=== PATIENT | female | born 1955 | race Caucasian/White ===

== ENCOUNTER 2023-01-30 14:01 | Inpatient (IN) | payer MEDICARE, OTHER ==
[2023-01-30] MEDS ORDERED: SODIUM CHLORIDE 0.9% 1,000 ML IV STA (14:30)
[2023-01-30 15:10] LABS: Anisocytosis Slight; Basophils % (A) 0 %; Eosinophils # (A) 0.1 k/uL (0-0.7); Eosinophils % (A) 2 %; HCT 38.2 % (34.0-46.0); HGB 13.7 gm/dL (11.4-16.0); Lymphocytes % (A) 31 %; MCH 33.8 pg (25.0-35.0); MCHC 35.9 g/dL (31.0-37.0); MCV 94.3 fL (80.0-100.0); Mean Platelet Volume 9.8; Monocytes # (A) 0.3 k/uL (0-1.0); Monocytes % (A) 10 %; Neutrophils # (A) 1.7 k/uL (1.3-7.7); Neutrophils % (A) 55 %; RBC 4.05 m/uL (3.80-5.40); RDW 16.9 % (11.5-15.5); WBC 3.1 k/uL (3.8-10.6)
[2023-01-30 15:24] LABS: INR 1.1 (<1.2); Prothrombin Time 11.4 sec (9.0-12.0)
--- NOTE | 2023-01-30 15:28 | ED ---
Dizziness HPI - General Chief Complaint: Dizziness Stated Complaint: Weakness Time Seen by Provider: 01/30/23 14:21 Source: patient, EMS, RN notes reviewed Mode of arrival: EMS Limitations: no limitations - History of Present Illness Initial Comments: This is a 67-year-old female who presents to the emergency department for dizziness. Patient states that when she went to walk to her mailbox today, she suddenly felt very weak and unsteady. Also felt somewhat disoriented. When she came back inside, she felt like she was stumbling and had to grab onto her boateng and furniture to get around. She denies any chest pain or shortness of breath. She was also worried that her legs might give out on her. Denies any history of similar symptoms in the past. Denies any room spinning sensations. She does report a fall 4 months ago resulting in back pain. States that this has still been bothersome. She did not hit her head or sustain any loss of consciousness. When this occurred, she did feel like she had swelling and numbness in both of her legs. That sensation has since resolved. Additionally, she notes problems with visual changes in the right eye that have been occurring intermittently. With regards to her elevated blood pressure, she used to take metoprolol, however she is not currently taking any medication. Denies any fevers, chills, sore throat, cough, dyspnea, chest pain, palpitations, abdominal pain, nausea, vomiting, diarrhea, or headaches. MD Complaint: dizziness, lightheadedness - Related Data Home Medications Medication Instructions Recorded Confirmed Acetaminophen Tab [Tylenol] 1,000 mg PO Q6H PRN 01/30/23 01/30/23 Omeprazole 20 mg PO DAILY PRN 01/30/23 01/30/23 Previous Rx's Medication Instructions Recorded Aspirin 81 mg PO DAILY #30 tab 02/02/23 Metoprolol Tartrate [Lopressor] 25 mg PO BID #60 tab 02/02/23 Sertraline [Zoloft] 25 mg PO DAILY #30 tab 02/02/23 Thiamine [Vitamin B-1] 100 mg PO DAILY #30 tablet 02/02/23 diazePAM [Valium] 5 mg PO BID PRN #4 tab 02/02/23 hydrALAZINE HCL [Apresoline] 50 mg PO BID #60 tab 02/02/23 Allergies Allergy/AdvReac Type Severity Reaction Status Date / Time fentanyl Allergy Nausea & Verified 01/30/23 15:23 Vomiting hydrocodone [From [place]] Allergy Nausea & Verified 01/30/23 15:23 Vomiting hydromorphone [From Dilaudid] Allergy Nausea & Verified 01/30/23 15:23 Vomiting morphine Allergy Nausea & Verified 01/30/23 15:23 Vomiting oxycodone [From Percocet] Allergy Nausea & Verified 01/30/23 15:23 Vomiting clonazepam [From Klonopin] AdvReac Severe extreme Verified 01/30/23 15:23 drop in Blood pressure prochlorperazine AdvReac Severe Suicidal Verified 01/30/23 15:23 [From Compazine] ideations diphenhydramine AdvReac aggresive Verified 01/30/23 15:23 [From Benadryl] behavior, aggitation Review of Systems ROS Statement: Those systems with pertinent positive or pertinent negative responses have been documented in the HPI. ROS Other: All systems not noted in ROS Statement are negative. Past Medical History Past Medical History: Hypertension, Pneumonia History of Any Multi-Drug Resistant Organisms: None Reported Past Surgical History: Cholecystectomy, Hysterectomy, Tonsillectomy Past Psychological History: Unable to Obtain Smoking Status: Never smoker Past Alcohol Use History: Heavy Past Drug Use History: None Reported - Past Family History Mother Family Medical History: Dementia Sister(s) Family Medical History: Cancer Brother(s) Family Medical History: Cancer General Exam Limitations: no limitations General appearance: alert, in no apparent distress Head exam: Present: atraumatic, normocephalic, normal inspection Eye exam: Present: normal appearance, PERRL, EOMI. Absent: scleral icterus, conjunctival injection, periorbital swelling Respiratory exam: Present: normal lung sounds bilaterally. Absent: respiratory distress, wheezes, rales, rhonchi, stridor Cardiovascular Exam: Present: regular rate, normal rhythm, normal heart sounds. Absent: systolic murmur, diastolic murmur, rubs, gallop, clicks Extremities exam: Present: normal inspection, full ROM, normal capillary refill. Absent: tenderness, pedal edema, joint swelling, calf tenderness Neurological exam: Present: alert, oriented X3, CN II-XII intact Psychiatric exam: Present: normal affect, normal mood Skin exam: Present: warm, dry, intact, normal color. Absent: rash Course Vital Signs 01/30/23 01/30/23 01/30/23 14:08 15:16 17:16 Temperature 98.5 F Pulse Rate 80 80 86 Pulse Rate [ Pulse Oximetery ] Respiratory 18 18 18 Rate Blood Pressure 186/95 194/110 210/111 Blood Pressure [Right Arm] O2 Sat by Pulse 94 L 97 98 Oximetry 01/30/23 01/30/23 01/30/23 19:01 19:44 20:00 Temperature 98.5 F Pulse Rate 89 73 Pulse Rate [ 80 Pulse Oximetery ] Respiratory 18 18 18 Rate Blood Pressure 188/100 167/100 Blood Pressure 168/83 [Right Arm] O2 Sat by Pulse 97 94 L Oximetry 01/30/23 20:27 Temperature Pulse Rate 89 Pulse Rate [ Pulse Oximetery ] Respiratory 18 Rate Blood Pressure 150/100 Blood Pressure [Right Arm] O2 Sat by Pulse 98 Oximetry Medical Decision Making - Medical Decision Making This is a 67-year-old female who presents to the emergency department for dizziness. Was pt. sent in by a medical professional or institution? @ -No Did you speak to anyone other than the patient for history? @ -No Did you review nursing and triage notes? @ -Yes, and I agree, it is accurate with regards to the patient's symptoms. Were old charts reviewed? @ -No Differential Diagnosis? @ -Differential Dizziness: Benign paroxysmal positional Vertigo, Menieres disease, otitis media, acoustic neuroma, vertebrobasilar insufficiency, cerebellar stroke, encephalitis, hypov olemic, arrhythmia, coronary artery syndrome, anemia, this is not meant to be an all-inclusive list EKG interpreted by me (3pts min.)? @ -Sinus rhythm. Ventricular rate 82 bpm, AR interval 147 ms, QRS duration 79 ms, QTC 440 ms. X-rays interpreted by me (1pt min.)? @ -Chest x-ray obtained, my interpretation identifies no localized consolidations or infiltrates. CT interpreted by me (1pt min.)? @ -Computed tomography scan of the brain and c-spine obtained. My interpretation identifies no evidence of an acute intracranial hemorrhage, skull fracture, or cervical spine fracture. CT angiogram of the head and neck obtained as well. My interpretation identifies no evidence of an aneurysm or significant stenosis. What testing was considered but not performed? (CT, X-rays, U/S, labs)? Why? @ -None What meds were considered but not given? Why? @ -None Did you discuss the management of the patient with other professionals? @ -Yes, Dr. Delcid, who accepts the patient for admission. Did you reconcile home meds? @ -No Was smoking cessation discussed for >3mins.? @ -No Was critical care preformed (if so, how long)? @ -No Were there social determinants of health that impacted care today? How? (Homelessness, low income, unemployed, alcoholism, drug addiction, transportation, low edu. Level, literacy, decrease access to med. care, intermediate, rehab)? @ -No Was there de-escalation of care discussed even if they declined? (Discuss DNR or withdrawal of care, Hospice)? @ -No What co-morbidities impacted this encounter? (DM, HTN, Smoking, COPD, CAD, Cancer, CVA, Hep., AIDS, mental health diagnosis, sleep apnea, morbid obesity)? @ -HTN Was patient admitted / discharged? @ -Admitted. Lab work obtained revealing thrombocytopenia and an elevated troponin. Patient has no active chest pain or shortness of breath. However, she does continue to feel somewhat dizzy. Liver enzymes are also elevated and there is mild hypokalemia. Patient does have a history of heavy alcohol abuse. Chest x-ray, CT angiogram of the head and neck, and CT scan of the brain without contrast were obtained. Computed tomography scan of the brain and C-spine and CT angiogram of the head and neck reveal no acute findings. Chest x-ray also had no acute irregularities. Her blood pressure did continue to increase and was notably elevated at 210/111. Patient has a history of hypertension is not currently being treated for it. IV labetalol was administered. She was admitted to medicine for further management of dizziness, elevated troponin, and hypertension. Consults for neurology and cardiology placed per the admitting team's request. She was started on thiamine and a vitamin B1 level was ordered a s well as Q4 neuro checks. Undiagnosed new problem with uncertain prognosis? @ -None Drug Therapy requiring intensive monitoring for toxicity (Heparin, Nitro, Insulin, Cardizem)? @ -None Were any procedures done? @ -None Diagnosis/symptom? @ -Dizziness, elevated troponin, hypertensive emergency Acute, or Chronic, or Acute on Chronic? @ -Acute Uncomplicated (without systemic symptoms) or Complicated (systemic symptoms)? @ -Complicated Side effects of treatment? @ -None Exacerbation, Progression, or Severe Exacerbation] @ -Not applicable Poses a threat to life or bodily function? @ -Yes This case was discussed in detail with the attending ED physician, Dr. Terrell. Presentation, findings, and treatment plan discussed in detail as well. - Lab Data Result diagrams: 02/01/23 09:38 02/01/23 09:38 Lab Results 01/30/23 01/30/23 01/30/23 Range/Units 14:42 14:42 14:42 WBC 3.1 L (3.8-10.6) k/uL RBC 4.05 (3.80-5.40) m/uL Hgb 13.7 (11.4-16.0) gm/dL Hct 38.2 (34.0-46.0) % MCV 94.3 (80.0-100.0) fL MCH 33.8 (25.0-35.0) pg MCHC 35.9 (31.0-37.0) g/dL RDW 16.9 H (11.5-15.5) % Plt Count 71 L (150-450) k/uL MPV 9.8 Neutrophils % 55 % Lymphocytes % 31 % Monocytes % 10 % Eosinophils % 2 % Basophils % 0 % Neutrophils # 1.7 (1.3-7.7) k/uL Lymphocytes # 1.0 (1.0-4.8) k/uL Monocytes # 0.3 (0-1.0) k/uL Eosinophils # 0.1 (0-0.7) k/uL Basophils # 0.0 (0-0.2) k/uL Manual Slide Review Performed Anisocytosis Slight Macrocytosis PT 11.4 (9.0-12.0) sec INR 1.1 (<1.2) Sodium 134 L (137-145) mmol/L Potassium 3.2 L (3.5-5.1) mmol/L Chloride 94 L (98-107) mmol/L Carbon Dioxide 29 (22-30) mmol/L Anion Gap 11 mmol/L BUN 17 (7-17) mg/dL Creatinine 0.76 (0.52-1.04) mg/dL Est GFR (CKD-EPI)AfAm >90 (>60 ml/min/1.73 sqM) Est GFR (CKD-EPI)NonAf 83 (>60 ml/min/1.73 sqM) Glucose 151 H (74-99) mg/dL Estimated Ave Glu mg/dL Hemoglobin A1c (0.0-6.0) % Plasma Lactic Acid Mark (0.7-2.0) mmol/L Calcium 8.8 (8.4-10.2) mg/dL Magnesium (1.6-2.3) mg/dL Total Bilirubin 1.7 H (0.2-1.3) mg/dL Conjugated Bilirubin (0.0-0.3) mg/dL Unconjugated Bilirubin (0.0-1.1) mg/dL Delta Bilirubin (0.0-0.2) mg/dL AST 130 H (14-36) U/L ALT 98 H (4-34) U/L Alkaline Phosphatase 48 (38-126) U/L Troponin I (0.000-0.034) ng/mL Total Protein 7.5 (6.3-8.2) g/dL Albumin 4.6 (3.5-5.0) g/dL Triglycerides (0.00-149.00) mg/dL Cholesterol (0.00-200.00) mg/dL LDL Cholesterol, Calc (0.0-131.0) mg/dL VLDL Cholesterol, Calc (5.00-40.00) mg/dL HDL Cholesterol (40.00-60.00) mg/dL Cholesterol/HDL Ratio Ratio Vitamin B12 (200.0-944.0) pg/mL Folate (4.40-31.00) ng/mL TSH 1.680 (0.465-4.680) mIU/L Urine Color Urine Appearance (Clear) Urine pH (5.0-8.0) Ur Specific [place] (1.001-1.035) Urine Protein (Negative) Urine Glucose (UA) (Negative) Urine Ketones (Negative) Urine Blood (Negative) Urine Nitrite (Negative) Urine Bilirubin (Negative) Urine Urobilinogen (<2.0) mg/dL Ur Leukocyte Esterase (Negative) Urine RBC (0-5) /hpf Urine WBC (0-5) /hpf Ur Squamous Epith Cells (0-4) /hpf Amorphous Sediment (None) /hpf Urine Bacteria (None) /hpf Hyaline Casts (0-2) /lpf Urine Mucus (None) /hpf Urine Opiates Screen (NotDetected) Ur Oxycodone Screen (NotDetected) Urine Methadone Screen (NotDetected) Ur Propoxyphene Screen (NotDetected) Ur Barbiturates Screen (NotDetected) U Tricyclic Antidepress (NotDetected) Ur Phencyclidine Scrn (NotDetected) Ur Amphetamines Screen (NotDetected) U Methamphetamines Scrn (NotDetected) U Benzodiazepines Scrn (NotDetected) Urine Cocaine Screen (NotDetected) U Marijuana (THC) Screen (NotDetected) 01/30/23 01/30/23 01/30/23 Range/Units 14:42 14:42 20:58 WBC (3.8-10.6) k/uL RBC (3.80-5.40) m/uL Hgb (11.4-16.0) gm/dL Hct (34.0-46.0) % MCV (80.0-100.0) fL MCH (25.0-35.0) pg MCHC (31.0-37.0) g/dL RDW (11.5-15.5) % Plt Count (150-450) k/uL MPV Neutrophils % % Lymphocytes % % Monocytes % % Eosinophils % % Basophils % % Neutrophils # (1.3-7.7) k/uL Lymphocytes # (1.0-4.8) k/uL Monocytes # (0-1.0) k/uL Eosinophils # (0-0.7) k/uL Basophils # (0-0.2) k/uL Manual Slide Review Anisocytosis Macrocytosis PT (9.0-12.0) sec INR (<1.2) Sodium (137-145) mmol/L Potassium (3.5-5.1) mmol/L Chloride (98-107) mmol/L Carbon Dioxide (22-30) mmol/L Anion Gap mmol/L BUN (7-17) mg/dL Creatinine (0.52-1.04) mg/dL Est GFR (CKD-EPI)AfAm (>60 ml/min/1.73 sqM) Est GFR (CKD-EPI)NonAf (>60 ml/min/1.73 sqM) Glucose (74-99) mg/dL Estimated Ave Glu mg/dL Hemoglobin A1c (0.0-6.0) % Plasma Lactic Acid Mark 1.7 (0.7-2.0) mmol/L Calcium (8.4-10.2) mg/dL Magnesium (1.6-2.3) mg/dL Total Bilirubin (0.2-1.3) mg/dL Conjugated Bilirubin (0.0-0.3) mg/dL Unconjugated Bilirubin (0.0-1.1) mg/dL Delta Bilirubin (0.0-0.2) mg/dL AST (14-36) U/L ALT (4-34) U/L Alkaline Phosphatase (38-126) U/L Troponin I 0.039 H* 0.046 H* (0.000-0.034) ng/mL Total Protein (6.3-8.2) g/dL Albumin (3.5-5.0) g/dL Triglycerides (0.00-149.00) mg/dL Cholesterol (0.00-200.00) mg/dL LDL Cholesterol, Calc (0.0-131.0) mg/dL VLDL Cholesterol, Calc (5.00-40.00) mg/dL HDL Cholesterol (40.00-60.00) mg/dL Cholesterol/HDL Ratio Ratio Vitamin B12 (200.0-944.0) pg/mL Folate (4.40-31.00) ng/mL TSH (0.465-4.680) mIU/L Urine Color Urine Appearance (Clear) Urine pH (5.0-8.0) Ur Specific [place] (1.001-1.035) Urine Protein (Negative) Urine Glucose (UA) (Negative) Urine Ketones (Negative) Urine Blood (Negative) Urine Nitrite (Negative) Urine Bilirubin (Negative) Urine Urobilinogen (<2.0) mg/dL Ur Leukocyte Esterase (Negative) Urine RBC (0-5) /hpf Urine WBC (0-5) /hpf Ur Squamous Epith Cells (0-4) /hpf Amorphous Sediment (None) /hpf Urine Bacteria (None) /hpf Hyaline Casts (0-2) /lpf Urine Mucus (None) /hpf Urine Opiates Screen (NotDetected) Ur Oxycodone Screen (NotDetected) Urine Methadone Screen (NotDetected) Ur Propoxyphene Screen (NotDetected) Ur Barbiturates Screen (NotDetected) U Tricyclic Antidepress (NotDetected) Ur Phencyclidine Scrn (NotDetected) Ur Amphetamines Screen (NotDetected) U Methamphetamines Scrn (NotDetected) U Benzodiazepines Scrn (NotDetected) Urine Cocaine Screen (NotDetected) U Marijuana (THC) Screen (NotDetected) 01/31/23 01/31/23 01/31/23 Range/Units 01:17 09:31 09:31 WBC 2.5 L (3.8-10.6) k/uL RBC 4.06 (3.80-5.40) m/uL Hgb 14.1 (11.4-16.0) gm/dL Hct 39.3 (34.0-46.0) % MCV 96.9 (80.0-100.0) fL MCH 34.7 (25.0-35.0) pg MCHC 35.8 (31.0-37.0) g/dL RDW 17.1 H (11.5-15.5) % Plt Count 64 L (150-450) k/uL MPV 11.8 Neutrophils % 44 % Lymphocytes % 39 % Monocytes % 10 % Eosinophils % 3 % Basophils % 1 % Neutrophils # 1.1 L (1.3-7.7) k/uL Lymphocytes # 1.0 (1.0-4.8) k/uL Monocytes # 0.2 (0-1.0) k/uL Eosinophils # 0.1 (0-0.7) k/uL Basophils # 0.0 (0-0.2) k/uL Manual Slide Review Anisocytosis Slight Macrocytosis Slight PT (9.0-12.0) sec INR (<1.2) Sodium (137-145) mmol/L Potassium (3.5-5.1) mmol/L Chloride (98-107) mmol/L Carbon Dioxide (22-30) mmol/L Anion Gap mmol/L BUN (7-17) mg/dL Creatinine (0.52-1.04) mg/dL Est GFR (CKD-EPI)AfAm (>60 ml/min/1.73 sqM) Est GFR (CKD-EPI)NonAf (>60 ml/min/1.73 sqM) Glucose (74-99) mg/dL Estimated Ave Glu mg/dL Hemoglobin A1c (0.0-6.0) % Plasma Lactic Acid Mark (0.7-2.0) mmol/L Calcium (8.4-10.2) mg/dL Magnesium (1.6-2.3) mg/dL Total Bilirubin (0.2-1.3) mg/dL Conjugated Bilirubin (0.0-0.3) mg/dL Unconjugated Bilirubin (0.0-1.1) mg/dL Delta Bilirubin (0.0-0.2) mg/dL AST (14-36) U/L ALT (4-34) U/L Alkaline Phosphatase (38-126) U/L Troponin I 0.036 H* (0.000-0.034) ng/mL Total Protein (6.3-8.2) g/dL Albumin (3.5-5.0) g/dL Triglycerides (0.00-149.00) mg/dL Cholesterol (0.00-200.00) mg/dL LDL Cholesterol, Calc (0.0-131.0) mg/dL VLDL Cholesterol, Calc (5.00-40.00) mg/dL HDL Cholesterol (40.00-60.00) mg/dL Cholesterol/HDL Ratio Ratio Vitamin B12 (200.0-944.0) pg/mL Folate 11.60 (4.40-31.00) ng/mL TSH (0.465-4.680) mIU/L Urine Color Urine Appearance (Clear) Urine pH (5.0-8.0) Ur Specific [place] (1.001-1.035) Urine Protein (Negative) Urine Glucose (UA) (Negative) Urine Ketones (Negative) Urine Blood (Negative) Urine Nitrite (Negative) Urine Bilirubin (Negative) Urine Urobilinogen (<2.0) mg/dL Ur Leukocyte Esterase (Negative) Urine RBC (0-5) /hpf Urine WBC (0-5) /hpf Ur Squamous Epith Cells (0-4) /hpf Amorphous Sediment (None) /hpf Urine Bacteria (None) /hpf Hyaline Casts (0-2) /lpf Urine Mucus (None) /hpf Urine Opiates Screen (NotDetected) Ur Oxycodone Screen (NotDetected) Urine Methadone Screen (NotDetected) Ur Propoxyphene Screen (NotDetected) Ur Barbiturates Screen (NotDetected) U Tricyclic Antidepress (NotDetected) Ur Phencyclidine Scrn (NotDetected) Ur Amphetamines Screen (NotDetected) U Methamphetamines Scrn (NotDetected) U Benzodiazepines Scrn (NotDetected) Urine Cocaine Screen (NotDetected) U Marijuana (THC) Screen (NotDetected) 01/31/23 01/31/23 01/31/23 Range/Units 09:31 12:08 17:31 WBC (3.8-10.6) k/uL RBC (3.80-5.40) m/uL Hgb (11.4-16.0) gm/dL Hct (34.0-46.0) % MCV (80.0-100.0) fL MCH (25.0-35.0) pg MCHC (31.0-37.0) g/dL RDW (11.5-15.5) % Plt Count (150-450) k/uL MPV Neutrophils % % Lymphocytes % % Monocytes % % Eosinophils % % Basophils % % Neutrophils # (1.3-7.7) k/uL Lymphocytes # (1.0-4.8) k/uL Monocytes # (0-1.0) k/uL Eosinophils # (0-0.7) k/uL Basophils # (0-0.2) k/uL Manual Slide Review Anisocytosis Macrocytosis PT (9.0-12.0) sec INR (<1.2) Sodium 140 (137-145) mmol/L Potassium 3.0 L (3.5-5.1) mmol/L Chloride 99 (98-107) mmol/L Carbon Dioxide 32 H (22-30) mmol/L Anion Gap 9 mmol/L BUN 12 (7-17) mg/dL Creatinine 0.69 (0.52-1.04) mg/dL Est GFR (CKD-EPI)AfAm >90 (>60 ml/min/1.73 sqM) Est GFR (CKD-EPI)NonAf >90 (>60 ml/min/1.73 sqM) Glucose 99 (74-99) mg/dL Estimated Ave Glu mg/dL 115 Hemoglobin A1c 5.6 (0.0-6.0) % Plasma Lactic Acid Mark (0.7-2.0) mmol/L Calcium 8.2 L (8.4-10.2) mg/dL Magnesium (1.6-2.3) mg/dL Total Bilirubin 1.5 H (0.2-1.3) mg/dL Conjugated Bilirubin 0.0 (0.0-0.3) mg/dL Unconjugated Bilirubin 1.0 (0.0-1.1) mg/dL Delta Bilirubin 0.5 H (0.0-0.2) mg/dL AST 143 H (14-36) U/L ALT 117 H (4-34) U/L Alkaline Phosphatase 49 (38-126) U/L Troponin I (0.000-0.034) ng/mL Total Protein 6.9 (6.3-8.2) g/dL Albumin 4.0 (3.5-5.0) g/dL Triglycerides 86.80 (0.00-149.00) mg/dL Cholesterol 204.00 H (0.00-200.00) mg/dL LDL Cholesterol, Calc 112.4 (0.0-131.0) mg/dL VLDL Cholesterol, Calc 17.36 (5.00-40.00) mg/dL HDL Cholesterol 74.20 H (40.00-60.00) mg/dL Cholesterol/HDL Ratio 2.75 Ratio Vitamin B12 651.0 (200.0-944.0) pg/mL Folate (4.40-31.00) ng/mL TSH (0.465-4.680) mIU/L Urine Color Yellow Urine Appearance Cloudy H (Clear) Urine pH 6.5 (5.0-8.0) Ur Specific [place] 1.034 (1.001-1.035) Urine Protein 1+ H (Negative) Urine Glucose (UA) Negative (Negative) Urine Ketones Trace H (Negative) Urine Blood Negative (Negative) Urine Nitrite Negative (Negative) Urine Bilirubin 1+ H (Negative) Urine Urobilinogen 12.0 (<2.0) mg/dL Ur Leukocyte Esterase Trace H (Negative) Urine RBC 2 (0-5) /hpf Urine WBC 11 H (0-5) /hpf Ur Squamous Epith Cells 16 H (0-4) /hpf Amorphous Sediment Occasional H (None) /hpf Urine Bacteria Rare H (None) /hpf Hyaline Casts 1 (0-2) /lpf Urine Mucus Few H (None) /hpf Urine Opiates Screen Not Detected (NotDetected) Ur Oxycodone Screen Not Detected (NotDetected) Urine Methadone Screen Not Detected (NotDetected) Ur Propoxyphene Screen Not Detected (NotDetected) Ur Barbiturates Screen Not Detected (NotDetected) U Tricyclic Antidepress Not Detected (NotDetected) Ur Phencyclidine Scrn Not Detected (NotDetected) Ur Amphetamines Screen Not Detected (NotDetected) U Methamphetamines Scrn Not Detected (NotDetected) U Benzodiazepines Scrn Detected H (NotDetected) Urine Cocaine Screen Not Detected (NotDetected) U Marijuana (THC) Screen Not Detected (NotDetected) 02/01/23 02/01/23 Range/Units 09:38 09:38 WBC 4.4 (3.8-10.6) k/uL RBC 4.27 (3.80-5.40) m/uL Hgb 14.3 (11.4-16.0) gm/dL Hct 42.4 (34.0-46.0) % MCV 99.3 (80.0-100.0) fL MCH 33.4 (25.0-35.0) pg MCHC 33.6 (31.0-37.0) g/dL RDW 16.7 H (11.5-15.5) % Plt Count 143 L D (150-450) k/uL MPV 8.5 Neutrophils % 46 % Lymphocytes % 33 % Monocytes % 13 % Eosinophils % 4 % Basophils % 1 % Neutrophils # 2.0 (1.3-7.7) k/uL Lymphocytes # 1.5 (1.0-4.8) k/uL Monocytes # 0.6 (0-1.0) k/uL Eosinophils # 0.2 (0-0.7) k/uL Basophils # 0.0 (0-0.2) k/uL Manual Slide Review Anisocytosis Slight Macrocytosis Slight PT (9.0-12.0) sec INR (<1.2) Sodium 139 (137-145) mmol/L Potassium 3.6 (3.5-5.1) mmol/L Chloride 100 (98-107) mmol/L Carbon Dioxide 25 (22-30) mmol/L Anion Gap 14 mmol/L BUN 14 (7-17) mg/dL Creatinine 0.76 (0.52-1.04) mg/dL Est GFR (CKD-EPI)AfAm >90 (>60 ml/min/1.73 sqM) Est GFR (CKD-EPI)NonAf 83 (>60 ml/min/1.73 sqM) Glucose 106 H (74-99) mg/dL Estimated Ave Glu mg/dL Hemoglobin A1c (0.0-6.0) % Plasma Lactic Acid Mark (0.7-2.0) mmol/L Calcium 9.0 (8.4-10.2) mg/dL Magnesium 1.2 L (1.6-2.3) mg/dL Total Bilirubin (0.2-1.3) mg/dL Conjugated Bilirubin (0.0-0.3) mg/dL Unconjugated Bilirubin (0.0-1.1) mg/dL Delta Bilirubin (0.0-0.2) mg/dL AST (14-36) U/L ALT (4-34) U/L Alkaline Phosphatase (38-126) U/L Troponin I (0.000-0.034) ng/mL Total Protein (6.3-8.2) g/dL Albumin (3.5-5.0) g/dL Triglycerides (0.00-149.00) mg/dL Cholesterol (0.00-200.00) mg/dL LDL Cholesterol, Calc (0.0-131.0) mg/dL VLDL Cholesterol, Calc (5.00-40.00) mg/dL HDL Cholesterol (40.00-60.00) mg/dL Cholesterol/HDL Ratio Ratio Vitamin B12 (200.0-944.0) pg/mL Folate (4.40-31.00) ng/mL TSH (0.465-4.680) mIU/L Urine Color Urine Appearance (Clear) Urine pH (5.0-8.0) Ur Specific [place] (1.001-1.035) Urine Protein (Negative) Urine Glucose (UA) (Negative) Urine Ketones (Negative) Urine Blood (Negative) Urine Nitrite (Negative) Urine Bilirubin (Negative) Urine Urobilinogen (<2.0) mg/dL Ur Leukocyte Esterase (Negative) Urine RBC (0-5) /hpf Urine WBC (0-5) /hpf Ur Squamous Epith Cells (0-4) /hpf Amorphous Sediment (None) /hpf Urine Bacteria (None) /hpf Hyaline Casts (0-2) /lpf Urine Mucus (None) /hpf Urine Opiates Screen (NotDetected) Ur Oxycodone Screen (NotDetected) Urine Methadone Screen (NotDetected) Ur Propoxyphene Screen (NotDetected) Ur Barbiturates Screen (NotDetected) U Tricyclic Antidepress (NotDetected) Ur Phencyclidine Scrn (NotDetected) Ur Amphetamines Screen (NotDetected) U Methamphetamines Scrn (NotDetected) U Benzodiazepines Scrn (NotDetected) Urine Cocaine Screen (NotDetected) U Marijuana (THC) Screen (NotDetected) - Radiology Data Radiology results: report reviewed, image reviewed Disposition Clinical Impression: Elevated troponin, Dizziness Disposition: ADMITTED IP TO THIS [facility] Condition: Fair
[2023-01-30 15:34] LABS: ALT 98 U/L (4-34); African American GFR (CKD) >90 (>60 ml/min/1.73 sqM); Albumin 4.6 g/dL (3.5-5.0); Anion Gap 11 mmol/L; Blood Urea Nitrogen 17 mg/dL (7-17); Calcium 8.8 mg/dL (8.4-10.2); Carbon Dioxide 29 mmol/L (22-30); Chloride 94 mmol/L (98-107); Glucose 151 mg/dL (74-99); Non-African American GFR(CKD) 83 (>60 ml/min/1.73 sqM); Sodium 134 mmol/L (137-145); Total Bilirubin 1.7 mg/dL (0.2-1.3); Total Protein 7.5 g/dL (6.3-8.2)
[2023-01-30 16:09] LABS: Platelet Count 71 k/uL (150-450)
[2023-01-30 16:26] LABS: AST 130 U/L (14-36); Alkaline Phosphatase 48 U/L (38-126); Potassium 3.2 mmol/L (3.5-5.1)
--- NOTE | 2023-01-30 17:44 | CT ---
EXAMINATION TYPE: CT brain cspine wo con CT DLP: 1444.9 mGycm, Automated exposure control for dose reduction was used. DATE OF EXAM: 01/30/2023 5:34 PM COMPARISON: None. CLINICAL INDICATION:Female, 67 years old with history of Weakness, visual changes; weakness in legs TECHNIQUE: Brain: Multiple axial CT images of the brain were obtained without IV contrast. Cspine: Axial CT images from the skull base to the inferior aspect of T2 we obtained without intraven ous contrast. Coronal and sagittal reformatted images were also reviewed. FINDINGS: Brain: Extra-axial spaces: No abnormal extra-axial fluid collections. Ventricular system: Within normal limits Cerebral parenchyma: No acute intraparenchymal hemorrhage or mass effect. The villavicencio-white junction is well differentiated. Cerebellum: Unremarkable. Mass effect: No evidence of midline shift. Intracranial vasculature: unremarkable Soft tissues: Normal. Calvarium/osseous structures: No depressed skull fracture. Paranasal sinuses and mastoid air cells: Moderate scattered paranasal sinus disease involving the rig ht maxillary sinus. Visualized orbits: Orbital contents are intact. Cervical spine: Fracture: None. Osseous structures: Multilevel degenerative disc disease changes with endplate spurring and disc oste ophyte complex's. Vertebral alignment: Within normal limits. Spinal canal/Neural Foramina: No evidence of significant spinal canal narrowing. No evidence for sign ificant neural foraminal stenosis. Neck soft tissues: Prevertebral soft tissues are within normal limits. Other: The airway is patent. The lung apices are clear. IMPRESSION: 1. No acute intracranial process. 2. No evidence of cervical spine fracture. 3. Mild multilevel degenerative disc disease.
--- NOTE | 2023-01-30 17:48 | CT ---
EXAMINATION TYPE: CT angio head neck CT DLP: 457 mGycm, Automated exposure control for dose reduction was used. DATE OF EXAM: 01/30/2023 5:35 PM COMPARISON: CT same day. CLINICAL INDICATION:Female, 67 years old with history of Weakness, visual changes; PHH, weakness in l egs TECHNIQUE: Axially acquired helical CT angiogram of the head and neck was obtained with contrast. Axi al images are supplemented with 3D reconstructions which were post-processed at an independent [facility]st [facility] NASCET criteria used. Contrast used:65ml mL of Isovue 300 with IV Contrast, Oral contrast used: None. FINDINGS: CTA HEAD: No evidence of acute intracranial hemorrhage, mass effect, or midline shift. The ventricles, sulci, a nd cisterns are unremarkable. The visualized portions of the internal carotid arteries, middle cerebral arteries, anterior cerebral arteries, and posterior cerebral arteries are patent. The basilar and vertebral arteries are patent. CTA NECK: Right Carotid System: The common carotid artery and external carotid artery are patent. The carotid bifurcation demonstrate s no evidence of hemodynamically significant stenosis. The remaining portions of the internal carotid artery demonstrate normal size without significant narrowing. Left Carotid System: The common carotid artery and external carotid artery are patent. The carotid bifurcation demonstrate s no evidence of hemodynamically significant stenosis. The remaining portions of the internal carotid artery demonstrate normal size without significant narrowing. Vertebral arteries are patent without evidence hemodynamically significant stenosis. There is a three-vessel aortic arch. The origins of the great vessels are patent. No evidence of hemo dynamically significant stenosis. Upper thorax: IMPRESSION: 1. No evidence of dissection of the cervical internal carotid arteries or vertebral arteries or any e vidence of significant stenosis at the carotid bifurcations. 2. No evidence of intracranial high-grade stenosis or intracranial aneurysm.
[2023-01-30] MEDS ORDERED: ASPIRIN 325 MG TAB PO STA (17:59)
[2023-01-30] MEDS ORDERED: KETOROLAC 15 MG/ML 1 ML VIAL IVP PRN (18:08)
[2023-01-30] MEDS ORDERED: IBUPROFEN 400 MG TAB PO PRN (18:08)
[2023-01-30] MEDS ORDERED: ONDANSETRON 4 MG/2 ML VIAL IVP PRN (18:08)
[2023-01-30] MEDS ORDERED: ACETAMINOPHEN TAB 325 MG TAB PO PRN (18:08)
[2023-01-30] MEDS ORDERED: NALOXONE 0.4 MG/ML 1 ML VIAL IV PRN (18:08)
[2023-01-30] MEDS ORDERED: LORazepam 1 MG TAB PO STA (18:12)
[2023-01-30] MEDS ORDERED: LABETALOL 5 MG/ML VIAL MDV IVP STA (18:12)
--- NOTE | 2023-01-30 18:18 | XR ---
EXAMINATION TYPE: XR chest 2V DATE OF EXAM: 01/30/2023 5:36 PM COMPARISON: None TECHNIQUE: XR chest 2V Frontal and lateral views of the chest. CLINICAL INDICATION:Female, 67 years old with history of Dizziness; FINDINGS: Lungs/Pleura: There is no evidence of pleural effusion, focal consolidation, or pneumothorax. Pulmonary vascularity: Unremarkable. Heart/mediastinum: Cardiomediastinal silhouette is unremarkable. Musculoskeletal: No acute osseous pathology. IMPRESSION: No acute cardiopulmonary disease/process.
[2023-01-30] MEDS: THIAMINE 100 MG/ML 2 ML VIAL IVP SCH (23:32)
--- NOTE | 2023-01-30 23:54 | P.HPIM ---
History of Present Illness This is a pleasant 67 years old female with past medical history of alcohol abuse, she drinks alcohol and binge pattern, hypertension currently not on medication. Presents because of difficulty ambulating, she was trying to get her mail today when she felt stumbling and weakness in her legs, she could manage to move around but then came to emergency room Also she is complaining of from tingling in her right leg. About 5 weeks ago she fell backwards and she did the back of her right shoulder blade and she is been having pain since then but it is healing as per patient She feels little dizzy and headache but she denies specific weakness or numbness. She describes her dizziness is like presyncope rather than vertigo. She has some blurriness in his right eye but is gone now. She denies any chest pain or dyspnea or coughing. No change in urine or bowel habits, no abdominal pain diarrhea or vomiting or dysuria. However last Thursday she had some vomiting and diarrhea which is resolved. She misses her who but she denies overt depression or suicidal ideation She denies smoking or illicit drugs however she drinks alcohol she drinks 1 pint as binge style. Patient's vitals are stable, blood pressure is slightly elevated showing mild leukopenia and thrombocytopenia with RBC 3.1 and platelet count 71,000. Hemoglobin normal INR is 1.1. Potassium 3.2, resolved BMP is unremarkable. Bilirubin slightly elevated at 1.7 and AST 1:30 and ALT 98. Troponin is elevated 0.03 and 0.04. TSH is normal 1.6. Chest x-ray: No acute process CAT angio of the head and neck: No evidence of dissection of the cervical i nternal carotid arteries or vertebral arteries or any evidence of significant stenosis at carotid bifurcations. No evidence of intracranial stenosis or aneurysm CT of the brain: No acute intracranial process Review of Systems Review of systems CONSTITUTIONAL: No fever, no malaise, no fatigue. HEENT: No recent visual problems or hearing problems. Denied any sore throat. CARDIOVASCULAR: No orthopnea, PND, no palpitations, no syncope. PULMONARY: No shortness of breath, no cough, no hemoptysis. GASTROINTESTINAL: No diarrhea, no nausea, no vomiting, no abdominal pain. Normoactive bowel sounds. NEUROLOGICAL: No headaches, no weakness, no numbness. HEMATOLOGICAL: Denies any bleeding or petechiae. GENITOURINARY: Denies any burning micturition, frequency, or urgency. MUSCULOSKELETAL/RHEUMATOLOGICAL: Denies any joint pain, swelling, or any muscle pain. ENDOCRINE: Denies any polyuria or polydipsia. Past Medical History Past Medical History: Hypertension, Pneumonia Additional Past Medical History / Comment(s): Alcohol withdrawal History of Any Multi-Drug Resistant Organisms: None Reported Past Surgical History: Cholecystectomy, Hysterectomy, Tonsillectomy Past Psychological History: Unable to Obtain Smoking Status: Never smoker Past Alcohol Use History: Heavy Past Drug Use History: None Reported - Past Family History Mother Family Medical History: Dementia Sister(s) Family Medical History: Cancer Brother(s) Family Medical History: Cancer Medications and Allergies Home Medications Medication Instructions Recorded Confirmed Type Acetaminophen Tab [Tylenol Tab] 1,000 mg PO Q6H PRN 01/30/23 01/30/23 History Omeprazole 20 mg PO DAILY PRN 01/30/23 01/30/23 History Allergies Allergy/AdvReac Type Severity Reaction Status Date / Time fentanyl Allergy Nausea & Verified 01/30/23 15:23 Vomiting hydrocodone [From [place]] Allergy Nausea & Verified 01/30/23 15:23 Vomiting hydromorphone [From Dilaudid] Allergy Nausea & Verified 01/30/23 15:23 Vomiting morphine Allergy Nausea & Verified 01/30/23 15:23 Vomiting oxycodone [From Percocet] Allergy Nausea & Verified 01/30/23 15:23 Vomiting clonazepam [From Klonopin] AdvReac Severe extreme Verified 01/30/23 15:23 drop in Blood pressure prochlorperazine AdvReac Severe Suicidal Verified 01/30/23 15:23 [From Compazine] ideations diphenhydramine AdvReac aggresive Verified 01/30/23 15:23 [From Benadryl] behavior, aggitation Physical Exam Vitals: Vital Signs Temp Pulse Pulse Resp BP BP Pulse Ox 01/30/23 21:45 18 01/30/23 20:27 89 18 150/100 98 01/30/23 20:00 98.5 F 80 18 168/83 94 L 01/30/23 19:44 73 18 167/100 97 01/30/23 19:01 89 18 188/100 01/30/23 17:16 86 18 210/111 98 01/30/23 15:16 80 18 194/110 97 01/30/23 14:08 98.5 F 80 18 186/95 94 L Intake and Output 01/30/23 01/30/23 01/31/23 14:59 22:59 06:59 Other: Voiding Method Toilet Weight 72.575 kg 72.575 kg GENERAL: The patient is alert and oriented x3, not in any acute distress. Well developed, well nourished. HEENT: Pupils are round and equally reacting to light. EOMI. No scleral icterus. No conjunctival pallor. Normocephalic, atraumatic. No pharyngeal erythema. No thyromegaly. CARDIOVASCULAR: S1 and S2 present. No murmurs, rubs, or gallops. PULMONARY: Chest is clear to auscultation, no wheezing or crackles. ABDOMEN: Soft, nontender, nondistended, normoactive bowel sounds. No palpable organomegaly. MUSCULOSKELETAL: No joint swelling or deformity. EXTREMITIES: No cyanosis, clubbing, or pedal edema. NEUROLOGICAL: Gross neurological examination did not reveal any focal deficits. SKIN: No rashes. no petechiae. Results CBC & Chem 7: 01/30/23 14:42 01/30/23 14:42 Labs: Abnormal Lab Results - Last 24 Hours (Table) 01/30/23 01/30/23 01/30/23 Range/Units 14:42 14:42 14:42 WBC 3.1 L (3.8-10.6) k/uL RDW 16.9 H (11.5-15.5) % Plt Count 71 L (150-450) k/uL Sodium 134 L (137-145) mmol/L Potassium 3.2 L (3.5-5.1) mmol/L Chloride 94 L (98-107) mmol/L Glucose 151 H (74-99) mg/dL Total Bilirubin 1.7 H (0.2-1.3) mg/dL AST 130 H (14-36) U/L ALT 98 H (4-34) U/L Troponin I 0.039 H* (0.000-0.034) ng/mL 01/30/23 Range/Units 20:58 WBC (3.8-10.6) k/uL RDW (11.5-15.5) % Plt Count (150-450) k/uL Sodium (137-145) mmol/L Potassium (3.5-5.1) mmol/L Chloride (98-107) mmol/L Glucose (74-99) mg/dL Total Bilirubin (0.2-1.3) mg/dL AST (14-36) U/L ALT (4-34) U/L Troponin I 0.046 H* (0.000-0.034) ng/mL Thrombosis Risk Factor Assmnt - Choose All That Apply Each Factor Represents 1 point: Obesity (BMI >25) Each Risk Factor Represents 2 Points: Age 61-74 years Thrombosis Risk Factor Assessment Total Risk Factor Score: 3 Thrombosis Risk Factor Assessment Level: Moderate Risk Assessment and Plan Assessment: Dizziness with presyncope with elevated troponin Difficulty ambulating, with recent history of fall, could be related to her peripheral neuropathy versus dizziness, versus substance abuse Alcoholic abuse Alcoholic hepatitis with mildly elevated bilirubin Bicytopenia most likely secondary to alcohol effect. Plan: Start metoprolol Continue with aspirin 81 mg Cardiology consult Neurology consult Start CIWA protocol and thiamine check vitamin B12 and folate Labs and medication were reviewed.. Continue same treatment. Continue with symptomatic treatment. Resume home medication. Monitor labs and vitals. DVT and GI prophylaxis. Further recommendations as per clinical course of the patient DVT prophylaxis: Subcutaneous heparin GI Prophylaxis: Pepcid PT/OT: Pending Prognosis is guarded
[2023-01-31] MEDS ORDERED: DEXTROSE 5%-0.9% NACL 1,000 ML IV SCH (08:45)
[2023-01-31] MEDS ORDERED: FAMOTIDINE 20 MG/2 ML VIAL IV SCH (09:00)
[2023-01-31] MEDS ORDERED: ASPIRIN 81 MG PO SCH (09:00)
--- NOTE | 2023-01-31 09:11 | CT ---
EXAMINATION TYPE: CT brain wo con for TPA CT DLP: 1070.6 mGycm, Automated exposure control for dose reduction was used. DATE OF EXAM: 01/31/2023 9:05 AM COMPARISON: CT brain 01/30/2023 CLINICAL INDICATION:Female, 67 years old with history of Neuro deficit, acute, stroke suspected, CODE STROKE, Double vision with increased weakness on left side TECHNIQUE: Brain: Multiple axial CT images of the brain were obtained without IV contrast. Coronal and sagittal reformats reviewed. FINDINGS: Brain: Extra-axial spaces: No abnormal extra-axial fluid collections. Ventricular system: Within normal limits Cerebral parenchyma: No acute intraparenchymal hemorrhage or mass effect. The villavicencio-white junction is well differentiated. Scattered hypoattenuating areas are seen within the white matter. Cerebellum: Unremarkable. Mass effect: No evidence of midline shift. Intracranial vasculature: unremarkable Soft tissues: Normal. Calvarium/osseous structures: No depressed skull fracture. Paranasal sinuses and mastoid air cells: Near complete opacification of the right maxillary sinus. Th e mastoid air cells are clear. Visualized orbits: Orbital contents are intact. IMPRESSION: 1. No acute intracranial process or significant change from prior. 2. Nonspecific white matter changes, likely secondary to chronic small vessel ischemic disease. 3. Right maxillary sinus disease redemonstrated.
[2023-01-31] MEDS: METOPROLOL TARTRATE 25 MG TAB PO SCH ×2 (09:23→21:14)
[2023-01-31] MEDS: HEPARIN SODIUM,PORCINE/PF 5,000 UNIT/0.5 ML SYRINGE SQ SCH ×2 (09:23→21:14)
[2023-01-31] MEDS: THIAMINE 100 MG/ML 2 ML VIAL IVP SCH ×2 (09:26→21:22)
[2023-01-31] MEDS ORDERED: ASPIRIN 81 MG PO STA (09:33)
[2023-01-31 11:03] LABS: Anisocytosis Slight; Basophils % (A) 1 %; Eosinophils # (A) 0.1 k/uL (0-0.7); Eosinophils % (A) 3 %; HCT 39.3 % (34.0-46.0); HGB 14.1 gm/dL (11.4-16.0); Lymphocytes % (A) 39 %; MCH 34.7 pg (25.0-35.0); MCHC 35.8 g/dL (31.0-37.0); MCV 96.9 fL (80.0-100.0); Macrocytosis Slight; Mean Platelet Volume 11.8; Monocytes # (A) 0.2 k/uL (0-1.0); Monocytes % (A) 10 %; Neutrophils # (A) 1.1 k/uL (1.3-7.7); Neutrophils % (A) 44 %; RBC 4.06 m/uL (3.80-5.40); RDW 17.1 % (11.5-15.5); WBC 2.5 k/uL (3.8-10.6)
[2023-01-31 11:08] LABS: Platelet Count 64 k/uL (150-450)
--- NOTE | 2023-01-31 12:01 | P.CNNES ---
History of Present Illness Consult date: 01/31/23 Requesting physician: Vita Moser Reason for Consult: Dizziness History of Present Illness: This is a 67-year-old woman history of hypertension, alcohol abuse presented emergency department for dizziness. She stated that it happened yesterday and it seems that when she went to the get the mail from the mailbox she felt really felt unsteady felt like she was stumbling. When she got back inside home she felt was stumbling and the head to grab onto the boateng furniture and she felt dizzy herself denies any nausea vomiting. Denies any visual disturbance. She stated the last drink she had was about 2 weeks ago. She denies any history of stroke or TIAs. She was giving inconsistent history initially she told me that her diplopia started around 6:00 AM today but it seems that she notified the ED that she was having visual disturbance changes of the right eye that been occurring intermittently. She also stated initially she had the left leg weakness that started around 6:00 in the morning and prior to that she was normal but night later she said no started around 3:00 in the morning and she was doing well prior to the 3:00. She denies being on any antiplatelets. Denies history of any atrial fibrillation flutter. As a result a code stroke was activated and had a CT around 9:05 AM which is reported as no acute intracranial processes or significant change from prior. Nonspecific white matter changes likely secondary due to chronic small vessel ischemic disease. Right maxillary sinus disease redemonstrated. Per the nurse her blood pressure at that time was 219/107. According to the nurse, stroke attending and per nurse No IV tpa. She could not tell me who was the stroke attending. I believe No IV tpa since patient is outside window and the risk outweigh the benefit. Some of the workup during his hospital visit consisted of AST: 130, ALT 98. Plan initially is 0.039 most recent is 0.036 Potassium 3.[address] angiography of the head and neck was reported as no evidence of dissection of cervical internal carotid artery or vertebral artery or any evidence of significant stenosis of the carotid bifurcation. No evidence of her cranial high-grade stenosis or intracranial aneurysm. EKG is reported as sinus rhythm. Normal EKG. Review of Systems Review of system: The 12 point system was reviewed and apparent positive and negative per HPI. Past Medical History Past Medical History: Hypertension, Pneumonia Additional Past Medical History / Comment(s): Alcohol withdrawal History of Any Multi-Drug Resistant Organisms: None Reported Past Surgical History: Cholecystectomy, Hysterectomy, Tonsillectomy Past Psychological History: Unable to Obtain Smoking Status: Never smoker Past Alcohol Use History: Heavy Past Drug Use History: None Reported - Past Family History Mother Family Medical History: Dementia Sister(s) Family Medical History: Cancer Brother(s) Family Medical History: Cancer Medications and Allergies Home Medications Medication Instructions Recorded Confirmed Type Acetaminophen Tab [Tylenol Tab] 1,000 mg PO Q6H PRN 01/30/23 01/30/23 History Omeprazole 20 mg PO DAILY PRN 01/30/23 01/30/23 History Allergies Allergy/AdvReac Type Severity Reaction Status Date / Time fentanyl Allergy Nausea & Verified 01/30/23 15:23 Vomiting hydrocodone [From [place]] Allergy Nausea & Verified 01/30/23 15:23 Vomiting hydromorphone [From Dilaudid] Allergy Nausea & Verified 01/30/23 15:23 Vomiting morphine Allergy Nausea & Verified 01/30/23 15:23 Vomiting oxycodone [From Percocet] Allergy Nausea & Verified 01/30/23 15:23 Vomiting clonazepam [From Klonopin] AdvReac Severe extreme Verified 01/30/23 15:23 drop in Blood pressure prochlorperazine AdvReac Severe Suicidal Verified 01/30/23 15:23 [From Compazine] ideations diphenhydramine AdvReac aggresive Verified 01/30/23 15:23 [From Benadryl] behavior, aggitation Physical Examination - Vital Signs Vital Signs: Vital Signs Temp Pulse Pulse Resp BP BP Pulse Ox 01/31/23 08:00 98.2 F 78 18 219/107 96 01/31/23 04:00 98.4 F 85 18 161/85 96 01/31/23 01:54 18 01/31/23 00:00 98.6 F 83 18 162/80 97 01/30/23 21:45 18 01/30/23 20:27 89 18 150/100 98 01/30/23 20:00 98.5 F 80 18 168/83 94 L 01/30/23 19:44 73 18 167/100 97 01/30/23 19:01 89 18 188/100 01/30/23 17:16 86 18 210/111 98 01/30/23 15:16 80 18 194/110 97 01/30/23 14:08 98.5 F 80 18 186/95 94 L Intake and Output 01/30/23 01/31/23 01/31/23 22:59 06:59 14:59 Other: Voiding Method Toilet Toilet # Voids 1 Weight 72.575 kg GENERAL: The patient is lying in bed and is not in acute distress. CHEST: The heart rate is regular rate rhythm. No murmurs to auscultation. LUNG: Clear to auscultation bilaterally no wheezing noted throughout. Not labo red breathing. ABDOMEN/GI: Bowel sounds present in all 4 quadrants. No tenderness to palpation throughout. NEUROLOGICAL: Higher mental function: The patient is awake, alert, oriented to self, place and time. Patient is following commands. No aphasia and no neglect. Cranial nerves: The pupils are round, equal and reactive to light and accommodation. Visual [place] are full to confrontation throughout. Extraocular movement is intact no nystagmus is noted. Facial sensation is normal to touch t hroughout. The facial strength is normal throughout. Hearing is normal bilaterally to hand rub. Tongue is midline and moved [id number] without any difficulty. No dysarthria is noted. Shoulder shrug is normal bilaterally. Motor: The strength is 5 over 5 throughout upper and right lowers is 5/5. Left lower is 3-4. Normal tone and bulk. Cerebellum: Normal finger to nose bilaterally. Sensation: Sensation is normal to touch throughout. Reflexes (right/left): 2+ throughout. Plantars are mute bilaterally. Results - Laboratory Findings CBC and BMP: 01/31/23 09:31 01/30/23 14:42 Abnormal Lab Findings: Abnormal Labs 01/30/23 01/30/23 01/30/23 14:42 14:42 14:42 WBC 3.1 L RDW 16.9 H Plt Count 71 L Neutrophils # Sodium 134 L Potassium 3.2 L Chloride 94 L Glucose 151 H Total Bilirubin 1.7 H AST 130 H ALT 98 H Troponin I 0.039 H* 01/30/23 01/31/23 01/31/23 20:58 01:17 09:31 WBC 2.5 L RDW 17.1 H Plt Count 64 L Neutrophils # 1.1 L Sodium Potassium Chloride Glucose Total Bilirubin AST ALT Troponin I 0.046 H* 0.036 H* Assessment and Plan Assessment: This is a 67-year-old woman who presented because of dizziness, unsteady gait with visual disturbance. At 3:00AM today (12/31/22) it seems that she had left leg weakness and diplopia Probable acute ischemic stroke. No IV TPA since outside the window Escalated hypertension Slight hypokalemia History of hypertension Alcohol abuse last drink according to patient was 2 weeks ago Plan: I ordered MRI the brain without stat She started on aspirin 325 mg daily. His MRI confirms a stroke then we'll start her on dual antiplatelet of aspirin and Plavix I also started the patient on Lipitor 40 mg daily at bedtime for secondary stroke prophylaxis 2-D echo is ordered. I also ordered lipid panel Vitamin B12, folate, hemoglobin A1c urine drug screen thiamine level is ordered by the primary team is pending I consulted that PT and OT Neuro checks every 4 hours Cardiac monitoring Patient is currently on thiamine 100 mg daily We'll defer the rest of the medical measure the primary team For DVT prophylaxis patient is on subcu heparin 5000 units every 12 hours The plan was discussed with the patient in the primary team. Thank you for the consultation Time with Patient: Greater than 30
--- NOTE | 2023-01-31 12:19 | CA ---
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 18 - 58 / 22 - 52 cm??? M-MODE Aortic Root Diameter MM 3.1 cm LA Systolic Diameter MM 3.7 cm LA Ao Ratio MM 1.2 AV Cusp Separation MM 2.0 cm DOPPLER AV Peak Velocity 98.8 cm/s AV Peak Gradient 3.9 mmHg AV Mean Velocity 72.3 cm/s AV Mean Gradient 2.3 mmHg AV Velocity Time Integral 21.2 cm LVOT Peak Velocity 92.5 cm/s LVOT Peak Gradient 3.4 mmHg LVOT Velocity Time Integral 21.0 cm MV Area PHT 3.9 cm??? Mitral E Point Velocity 72.1 cm/s Mitral A Point Velocity 98.2 cm/s Mitral E to A Ratio 0.7 MV Deceleration Time 194.8 ms MV E' Velocity 5.1 cm/s Mitral E to MV E' Ratio 14.1 TR Peak Velocity 181.2 cm/s TR Peak Gradient 13.1 mmHg Right Ventricular Systolic Press 18.1 mmHg FINDINGS Left Ventricle Mildly increased left ventricular wall thickness. Left ventricular cavity size normal. Normal left ventricular systolic function with no obvious regional wall motion abnormalities. Left ventricular ejection fraction is estimated at 55%. Right Ventricle Normal right ventricular size and function. Right ventricular systolic pressure within normal limits. Right Atrium Normal right atrial size. Left Atrium Normal left atrial size. Mitral Valve Structurally normal mitral valve. No evidence for mitral valve prolapse. Aortic Valve No aortic valve stenosis or regurgitation. Tricuspid Valve Structurally normal tricuspid valve. Mild tricuspid regurgitation. Pulmonic Valve Structurally normal pulmonic valve. Trace pulmonic regurgitation. Pericardium Mild pericardial effusion. Aorta Normal size aortic root and proximal ascending aorta. CONCLUSIONS Left ventricular ejection fraction 55% Mild increased left ventricular THICKNESS Mild tricuspid regurgitation Mild pericardial effusion Previewed by: Dr. Marcos Resendez DO (Electronically Signed) Final Date: 31 January 2023 12:18
[2023-01-31 12:59] LABS: ALT 117 U/L (4-34); AST 143 U/L (14-36); African American GFR (CKD) >90 (>60 ml/min/1.73 sqM); Alkaline Phosphatase 49 U/L (38-126); Anion Gap 9 mmol/L; Bilirubin, Delta 0.5 mg/dL (0.0-0.2); Blood Urea Nitrogen 12 mg/dL (7-17); Calcium 8.2 mg/dL (8.4-10.2); Carbon Dioxide 32 mmol/L (22-30); Chloride 99 mmol/L (98-107); Glucose 99 mg/dL (74-99); Non-African American GFR(CKD) >90 (>60 ml/min/1.73 sqM); Sodium 140 mmol/L (137-145); Total Bilirubin 1.5 mg/dL (0.2-1.3); Total Protein 6.9 g/dL (6.3-8.2)
--- NOTE | 2023-01-31 13:19 | MR ---
EXAMINATION TYPE: MR brain wo con DATE OF EXAM: 01/31/2023 1:01 PM COMPARISON: CT brain 01/31/2023. CLINICAL INDICATION:Female, 67 years old with history of leg weakness. stroke; Dizziness, leg weaknes s. TECHNIQUE: Multi planar, multi sequence imaging was performed through the brain including: T1, T2, In version recovery, Diffusion weighted imaging, and gradient echo imaging. No gadolinium was given. FINDINGS: The villavicencio-white junctions, ventricular system, and cisterns appear unremarkable. Scattered foci of hi gh T2 signal intensity are seen within the periventricular white matter. Midline structures show no a bnormality. Diffusion-weighted imaging shows no evidence of restricted diffusion. The susceptibility weighted images do not reveal any evidence for micro-hemorrhage. The bone marrow signal is within normal limits. Paranasal sinuses and mastoid air cells: Paranasal sinus disease most pronounced in the right maxilla ry sinus. High T2 signal within the mastoid air cells. Visualized orbits: Orbital contents are intact. IMPRESSION: 1. No evidence of intracranial mass or acute/subacute infarct. 2. Nonspecific white matter changes, likely secondary to small vessel ischemic disease. 3. Trace bilateral mastoid air cell effusions left greater than right. 4. Right maxillary sinus paranasal sinus disease.
[2023-01-31] MEDS ORDERED: Potassium Replacement Protocol 1 EACH MISC MISCELLANE PRN ×2 (13:28→16:13)
[2023-01-31] MEDS ORDERED: Magnesium Replacement Protocol 1 EACH MISC MISCELLANE PRN (13:28)
--- NOTE | 2023-01-31 13:29 | P.PN ---
Subjective This is a pleasant 67 years old female with past medical history of alcohol abuse, she drinks alcohol and binge pattern, hypertension currently not on medication. Presents because of difficulty ambulating, she was trying to get her mail today when she felt stumbling and weakness in her legs, she could manage to move around but then came to emergency room Also she is complaining of from tingling in her right leg. About 5 weeks ago she fell backwards and she did the back of her right shoulder blade and she is been having pain since then but it is healing as per patient She feels little dizzy and headache but she denies specific weakness or nu mbness. She describes her dizziness is like presyncope rather than vertigo. She has some blurriness in his right eye but is gone now. She denies any chest pain or dyspnea or coughing. No change in urine or bowel habits, no abdominal pain diarrhea or vomiting or dysuria. However last Thursday she had some vomiting and diarrhea which is resolved. She misses her who but she denies overt depression or suicidal ideation She denies smoking or illicit drugs however she drinks alcohol she drinks 1 pint as binge style. Patient's vitals are stable, blood pressure is slightly elevated showing mild leukopenia and thrombocytopenia with RBC 3.1 and platelet count 71,000. Hemoglobin normal INR is 1.1. Potassium 3.2, resolved BMP is unremarkable. Bilirubin slightly elevated at 1.7 and AST 1:30 and ALT 98. Troponin is elevated 0.03 and 0.04. TSH is normal 1.6. Chest x-ray: No acute process CAT angio of the head and neck: No evidence of dissection of the cervical internal carotid arteries or vertebral arteries or any evidence of significant stenosis at carotid bifurcations. No evidence of intracranial stenosis or aneurysm CT of the brain: No acute intracranial process 01/31/2023 Patient was seen and examined by me at bedside this morning, she was fully awake and oriented but she was complaining from left leg weakness which started 3 AM in the morning, also she started complaining of from double vision at 6:30 in the morning, because of this we activated prior stroke, repeat CAT scan was negative. We increased her dose of aspirin to 325 mg. Risk including but not l imited to bleeding is explained for the patient and she verbalized understanding and acceptance Case was discussed with the neurology service, MRI of the brain, echocardiogram is pending Also patient is under a lot of stress and she might benefit from psychiatric evaluation for possible conversion disorder versus others. In the meantime she remains on thiamine. Clinically other than that she is doing well with no chest pain or dyspnea, no GI or urinary symptoms. She has mild bicytopenia and mild transaminitis secondary to alcohol affect Objective - Vital Signs Vital signs: Vital Signs Temp 98.2 F 01/31/23 08:00 Pulse 78 01/31/23 08:00 Resp 18 01/31/23 08:00 BP 219/107 01/31/23 08:00 Pulse Ox 96 01/31/23 08:00 FiO2 Intake & Output 01/30/23 01/31/23 01/31/23 18:59 06:59 18:59 Weight 72.575 kg Other: Voiding Method Toilet # Voids 1 - Exam GENERAL: The patient is alert and oriented x3, not in any acute distress. Well developed, well nourished. HEENT: Pupils are round and equally reacting to light. EOMI. No scleral icterus. No conjunctival pallor. Normocephalic, atraumatic. No pharyngeal erythema. No thyromegaly. CARDIOVASCULAR: S1 and S2 present. No murmurs, rubs, or gallops. PULMONARY: Chest is clear to auscultation, no wheezing or crackles. ABDOMEN: Soft, nontender, nondistended, normoactive bowel sounds. No palpable organomegaly. MUSCULOSKELETAL: No joint swelling or deformity. EXTREMITIES: No cyanosis, clubbing, or pedal edema. -NEUROLOGICAL: Cranial nerves are grossly intact, left leg is weaker than yesterday and weaker than the right side about 4/5. Sensation is intact. SKIN: No rashes. no petechiae. - Labs CBC & Chem 7: 01/31/23 09:31 01/31/23 12:08 Labs: Abnormal Lab Results - Last 24 Hours (Table) 01/30/23 01/30/23 01/30/23 Range/Units 14:42 14:42 14:42 WBC 3.1 L (3.8-10.6) k/uL RDW 16.9 H (11.5-15.5) % Plt Count 71 L (150-450) k/uL Sodium 134 L (137-145) mmol/L Potassium 3.2 L (3.5-5.1) mmol/L Chloride 94 L (98-107) mmol/L Glucose 151 H (74-99) mg/dL Total Bilirubin 1.7 H (0.2-1.3) mg/dL AST 130 H (14-36) U/L ALT 98 H (4-34) U/L Troponin I 0.039 H* (0.000-0.034) ng/mL 01/30/23 01/31/23 Range/Units 20:58 01:17 WBC (3.8-10.6) k/uL RDW (11.5-15.5) % Plt Count (150-450) k/uL Sodium (137-145) mmol/L Potassium (3.5-5.1) mmol/L Chloride (98-107) mmol/L Glucose (74-99) mg/dL Total Bilirubin (0.2-1.3) mg/dL AST (14-36) U/L ALT (4-34) U/L Troponin I 0.046 H* 0.036 H* (0.000-0.034) ng/mL Assessment and Plan Assessment: Dizziness with presyncope with elevated troponin Patient reports weakness in the left leg and blurred/double vision, rule out stroke. 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 Plan: Start metoprolol. Discontinue IV fluid and to start hydralazine 50 mg twice a day Continue with aspirin, with increased dose to 325 mg daily, risks and benefits are explained for the patient Cardiology consult Neurology consult Start CIWA protocol and thiamine check vitamin B12 and folate Labs and medication were reviewed.. Continue same treatment. Continue with symptomatic treatment. Resume home medication. Monitor labs and vitals. DVT and GI prophylaxis. Further recommendations as per clinical course of the patient DVT prophylaxis: Subcutaneous heparin GI Prophylaxis: Pepcid PT/OT: Pending Prognosis is guarded
[2023-01-31 14:27] VITALS: BMI 26.6
--- NOTE | 2023-01-31 15:30 | P.CRDCN ---
History of Present Illness Consult date: 01/31/23 Consult reason: other (elevated trop, dizziness) Chief complaint: dizziness History of present illness: HISTORY OF PRESENT ILLNESS: Patient is a pleasant 67-year-old female with significant past medical history of hypertension and alcohol abuse who presented to the emergency department with complaints of dizziness. She has not followed with a fitter hand in the past. Cardiology was consulted for elevated troponins. She states that she has been off of her antihypertensive medication for years. She does identify is an alcoholic, states she has episodes of binge drinking and will drink a fifth in 3 days. Today she was feeling dizzy and having difficulty walking, she felt off balance. She denies any unilateral weakness. Denies any chest pain, pressure, shortness of breath. Blood pressure was significantly elevated in the ER 200s/100s. She is feeling a little better today however still having dizzy ep isodes. She denies any recent heart workup. Labs reviewed: Troponin 0.039, 0.046, 0.036; platelets 71, TSH normal, sodium 134, potassium 3.2, creatinine 0.76, elevated liver function tests. EKG shows sinus rhythm with normal axis, no significant ST or T wave changes. Code stroke was then activated on patient for increasing left-sided weakness. MRI brain was done shows no acute infarct. Blood pressure was elevated again in the 200s over 100s, however currently it is in the 140s over 80s. REVIEW OF SYSTEMS: No fever or chills. No cough or expectoration. No diaphoresis. Patient denies headache. Reports dizziness, double vision. Patient denies any stomach discomfort. No nausea, vomiting. No hematochezia. No hematemesis. Denies any black stools or blood in stools. Denies dysuria or mark turia. No muscle weakness or numbness. No chest pain or pressure. PHYSICAL EXAMINATION: This is a 67-year-old female in no apparent distress at the time of my examination. HEENT: Head is atraumatic, normocephalic. Pupils are equal, round. Sclerae anicteric. Conjunctivae are clear. Mucous membranes of the mouth are moist. Neck is supple. There is no jugular venous distention. No carotid bruit is heard. CHEST EXAMINATION: Lungs are clear to auscultation. No chest wall tenderness is noted on palpation or with deep breathing. HEART EXAMINATION: Heart regular rate and rhythm. S1, S2 heard. No murmurs, gallops or rub. ABDOMEN: Soft, nontender. Bowel sounds are heard. EXTREMITIES: 2+ peripheral pulses with no evidence of peripheral edema and no calf tenderness noted. NEUROLOGIC EXAMINATION: Patient is awake, alert and oriented x3. IMPRESSION AND PLAN: Hypertension Alcohol abuse Thrombocytopenia Elevated troponin Hypokalemia PLAN: Echocardiogram was ordered and reveals EF 55%, mild LVH, mild tricuspid regurgitation. Recommend aspirin 81 mg daily as she able to tolerate. Recommend blood pressure control. Will follow up. I am dictating on behalf of Dr. Marcos Resendez's history/physical and assessment/plan. Past Medical History Past Medical History: Hypertension, Pneumonia Additional Past Medical History / Comment(s): Alcohol withdrawal History of Any Multi-Drug Resistant Organisms: None Reported Past Surgical History: Cholecystectomy, Hysterectomy, Tonsillectomy Past Psychological History: Unable to Obtain Smoking Status: Never smoker Past Alcohol Use History: Heavy Past Drug Use History: None Reported - Past Family History Mother Family Medical History: Dementia Sister(s) Family Medical History: Cancer Brother(s) Family Medical History: Cancer Medications and Allergies Home Medications Medication Instructions Recorded Confirmed Type Acetaminophen Tab [Tylenol Tab] 1,000 mg PO Q6H PRN 01/30/23 01/30/23 History Omeprazole 20 mg PO DAILY PRN 01/30/23 01/30/23 History Allergies Allergy/AdvReac Type Severity Reaction Status Date / Time fentanyl Allergy Nausea & Verified 01/30/23 15:23 Vomiting hydrocodone [From [place]] Allergy Nausea & Verified 01/30/23 15:23 Vomiting hydromorphone [From Dilaudid] Allergy Nausea & Verified 01/30/23 15:23 Vomiting morphine Allergy Nausea & Verified 01/30/23 15:23 Vomiting oxycodone [From Percocet] Allergy Nausea & Verified 01/30/23 15:23 Vomiting clonazepam [From Klonopin] AdvReac Severe extreme Verified 01/30/23 15:23 drop in Blood pressure prochlorperazine AdvReac Severe Suicidal Verified 01/30/23 15:23 [From Compazine] ideations diphenhydramine AdvReac aggresive Verified 01/30/23 15:23 [From Benadryl] behavior, aggitation Physical Exam Vitals: Vital Signs Temp Pulse Pulse Resp BP BP Pulse Ox 01/31/23 04:00 98.4 F 85 18 161/85 96 01/31/23 01:54 18 01/31/23 00:00 98.6 F 83 18 162/80 97 01/30/23 21:45 18 01/30/23 20:27 89 18 150/100 98 01/30/23 20:00 98.5 F 80 18 168/83 94 L 01/30/23 19:44 73 18 167/100 97 01/30/23 19:01 89 18 188/100 01/30/23 17:16 86 18 210/111 98 01/30/23 15:16 80 18 194/110 97 01/30/23 14:08 98.5 F 80 18 186/95 94 L Intake and Output 01/30/23 01/31/23 01/31/23 22:59 06:59 14:59 Other: Voiding Method Toilet Toilet # Voids 1 Weight 72.575 kg Results 01/31/23 09:31 01/31/23 12:08 Cardiac Enzymes 01/30/23 01/30/23 01/30/23 Range/Units 14:42 14:42 20:58 AST 130 H (14-36) U/L Troponin I 0.039 H* 0.046 H* (0.000-0.034) ng/mL 01/31/23 Range/Units 01:17 AST (14-36) U/L Troponin I 0.036 H* (0.000-0.034) ng/mL Coagulation 01/30/23 Range/Units 14:42 PT 11.4 (9.0-12.0) sec CBC 01/30/23 Range/Units 14:42 WBC 3.1 L (3.8-10.6) k/uL RBC 4.05 (3.80-5.40) m/uL Hgb 13.7 (11.4-16.0) gm/dL Hct 38.2 (34.0-46.0) % Plt Count 71 L (150-450) k/uL Comprehensive Metabolic Panel 01/30/23 Range/Units 14:42 Sodium 134 L (137-145) mmol/L Potassium 3.2 L (3.5-5.1) mmol/L Chloride 94 L (98-107) mmol/L Carbon Dioxide 29 (22-30) mmol/L BUN 17 (7-17) mg/dL Creatinine 0.76 (0.52-1.04) mg/dL Glucose 151 H (74-99) mg/dL Calcium 8.8 (8.4-10.2) mg/dL AST 130 H (14-36) U/L ALT 98 H (4-34) U/L Alkaline Phosphatase 48 (38-126) U/L Total Protein 7.5 (6.3-8.2) g/dL Albumin 4.6 (3.5-5.0) g/dL Current Medications Generic Name Dose Route Start Last Admin Trade Name Freq PRN Reason Stop Dose Admin Acetaminophen 650 mg 01/30/23 18:08 Acetaminophen Tab 325 Mg Tab PO Q6HR PRN Mild Pain or Fever > 100.5 Aspirin 81 mg 01/31/23 09:00 Aspirin 81 Mg PO DAILY [facility] Famotidine 20 mg 01/31/23 09:00 Famotidine 20 Mg/2 Ml Vial IV Q12HR [facility] Heparin Sodium (Porcine) 5,000 unit 01/31/23 09:00 Heparin Sodium,Porcine/Pf 5,000 Unit/0.5 Ml Syringe SQ Q12HR [facility] Ibuprofen 400 mg 01/30/23 18:08 Ibuprofen 400 Mg Tab PO Q6HR PRN Mild Pain or Fever > 100.5 Ketorolac Tromethamine 15 mg 01/30/23 18:08 Ketorolac 15 Mg/Ml 1 Ml Vial IVP 02/02/23 18:11 Q6HR PRN Moderate Pain (Scale 4 to 6) Metoprolol Tartrate 25 mg 01/31/23 09:00 Metoprolol Tartrate 25 Mg Tab PO BID [facility] Naloxone HCl 0.2 mg 01/30/23 18:08 Naloxone 0.4 Mg/Ml 1 Ml Vial IV Q2M PRN Opioid Reversal Ondansetron HCl 4 mg 01/30/23 18:08 Ondansetron 4 Mg/2 Ml Vial IVP Q8HR PRN Nausea And Vomiting Thiamine HCl 100 mg 01/30/23 21:00 01/30/23 23:32 Thiamine 100 Mg/Ml 2 Ml Vial IVP Not Given BID [facility] Intake and Output 01/30/23 01/31/23 01/31/23 22:59 06:59 14:59 Other: Voiding Method Toilet Toilet # Voids 1 Weight 72.575 kg 01/30/23 14:42 01/30/23 14:42
[2023-01-31] MEDS ORDERED: POTASSIUM CHLORIDE ER 20 MEQ TAB.ER PO ONE (16:13)
[2023-01-31] MEDS: hydrALAZINE HCL 50 MG TAB PO SCH ×2 (16:59→21:22)
[2023-01-31 18:05] LABS: Amorphous Sediment,Urine Occasional /hpf; Appearance,Urine Cloudy (Clear); Bacteria,Urine Rare /hpf; Bilirubin,Urine 1+ (Negative); Blood,Urine Negative (Negative); Color,Urine Yellow; Glucose,Urine (UA) Negative (Negative); Hyaline Casts,Urine 1 /lpf (0-2); Ketones,Urine Trace (Negative); Leukocyte Esterase,Urine Trace (Negative); Mucus,Urine Few /hpf; Nitrite,Urine Negative (Negative); PH, Urine 6.5 (5.0-8.0); Protein,Urine 1+ (Negative); RBC,Urine 2 /hpf (0-5); Specific Gravity,Urine 1.034 (1.001-1.035); Squamous Epithelial Cell,Urine 16 /hpf (0-4); WBC,Urine 11 /hpf (0-5)
[2023-01-31 18:29] LABS: Cocaine Screen,Urine Not Detected (NotDetected); Opiate Screen,Urine Not Detected (NotDetected); Phencyclidine Screen,Urine Not Detected (NotDetected); Urn Cannabinoid Scrn Not Detected (NotDetected)
[2023-01-31 18:30] LABS: Amphetamine Screen,Urine Not Detected (NotDetected); Barbiturate Screen,Urine Not Detected (NotDetected); Benzodiazepines Screen,Urine Detected (NotDetected); Methadone Screen, Urine Not Detected (NotDetected); Oxycodone Screen, Urine Not Detected (NotDetected); Tricyclic Antidepressant,Urine Not Detected (NotDetected)
[2023-01-31] MEDS ORDERED: LORazepam 2 MG/ML INJ IV PRN ×3 (19:52)
[2023-01-31] MEDS ORDERED: ATORVASTATIN 40 MG TAB PO SCH (21:00)
[2023-01-31] MEDS: FAMOTIDINE 20 MG TAB PO SCH (21:13)
[2023-01-31] MEDS: diazePAM 5 MG TAB PO SCH (21:13)
[2023-02-01 08:22] LABS: Chol/HDL Ratio 2.75 Ratio; LDL Cholesterol,Calculated 112.4 mg/dL (0.0-131.0); VLDL Calculation 17.36 mg/dL (5.00-40.00)
[2023-02-01] MEDS: FAMOTIDINE 20 MG TAB PO SCH ×2 (08:58→21:13)
[2023-02-01] MEDS: hydrALAZINE HCL 50 MG TAB PO SCH ×2 (08:58→21:13)
[2023-02-01] MEDS: THIAMINE 100 MG/ML 2 ML VIAL IVP SCH ×2 (08:58→21:13)
[2023-02-01] MEDS: METOPROLOL TARTRATE 25 MG TAB PO SCH ×2 (08:58→21:13)
[2023-02-01] MEDS: diazePAM 5 MG TAB PO SCH ×3 (08:58→21:13)
[2023-02-01] MEDS: HEPARIN SODIUM,PORCINE/PF 5,000 UNIT/0.5 ML SYRINGE SQ SCH ×2 (08:59→21:13)
[2023-02-01] MEDS ORDERED: ASPIRIN 325 MG TAB PO SCH (09:00)
[2023-02-01 10:09] LABS: African American GFR (CKD) >90 (>60 ml/min/1.73 sqM); Anion Gap 14 mmol/L; Blood Urea Nitrogen 14 mg/dL (7-17); Carbon Dioxide 25 mmol/L (22-30); Chloride 100 mmol/L (98-107); Glucose 106 mg/dL (74-99); Magnesium 1.2 mg/dL (1.6-2.3); Non-African American GFR(CKD) 83 (>60 ml/min/1.73 sqM); Potassium 3.6 mmol/L (3.5-5.1); Sodium 139 mmol/L (137-145)
[2023-02-01 10:10] LABS: Anisocytosis Slight; Basophils % (A) 1 %; Eosinophils # (A) 0.2 k/uL (0-0.7); Eosinophils % (A) 4 %; HCT 42.4 % (34.0-46.0); HGB 14.3 gm/dL (11.4-16.0); Lymphocytes # (A) 1.5 k/uL (1.0-4.8); Lymphocytes % (A) 33 %; MCH 33.4 pg (25.0-35.0); MCHC 33.6 g/dL (31.0-37.0); MCV 99.3 fL (80.0-100.0); Macrocytosis Slight; Mean Platelet Volume 8.5; Monocytes # (A) 0.6 k/uL (0-1.0); Monocytes % (A) 13 %; Neutrophils % (A) 46 %; RBC 4.27 m/uL (3.80-5.40); RDW 16.7 % (11.5-15.5); WBC 4.4 k/uL (3.8-10.6)
[2023-02-01 10:20] LABS: Platelet Count 143 k/uL (150-450)
--- NOTE | 2023-02-01 13:08 | P.PN ---
Subjective Progress Note Date: 02/01/23 The patient is seen at bedside and feels much better. Denies of further weakness or numbness. She notified the nurse she might have be inflicting the stroke-like symptoms yesterday. She feels she is under a lot of stress. She notified nurse her last drink was 1 weeks ago. Objective - Vital Signs Vital signs: Vital Signs Temp 97.7 F 02/01/23 08:00 Pulse 78 02/01/23 08:00 Resp 18 02/01/23 08:00 BP 171/93 02/01/23 08:00 Pulse Ox 97 02/01/23 08:00 FiO2 Intake & Output 01/31/23 02/01/23 02/01/23 18:59 06:59 18:59 Intake Total 1378 Output Total 2 Balance -2 1378 Weight 72.575 kg Intake: Oral 1378 Output: Stool 2 Other: Voiding Method Toilet # Voids 2 2 - Exam GENERAL: The patient is lying in bed and is not in acute distress. NEUROLOGICAL: Higher mental function: The patient is awake, alert, oriented to self, place and time. Patient is following commands. No aphasia and no neglect. Cranial nerves: The pupils are round, equal and reactive to light and accommodation. Visual [place] are full to confrontation throughout. Extraocular movement is intact no nystagmus is noted. Facial sensation is normal to touch throughout. The facial strength is normal throughout. Hearing is normal bilaterally to hand rub. Tongue is midline and moved [id number] without any difficulty. No dysarthria is noted. Shoulder shrug is normal bilaterally. Motor: The strength is 5 over 5 throughout. Normal tone and bulk. Cerebellum: Normal finger to nose bilaterally. Sensation: Sensation is normal to touch throughout. Plantars are downgoing bilaterally. Some of the workup during his hospital visit consisted of AST: 130, ALT 98. Lipid panel is triglyceride 86, cholesterol 204, LDLs 112 and HDL 74. Folate is 11.6 Vitamin B12 651 TSH is 1.680. Potassium 3.[address] angiography of the head and neck was reported as no evidence of dissection of cervical internal carotid artery or vertebral artery or any evidence of significant stenosis of the carotid bifurcation. No evidence of her cranial high-grade stenosis or intracranial aneurysm. EKG is reported as sinus rhythm. Normal EKG. MR the brain is reported no evidence of intracranial mass or acute/subacute infarct. Nonspecific white matter changes, likely secondary to small vessel ischemic disease. Trace bilateral mastoid cell effusion left greater than right. Right maxillary sinus. Nasal sinus disease. I personally reviewed the MRI and agree that there is no acute or subacute ischemic stroke. 2-D echo was reported as left ventricle ejection fraction 55%. Mild increased left ventricle thickness. Mild tricuspid regurgitation. - Labs CBC & Chem 7: 02/01/23 09:38 02/01/23 09:38 Labs: Abnormal Lab Results - Last 24 Hours (Table) 01/31/23 01/31/23 02/01/23 Range/Units 12:08 17:31 09:38 RDW 16.7 H (11.5-15.5) % Plt Count 143 L D (150-450) k/uL Potassium 3.0 L (3.5-5.1) mmol/L Carbon Dioxide 32 H (22-30) mmol/L Glucose (74-99) mg/dL Calcium 8.2 L (8.4-10.2) mg/dL Magnesium (1.6-2.3) mg/dL Total Bilirubin 1.5 H (0.2-1.3) mg/dL Delta Bilirubin 0.5 H (0.0-0.2) mg/dL AST 143 H (14-36) U/L ALT 117 H (4-34) U/L Cholesterol 204.00 H (0.00-200.00) mg/dL HDL Cholesterol 74.20 H (40.00-60.00) mg/dL Urine Appearance Cloudy H (Clear) Urine Protein 1+ H (Negative) Urine Ketones Trace H (Negative) Urine Bilirubin 1+ H (Negative) Ur Leukocyte Esterase Trace H (Negative) Urine WBC 11 H (0-5) /hpf Ur Squamous Epith Cells 16 H (0-4) /hpf Amorphous Sediment Occasional H (None) /hpf Urine Bacteria Rare H (None) /hpf Urine Mucus Few H (None) /hpf U Benzodiazepines Scrn Detected H (NotDetected) 02/01/23 Range/Units 09:38 RDW (11.5-15.5) % Plt Count (150-450) k/uL Potassium (3.5-5.1) mmol/L Carbon Dioxide (22-30) mmol/L Glucose 106 H (74-99) mg/dL Calcium (8.4-10.2) mg/dL Magnesium 1.2 L (1.6-2.3) mg/dL Total Bilirubin (0.2-1.3) mg/dL Delta Bilirubin (0.0-0.2) mg/dL AST (14-36) U/L ALT (4-34) U/L Cholesterol (0.00-200.00) mg/dL HDL Cholesterol (40.00-60.00) mg/dL Urine Appearance (Clear) Urine Protein (Negative) Urine Ketones (Negative) Urine Bilirubin (Negative) Ur Leukocyte Esterase (Negative) Urine WBC (0-5) /hpf Ur Squamous Epith Cells (0-4) /hpf Amorphous Sediment (None) /hpf Urine Bacteria (None) /hpf Urine Mucus (None) /hpf U Benzodiazepines Scrn (NotDetected) Assessment and Plan Assessment: This is a 67-year-old woman who presented because of dizziness, unsteady gait with visual disturbance. At 3:00AM today (12/31/22) it seems that she had left leg weakness and diplopia Her episode of dizziness, unsteady gait and left leg weakness: Seems more non-functional especially with severe stress. Her MRI Brain is negative for acute or subacute ischemic stroke. Currently symptoms has resolved Escalated hypertension Slight hypokalemia History of hypertension Alcohol abuse last drink according to patient was 2 weeks ago Plan: I will decrease ASA 325mg daily to 81mg daily (was not on antiplatelets prior to this). No need for dual antiplatelets since felt unlikely stroke. Her MRI Brain is negative. I stopped statin. If patient continues to have fluctuation in symptoms recommend routine EEG. Psychiatry team consulted for her severe underlying stress. PT and OT consulted Neuro checks every 4 hours Cardiac monitoring Patient is currently on thiamine 100 mg daily We'll defer the rest of the medical measure the primary team For DVT prophylaxis patient is on subcu heparin 5000 units every 12 hours The plan was discussed with the patient in the primary team. Dr. Rubio will start neurology service tomorrow A.M. Time with Patient: Less than 30
[2023-02-01] MEDS: MAGNESIUM SULFATE-D5W PMX 1 GM in DEXTROSE/WATER 1 100ML.BAG IVPB SCH ×3 (13:38→16:58)
--- NOTE | 2023-02-01 13:58 | P.PN ---
Subjective Progress Note Date: 02/01/23 HISTORY OF PRESENT ILLNESS: Patient is a pleasant 67-year-old female with significant past medical history of hypertension and alcohol abuse who presented to the emergency department with complaints of dizziness. She has not followed with a quilt sewer in the past. Cardiology was consulted for elevated troponins. She states that she has been off of her antihypertensive medication for years. She does identify is an alcoholic, states she has episodes of binge drinking and will drink a fifth in 3 days. She was feeling dizzy and having difficulty walking, she felt off balance. She denies any unilateral weakness. Denies any chest pain, pressure, shortness of breath. Blood pressure was significantly elevated in the ER 200s/100s. She is feeling a little better today however still having dizzy episodes. She denies any recent heart workup. Labs reviewed: Troponin 0.039, 0.046, 0.036; platelets 71, TSH normal, sodium 134, potassium 3.2, creatinine 0.76, elevated liver function tests. EKG shows sinus rhythm with normal axis, no significant ST or T wave changes. Code stroke was activated 01/31 on patient for increasing left-sided weakness. MRI brain was done shows no acute infarct. Echocardiogram reveals EF 55%, mild LVH, mild tricuspid regurgitation. 02/01 A/Ox3, she reports feeling better today with no new weakness. She denies any chest pain or shortness of breath. Dizziness is better but she has not really been out of bed. Blood pressure is 140-170's overnight. PHYSICAL EXAMINATION: This is a 67-year-old female in no apparent distress at the time of my examination. HEENT: Head is atraumatic, normocephalic. Pupils are equal, round. Sclerae anicteric. Conjunctivae are clear. Mucous membranes of the mouth are moist. Neck is supple. There is no jugular venous distention. No carotid bruit is heard. CHEST EXAMINATION: Lungs are clear to auscultation. No chest wall tenderness is noted on palpation or with deep breathing. HEART EXAMINATION: Heart regular rate and rhythm. S1, S2 heard. No murmurs, gallops or rub. ABDOMEN: Soft, nontender. Bowel sounds are heard. EXTREMITIES: 2+ peripheral pulses with no evidence of peripheral edema and no calf tenderness noted. NEUROLOGIC EXAMINATION: Patient is awake, alert and oriented x3. IMPRESSION AND PLAN: Hypertension Alcohol abuse Thrombocytopenia Elevated troponin Hypokalemia Recommendations: She is doing well. Recommend aspirin 81 mg daily as she able to tolerate. Recommend blood pressure control. Discussed checking blood pressure at home and keeping a log. OK to DC home from cardiology standpoint. Follow up in clinic with Dr. Resendez in 1 week, will consider outpatient stress test. Cardiology to sign off. I am dictating on behalf of Dr. Marcos Resendez's history/physical and assessment/plan. Objective - Vital Signs Vital signs: Vital Signs Temp 97.5 F L 02/01/23 04:00 Pulse 77 02/01/23 04:00 Resp 18 02/01/23 04:00 BP 178/97 02/01/23 04:00 Pulse Ox 95 02/01/23 04:00 FiO2 Intake & Output 01/31/23 02/01/23 02/01/23 18:59 06:59 18:59 Intake Total 898 Output Total 2 Balance -2 898 Weight 72.575 kg Intake: Oral 898 Output: Stool 2 Other: Voiding Method Toilet # Voids 2 2 - Labs CBC & Chem 7: 02/01/23 09:38 02/01/23 09:38 Labs: Abnormal Lab Results - Last 24 Hours (Table) 01/31/23 01/31/23 01/31/23 Range/Units 09:31 12:08 17:31 WBC 2.5 L (3.8-10.6) k/uL RDW 17.1 H (11.5-15.5) % Plt Count 64 L (150-450) k/uL Neutrophils # 1.1 L (1.3-7.7) k/uL Potassium 3.0 L (3.5-5.1) mmol/L Carbon Dioxide 32 H (22-30) mmol/L Calcium 8.2 L (8.4-10.2) mg/dL Total Bilirubin 1.5 H (0.2-1.3) mg/dL Delta Bilirubin 0.5 H (0.0-0.2) mg/dL AST 143 H (14-36) U/L ALT 117 H (4-34) U/L Urine Appearance Cloudy H (Clear) Urine Protein 1+ H (Negative) Urine Ketones Trace H (Negative) Urine Bilirubin 1+ H (Negative) Ur Leukocyte Esterase Trace H (Negative) Urine WBC 11 H (0-5) /hpf Ur Squamous Epith Cells 16 H (0-4) /hpf Amorphous Sediment Occasional H (None) /hpf Urine Bacteria Rare H (None) /hpf Urine Mucus Few H (None) /hpf U Benzodiazepines Scrn Detected H (NotDetected)
[2023-02-01] MEDS: SERTRALINE 25 MG TAB PO SCH (14:49)
--- NOTE | 2023-02-02 02:07 | P.PN ---
Subjective Progress Note Date: 02/01/23 This is a pleasant 67 years old female with past medical history of alcohol abuse, she drinks alcohol and binge pattern, hypertension currently not on medication. Presents because of difficulty ambulating, she was trying to get her mail today when she felt stumbling and weakness in her legs, she could manage to move around but then came to emergency room Also she is complaining of from tingling in her right leg. About 5 weeks ago she fell backwards and she did the back of her right shoulder blade and she is been having pain since then but it is healing as per patient She feels little dizzy and headache but she denies specific weakness or numbness. She describes her dizziness is like presyncope rather than vertigo. She has some blurriness in his right eye but is gone now. She denies any chest pain or dyspnea or coughing. No change in urine or bowel habits, no abdominal pain diarrhea or vomiting or dysuria. However last Thursday she had some vomiting and diarrhea which is resolved. She misses her who but she denies overt depression or suicidal ideation She denies smoking or illicit drugs however she drinks alcohol she drinks 1 pint as binge style. Patient's vitals are stable, blood pressure is slightly elevated showing mild leukopenia and thrombocytopenia with RBC 3.1 and platelet count 71,000. Hemoglobin normal INR is 1.1. Potassium 3.2, resolved BMP is unremarkable. Bilirubin slightly elevated at 1.7 and AST 1:30 and ALT 98. Troponin is elevated 0.03 and 0.04. TSH is normal 1.6. Chest x-ray: No acute process CAT angio of the head and neck: No evidence of dissection of the cervical internal carotid arteries or vertebral arteries or any evidence of significant stenosis at carotid bifurcations. No evidence of intracranial stenosis or aneurysm CT of the brain: No acute intracranial process 01/31/2023 Patient was seen and examined by me at bedside this morning, she was fully awake and oriented but she was complaining from left leg weakness which started 3 AM in the morning, also she started complaining of from double vision at 6:30 in the morning, because of this we activated prior stroke, repeat CAT scan was negative. We increased her dose of aspirin to 325 mg. Risk including but not limited to bleeding is explained for the patient and she verbalized understanding and acceptance Case was discussed with the neurology service, MRI of the brain, echocardiogram is pending Also patient is under a lot of stress and she might benefit from psychiatric evaluation for possible conversion disorder versus others. In the meantime she remains on thiamine. Clinically other than that she is doing well with no chest pain or dyspnea, no GI or urinary symptoms. She has mild bicytopenia and mild transaminitis secondary to alcohol affect 02/01/2023 Patient is currently lying in the bed. Awake alert and oriented x3. Denies any complaints of weakness or numbness today. MRI of the brain showed no acute CVA. Apparently patient has been hallucinating and talking to people who are not there. Patient states that she is in alcohol withdrawal. Denies any complaints of chest pain or shortness of breath. No nausea or vomiting. Tolerating oral diet. Current medications reviewed. Objective - Vital Signs Vital signs: Vital Signs Temp 97.7 F 02/01/23 08:00 Pulse 78 02/01/23 08:00 Resp 18 02/01/23 08:00 BP 171/93 02/01/23 08:00 Pulse Ox 97 02/01/23 08:00 FiO2 Intake & Output 01/31/23 02/01/23 02/01/23 18:59 06:59 18:59 Intake Total 1378 Output Total 2 Balance -2 1378 Weight 72.575 kg Intake: Oral 1378 Output: Stool 2 Other: Voiding Method Toilet # Voids 2 2 - Exam PHYSICAL EXAMINATION: Patient is lying in the bed comfortably, no acute distress, awake alert and oriented.. HEENT: Normocephalic. Neck is supple. Pupils reactive. Nostrils clear. Oral cavity is moist. Neck reveals no JVD, carotid bruits, or thyromegaly. CHEST EXAMINATION: Trachea is central. Symmetrical expansion. Lung pinzon clear to auscultation and percussion. CARDIAC: Normal S1, S2 with no gallops. No murmurs ABDOMEN: Soft. Bowel sounds present. Nontender. No organomegaly. No abdominal bruits. Extremities: reveal no edema. No clubbing or cyanosis Neurologically awake, alert, oriented x3 with well-coordinated movements. No focal deficits noted Skin: No rash or skin lesions. Psychiatric: Coperative. Nonsuicidal, patient is anxious. Musculoskeletal: No joint swelling or deformity. Normal range of motion. - Labs CBC & Chem 7: 02/01/23 09:38 02/01/23 09:38 Labs: Abnormal Lab Results - Last 24 Hours (Table) 01/31/23 01/31/23 02/01/23 Range/Units 12:08 17:31 09:38 RDW 16.7 H (11.5-15.5) % Plt Count 143 L D (150-450) k/uL Glucose (74-99) mg/dL Magnesium (1.6-2.3) mg/dL Cholesterol 204.00 H (0.00-200.00) mg/dL HDL Cholesterol 74.20 H (40.00-60.00) mg/dL Urine Appearance Cloudy H (Clear) Urine Protein 1+ H (Negative) Urine Ketones Trace H (Negative) Urine Bilirubin 1+ H (Negative) Ur Leukocyte Esterase Trace H (Negative) Urine WBC 11 H (0-5) /hpf Ur Squamous Epith Cells 16 H (0-4) /hpf Amorphous Sediment Occasional H (None) /hpf Urine Bacteria Rare H (None) /hpf Urine Mucus Few H (None) /hpf U Benzodiazepines Scrn Detected H (NotDetected) 02/01/23 Range/Units 09:38 RDW (11.5-15.5) % Plt Count (150-450) k/uL Glucose 106 H (74-99) mg/dL Magnesium 1.2 L (1.6-2.3) mg/dL Cholesterol (0.00-200.00) mg/dL HDL Cholesterol (40.00-60.00) mg/dL Urine Appearance (Clear) Urine Protein (Negative) Urine Ketones (Negative) Urine Bilirubin (Negative) Ur Leukocyte Esterase (Negative) Urine WBC (0-5) /hpf Ur Squamous Epith Cells (0-4) /hpf Amorphous Sediment (None) /hpf Urine Bacteria (None) /hpf Urine Mucus (None) /hpf U Benzodiazepines Scrn (NotDetected) Assessment and Plan Assessment: Dizziness with presyncope with elevated troponin. Unlikely ACS Patient reports weakness in the left leg and blurred/double vision, ruled out stroke. Hallucinations Alcohol withdrawal symptoms Hypertension, uncontrolled Difficulty ambulating, with recent history of fall, could be related to her peripheral neuropathy versus dizziness, versus substance abuse Alcoholic abuse Alcoholic hepatitis with mildly elevated bilirubin Bicytopenia most likely secondary to alcohol effect. Plan: Psychiatry was consulted for evaluation of delirium and possible conversion disorder. Patient will be continued on aspirin and metoprolol. 2D echocardiogram was done. Was started on hydralazine 50 mg twice a day Cardiology and neurology is on board. Continue with [facility] protocol thiamine check vitamin B12 and folate Labs and medication were reviewed.. Subcutaneous heparin GI Prophylaxis: Pepcid PT/OT: Pending Prognosis is guarded Time with Patient: Greater than 30
[2023-02-02] MEDS ORDERED: ASPIRIN 81 MG PO SCH (09:00)
[2023-02-02] MEDS: THIAMINE 100 MG/ML 2 ML VIAL IVP SCH (09:06)
[2023-02-02] MEDS: METOPROLOL TARTRATE 25 MG TAB PO SCH (09:06)
[2023-02-02] MEDS: diazePAM 5 MG TAB PO SCH (09:06)
[2023-02-02] MEDS: SERTRALINE 25 MG TAB PO SCH (09:06)
[2023-02-02] MEDS: HEPARIN SODIUM,PORCINE/PF 5,000 UNIT/0.5 ML SYRINGE SQ SCH (09:06)
[2023-02-02] MEDS: hydrALAZINE HCL 50 MG TAB PO SCH (09:06)
[2023-02-02] MEDS: FAMOTIDINE 20 MG TAB PO SCH (09:06)
[2023-02-02 10:23] VITALS: TEMP 98.2
[2023-02-02 12:19] VITALS: BP 148/82; PULSE 85; RESP 18
--- NOTE | 2023-02-02 13:01 | P.PN ---
Subjective Progress Note Date: 02/02/23 Patient initially seen by Dr. Gallo Sterling. Please refer to his note for details. Patient is a 67-year-old female with history of alcohol abuse, presented with double vision, dizziness and leg weakness. MRI of the brain was reported as negative. Last drink was about [address] Sterling felt possible conversion disorder. Psych has been consulted. Patient at present tells me that she is an alcoholic, used to drink a fifth every other day. She would quit for a few days and would again drink on the weekends. Patient believes that she had a psychotic episode and her blood pressure was very high. She believes it was alcohol withdrawal. She is planning to go for alcohol treatment. All her sy mptoms have resolved and she wants to go home. Some of the workup during his hospital visit consisted of AST: 130, ALT 98. Lipid panel is triglyceride 86, cholesterol 204, LDLs 112 and HDL 74. Hemoglobin A1c 5.6 Folate is 11.6 Vitamin B12 651 TSH is 1.680. Potassium 3.[address] angiography of the head and neck was reported as no evidence of dissection of cervical internal carotid artery or vertebral artery or any evidence of signific ant stenosis of the carotid bifurcation. No evidence of her cranial high-grade stenosis or intracranial aneurysm. EKG is reported as sinus rhythm. Normal EKG. MR the brain is reported no evidence of intracranial mass or acute/subacute infarct. Nonspecific white matter changes, likely secondary to small vessel ischemic disease. Trace bilateral mastoid cell effusion left greater than right. Right maxillary sinus. Nasal sinus disease. I personally reviewed the MRI and agree that there is no acute or subacute ischemic stroke. 2-D echo was reported as left ventricle ejection fraction 55%. Mild increased left ventricle thickness. Mild tricuspid regurgitation. Objective - Vital Signs Vital signs: Vital Signs Temp 98.2 F 02/02/23 09:05 Pulse 85 02/02/23 12:05 Resp 18 02/02/23 12:05 BP 148/82 02/02/23 12:05 Pulse Ox 95 02/02/23 12:05 FiO2 Intake & Output 02/01/23 02/02/23 02/02/23 18:59 06:59 18:59 Intake Total 1378 10 240 Balance 1378 10 240 Intake: IV 10 Invasive Line 2 10 Oral 1378 240 Other: Voiding Method Toilet Toilet # Voids 2 - Exam Patient's mental status, speech-language functions are normal. She is fully oriented. Cranial nerves are normal. Extraocular muscles intact. Face is symmetric and muscle strength is normal. No ataxia for [id number] testing. Tone and bulk of muscles normal. - Labs CBC & Chem 7: 02/01/23 09:38 02/01/23 09:38 Assessment and Plan Assessment: This is a 67-year-old woman who presented because of dizziness, unsteady gait with visual disturbance. Rule out TIA Her episode of dizziness, unsteady gait and left leg weakness: Her MRI Brain is negative for acute or subacute ischemic stroke. Currently symptoms has resolved Escalated hypertension Borderline cardiac enzymes. We will completely deferred to IM/cardiology. Slight hypokalemia History of hypertension Hyperlipidemia Elevated liver enzymes Alcohol abuse last drink according to patient was 2 weeks ago Plan: Dr. Sterling has decreased ASA 325mg daily to 81mg daily (was not on antiplatelets prior to this). No need for dual antiplatelets since felt unlikely stroke. Her MRI Brain is negative. Patient does have hyperlipidemia, but statins discontinued because of elevated liver enzymes. Patient was recommended to have her liver functions and lipid panel checked in the future, and if lipids still abnormal and LFTs returned to normal, then may consider statins. If patient continues to have fluctuation in symptoms recommend routine EEG. Psychiatry team consulted for her severe underlying stress. PT and OT consulted Cardiac monitoring Patient is currently on thiamine 100 mg daily We'll defer the rest of the medical measure the primary team Patient motivated to abstain from alcohol and is planning to undergo alcohol rehab program. Neurologically clear for discharge.
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
--- NOTE | 2023-02-02 16:36 | P.PN ---
Progress Note - Text Progress Note Date: 02/02/23 Psychiatry Follow-up Note: Interval History: Patient was seen resting in her bed. She was directable and agreeable to speak with ad writer. She is tolerating the Zoloft without any reported side effects. She is tolerating the Valium 5 mg TID. She denies alcohol withdrawal symptoms; no shaking, tremors, hallucinations. At this time patient denies any suicidal or homicidal ideations, intent or plan. Patient denies any auditory or visual hallucinations. She denies any paranoia or delusions. Patient denies any side effects from the medications and has been compliant with meds. She is future- oriented and goal-directed. She is looking forward to going home. She hopes to link with a PCP, trauma therapist and [facility] for follow-up. Mental Status Exam: General Appearance: Patient appears to be stated age, with adequate hygiene and grooming, wearing hospital gown with good eye contact. Behavior: Resting in bed without agitation. Speech: Patient's speech is fluent and non-pressured. Mood/Affect: Patient reports their mood is "good", affect is congruent Suicidality/Homicidality: Patient denies having any suicidal or homicidal ideation intent or plan. Perceptions: Patient denies any visual hallucinations and denies any auditory hallucinations. Though content/process: There is no evidence of any delusional thought content and thought process is linear and goal-directed. Memory and concentration: AOX3, grossly intact for the purposes of this session. Judgment and insight: Improving mildly IMPRESSIONS: Unspecified depressive disorder PTSD Alcohol use disorder, severe Alcohol withdrawal with perceptual disturbances - resolved PLAN: -At this time patient DOES NOT meet criteria for inpatient psychiatric admission. -Delirium precautions recommended with patient including - avoiding use of narcotics and DENTAL OFFICER sedatives, limit anticholinergic medications when possible, frequent re-orientation, minimize use of restraints, open window shades during the day and close them at night -Would recommend the following medication changes/additions: Taper and discontinue Valium 5 mg TID as tolerated for alcohol withdrawal. Continue Zoloft 25 mg daily for depression/anxiety. This is a low starting dose that can be increased on an outpatient basis as tolerated. -bridge worker to provide patient with outpatient mental health/psychiatry resources for appropriate follow up upon discharge. -Patient would also like information on a new PCP. -Ratings Analyst spoke with patient about substance abuse and the harmful effects on medical and mental health, patient verbally understood and agreed. -bridge worker to provide patient substance use treatment resources including AA/NA meetings in the community. -bridge worker to provide patient with access line number to call for inpatient substance rehab. -Communicated plan to patient's nurse. -Psychiatry will sign off. -Please contact with any questions.
--- NOTE | 2023-02-06 06:36 | P.DS ---
Providers Date of admission: 02/02/23 07:34 Expected date of discharge: 02/02/23 Attending physician: Rocky Delcid MD Consults: 01/30/23 18:49 Consult Physician Urgent Consulting Provider: Gallo Sterling Consult Reason/Comments: dizziness Do you want consulting provider notified?: Yes 01/31/23 20:47 Consult Physician Routine Consulting Provider: Anuj Lerma Consult Reason/Comments: possible conversion disorder Do you want consulting provider notified?: Already Contacted Primary care physician: Stated None Hospital Course: Final diagnosis Dizziness with presyncope with elevated troponin. Unlikely ACS Patient reports weakness in the left leg and blurred/double vision, ruled out stroke. Hallucinations Alcohol withdrawal symptoms Hypertension, uncontrolled Difficulty ambulating, with recent history of fall, could be related to her peripheral neuropathy versus dizziness, versus substance abuse Alcoholic abuse Alcoholic hepatitis with mildly elevated bilirubin Bicytopenia most likely secondary to alcohol effect. Discharge disposition Patient is being discharged in a stable condition with guarded prognosis to home. Patient will follow-up with Dr. Levy in the outpatient setting upon discharge. Patient is to continue with current medications as mentioned below and outpatient follow-up with neurology and [facility] as well as cardiology as scheduled. Total time taken is greater than 35 minutes. Hospital course This is a 67-year-old female who was recently admitted with dizziness and elevated troponin with weakness and being closely monitored. Patient underwent neurological workup along with evaluation by cardiology and has been cleared by consultations. Please refer to other consultation notes for further HPI. Patient encouraged to follow-up with [facility] mental health in the outpatient setting along with cardiology outpatient. Currently no reports of chest pain, shortness of breath, or palpitations. Patient is afebrile. No reports of nausea or vomiting and patient is tolerating diet. Patient will be discharged home today. High risk for readmissions due to noncompliance and continued alcohol use Physical exam: Gen: This is a 67-year-old female who is awake, alert and oriented 3, well- developed, well-nourished HEENT: Head is atraumatic, normocephalic. Pupils equal, round. Sclerae is anicteric. NECK: Supple. No JVD. No lymphadenopathy. No thyromegaly. LUNGS: Clear to auscultation. No wheezes or rhonchi. No intercostal retractions. HEART: Regular rate and rhythm. No murmur. ABDOMEN: Soft. Bowel sounds are present. No masses. No tenderness. EXTREMITIES: No pedal edema. No calf tenderness. NEUROLOGICAL: Patient is awake, alert and oriented x3. Cranial nerves 2 through 12 are grossly intact. Please refer to medication reconciliation sheet for a list of medications. The impression and plan of care has been dictated by Linda Joshua, Nurse Practitioner as directed. Dr. Treasure MD I have performed a history and examination and MDM of this patient, discussed the same with the dictator, and agree with the dictator's assessment and plan as written ,documented as a scribe. Based on total visit time, I have performed more than 50% of the visit. Patient Condition at Discharge: Fair Plan - Discharge Summary Discharge Rx Participant: No New Discharge Prescriptions: New hydrALAZINE HCL [Apresoline] 50 mg PO BID #60 tab Aspirin 81 mg PO DAILY #30 tab Sertraline [Zoloft] 25 mg PO DAILY #30 tab Metoprolol Tartrate [Lopressor] 25 mg PO BID #60 tab diazePAM [Valium] 5 mg PO BID PRN #4 tab PRN Reason: Spasms Thiamine [Vitamin B-1] 100 mg PO DAILY #30 tablet Continue Acetaminophen Tab [Tylenol] 1,000 mg PO Q6H PRN PRN Reason: Pain Or Fever > 100.5 Omeprazole 20 mg PO DAILY PRN PRN Reason: gerds Discharge Medication List Acetaminophen Tab [Tylenol] 1,000 mg PO Q6H PRN 01/30/23 [History] Omeprazole 20 mg PO DAILY PRN 01/30/23 [History] Aspirin 81 mg PO DAILY #30 tab 02/02/23 [Rx] Metoprolol Tartrate [Lopressor] 25 mg PO BID #60 tab 02/02/23 [Rx] Sertraline [Zoloft] 25 mg PO DAILY #30 tab 02/02/23 [Rx] Thiamine [Vitamin B-1] 100 mg PO DAILY #30 tablet 02/02/23 [Rx] diazePAM [Valium] 5 mg PO BID PRN #4 tab 02/02/23 [Rx] hydrALAZINE HCL [Apresoline] 50 mg PO BID #60 tab 02/02/23 [Rx] Follow up Appointment(s)/Referral(s): Tasha Kenney MD [REFERRING] - 1 Week (Call office to make appointment. ) Marcos Resendez DO [STAFF PHYSICIAN] - 1 Week (office will call with date and time for follow up. ) Imelda Levy MD [STAFF PHYSICIAN] - 1 Week (Recommended primary DR, call to make appointment. ) [facility] [NON-STAFF] - 1 Week (call for follow up. ) Ambulatory/Diagnostic Orders: Basic Metabolic Panel [LAB.AMB] Time Frame: 3 Days, Location: None Selected Patient Instructions/Handouts: Chronic Hypertension (DC) Activity/Diet/Wound Care/Special Instructions: Activity Limited until follow-up Follow-up with cardiology outpatient Follow-up and establish with primary care provider Follow-up with [facility] outpatient Discharge/Stand Alone Forms: [facility], Outpatient Counseling, In Substance Abuse Facilities Discharge Disposition: HOME SELF-CARE
== END 2023-02-02 14:22 | disposition home or self-care (01) | DRG 312 ==
LOC: EC 14:01 → 3SCARD 18:20 → OBSVTOIN 02-02 07:34
PROVIDERS: ADMIT Internal Medicine; ATTEND Internal Medicine
DX: R55 Syncope and collapse (principal); F10.232 Alcohol dependence with withdrawal with perceptual disturbance; R77.8 Other specified abnormalities of plasma proteins; E78.5 Hyperlipidemia, unspecified; K70.10 Alcoholic hepatitis without ascites; I10 Essential (primary) hypertension; W19.XXXA Unspecified fall, initial encounter; F32.A Depression, unspecified; F43.10 Post-traumatic stress disorder, unspecified; Z79.82 Long term (current) use of aspirin; Z79.899 Other long term (current) drug therapy; Z88.6 Allergy status to analgesic agent; Z88.5 Allergy status to narcotic agent; Z88.8 Allergy status to other drugs, medicaments and biological substances; Z91.199 Patient's noncompliance with other medical treatment and regimen due to unspecified reason
CPT/HCPCS: 36415; 70450; 70496; 70498; 70551; 71046; 72125; 80048; 80053; 80061; 80076; 80306; 81001; 82607; 82746; 83036; 83605; 83735; 84425; 84443; 84484; 85025; 85610; 93005; 93306; 96361; 96374; 99285

== ENCOUNTER 2023-02-22 22:55 | Inpatient (IN) | payer MEDICARE, OTHER ==
[2023-02-22] MEDS ORDERED: SODIUM CHLORIDE 0.9% 1,000 ML IV ONE (23:08)
[2023-02-22] MEDS ORDERED: LORazepam 2 MG/ML INJ IV STA ×2 (23:08)
--- NOTE | 2023-02-22 23:16 | ED ---
Alcohol HPI - General Chief Complaint: Alcohol Stated Complaint: Alcohol Withdrawal Time Seen by Provider: 02/22/23 22:56 Source: patient Mode of arrival: EMS Limitations: no limitations - History of Present Illness Initial Comments: This patient is a 67-year-old woman who presents to have evaluation for what she believes his withdrawal. She states that she "is an alcoholic" and that she drank a fifth of vodka between last night and 2 in the afternoon today. Now she feels like she is becoming shaky and anxious. She states feel like myself. She denies pain or dyspnea. She has had multiple episodes of nausea and vomiting but denies seeing blood or coffee-ground material. MD Complaint: alcohol withdrawal Time Since Last Drink: 9 -: hour(s) Recent Trauma: No Associated Symptoms: nausea, vomiting, tremors Treatments Prior to Arrival: none Chronic Alcohol Use: Yes - Related Data Home Medications Medication Instructions Recorded Confirmed Acetaminophen Tab [Tylenol] 1,000 mg PO Q6H PRN 01/30/23 02/23/23 Omeprazole 20 mg PO DAILY PRN 01/30/23 02/23/23 Previous Rx's Medication Instructions Recorded Aspirin 81 mg PO DAILY #30 tab 02/02/23 Metoprolol Tartrate [Lopressor] 25 mg PO BID #60 tab 02/02/23 Thiamine [Vitamin B-1] 100 mg PO DAILY #30 tablet 02/02/23 hydrALAZINE HCL [Apresoline] 50 mg PO BID #60 tab 02/02/23 Folic Acid 1 mg PO DAILY@1200 #30 tab 02/25/23 Multivitamins, Thera [Multivitamin 1 each PO DAILY@1200 #30 tab 02/25/23 (formulary)] Naltrexone HCl [Revia] 50 mg PO DAILY 30 Days #30 tab 02/25/23 Sertraline [Zoloft] 50 mg PO DAILY 30 Days #30 tab 02/25/23 chlordiazePOXIDE HCl [Librium] 10 mg PO TID #6 cap 02/25/23 Allergies Allergy/AdvReac Type Severity Reaction Status Date / Time clonazepam [From Klonopin] AdvReac Severe extreme Verified 02/23/23 07:06 drop in Blood pressure prochlorperazine AdvReac Severe Suicidal Verified 02/23/23 07:06 [From Compazine] ideations diphenhydramine AdvReac aggresive Verified 02/23/23 07:06 [From Benadryl] behavior, aggitation fentanyl AdvReac Nausea & Verified 02/23/23 07:06 Vomiting hydrocodone [From Colonia] AdvReac Nausea & Verified 02/23/23 07:06 Vomiting hydromorphone [From Dilaudid] AdvReac Nausea & Verified 02/23/23 07:06 Vomiting morphine AdvReac Nausea & Verified 02/23/23 07:06 Vomiting oxycodone [From Percocet] AdvReac Nausea & Verified 02/23/23 07:06 Vomiting Review of Systems ROS Statement: Those systems with pertinent positive or pertinent negative responses have been documented in the HPI. ROS Other: All systems not noted in ROS Statement are negative. Constitutional: Denies: fever, chills Respiratory: Denies: cough, dyspnea Cardiovascular: Denies: chest pain, palpitations Gastrointestinal: Reports: nausea, vomiting. Denies: abdominal pain, diarrhea, melena Genitourinary: Denies: dysuria, hematuria Musculoskeletal: Denies: back pain Skin: Denies: rash Neurological: Denies: headache, weakness Psychiatric: Reports: anxiety Past Medical History Past Medical History: Hypertension, Pneumonia Additional Past Medical History / Comment(s): Alcohol withdrawal History of Any Multi-Drug Resistant Organisms: None Reported Past Surgical History: Cholecystectomy, Hysterectomy, Tonsillectomy Past Psychological History: Unable to Obtain Smoking Status: Never smoker Past Alcohol Use History: Heavy Past Drug Use History: None Reported - Past Family History Mother Family Medical History: Dementia Sister(s) Family Medical History: Cancer Brother(s) Family Medical History: Cancer General Exam Limitations: no limitations General appearance: alert, anxious Head exam: Present: atraumatic, normocephalic Eye exam: Present: normal appearance. Absent: scleral icterus, conjunctival injection ENT exam: Present: mucous membranes dry Neck exam: Present: normal inspection, full ROM Respiratory exam: Present: normal lung sounds bilaterally. Absent: respiratory distress, wheezes, rales, rhonchi, stridor Cardiovascular Exam: Present: normal rhythm, tachycardia, normal heart sounds. Absent: systolic murmur, diastolic murmur, rubs, gallop GI/Abdominal exam: Present: soft. Absent: distended, tenderness, guarding, rebound, rigid, mass Extremities exam: Present: normal inspection, normal capillary refill. Absent: pedal edema, calf tenderness Back exam: Present: normal inspection. Absent: CVA tenderness (R), CVA tenderness (L) Neurological exam: Present: alert Skin exam: Present: warm, dry, intact, normal color. Absent: rash Course Vital Signs 02/22/23 02/23/23 02/23/23 22:56 00:06 02:06 Temperature 98.6 F Pulse Rate 120 H 121 H 110 H Respiratory 22 22 21 Rate Blood Pressure 191/109 178/112 O2 Sat by Pulse 97 97 Oximetry 02/23/23 02/23/23 02:11 02:37 Temperature Pulse Rate 110 H 112 H Respiratory 18 20 Rate Blood Pressure 179/109 171/103 O2 Sat by Pulse 96 95 Oximetry Medical Decision Making - Medical Decision Making This patient is a 67-year-old woman presenting here with complaints of suspected alcohol withdrawal. She wanted to be seen by the psychiatric service and this was pending sobriety at the time of the shift change Was pt. sent in by a medical professional or institution ([facility], [facility], urgent care, hospital, or senior living...) When possible be specific @ -[No] Did you speak to anyone other than the patient for history (EMS, parent, family, police, friend...)? What history was obtained from this source @ -[No] Did you review nursing and triage notes (agree or disagree)? Why? @ -[I reviewed and agree with nursing and triage notes] Were old charts reviewed (outside hosp., previous admission, EMS record, old EKG, old radiological studies, urgent care reports/EKG's, senior living records)? Report findings @ -[No old charts were reviewed] Differential Diagnosis (chest pain, altered mental status, abdominal pain women, abdominal pain men, vaginal bleeding, weakness, fever, dyspnea, syncope, headache, dizziness, GI bleed, back pain, seizure, CVA, palpatations, mental health, musculoskeletal)? @ -[Differential Mental Health Depression, anxiety, bipolar, psychosis, schizophrenia, borderline personality, situational depression, adjustment disorder, behavioral disorder, brain tumor, malingering, substance abuse, encephalopathy, medication reaction, dementia, hypothyroidism, degenerative neurologic disorder, lupus.... This is not meant to be all-inclusive list EKG interpreted by me (3pts min.). @ -[As above] X-rays interpreted by me (1pt min.). @ -[None done] CT interpreted by me (1pt min.). @ -[None done] U/S interpreted by me (1pt. min.). @ -[None done] What testing was considered but not performed or refused? (CT, X-rays, U/S, labs)? Why? @ -[None] What meds were considered but not given or refused? Why? @ -[None] Did you discuss the management of the patient with other professionals (professionals i.e. , PA, [facility], lab, RT, psych nurse, social sciences instructor, farebox repairer, teacher, community cultural development officer, bilingual case manager)? Give summary @ -[No] Was smoking cessation discussed for >3mins.? @ -[No] Was critical care preformed (if so, how long)? @ -[No] Were there social determinants of health that impacted care today? How? (Homelessness, low income, unemployed, alcoholism, drug addiction, transportation, low edu. Level, literacy, decrease access to med. care, [place] [facility], rehab)? @ -[Alcoholism Was there de-escalation of care discussed even if they declined (Discuss DNR or withdrawal of care, Hospice)? DNR status @ -[No] What co-morbidities impacted this encounter? (DM, HTN, Smoking, COPD, CAD, Cancer, CVA, ARF, Chemo, Hep., AIDS, mental health diagnosis, sleep apnea, morbid obesity)? @ -[None] Was patient admitted / discharged? Hospital course, mention meds given and route, prescriptions, significant lab abnormalities, going to OR and other per tinent info. @ -[Patient admitted Undiagnosed new problem with uncertain prognosis? @ -[No] Drug Therapy requiring intensive monitoring for toxicity (Heparin, Nitro, Insulin, Cardizem)? @ -[No] Were any procedures done? @ -[No] Diagnosis/symptom? @ -[Alcohol withdrawal Acute, or Chronic, or Acute on Chronic? @ -[Acute Uncomplicated (without systemic symptoms) or Complicated (systemic symptoms)? @ -[Uncomplicated Side effects of treatment? @ -[No] Exacerbation, Progression, or Severe Exacerbation? @ -[No] Poses a threat to life or bodily function? How? (Chest pain, USA, PA, pneumonia, PE, COPD, DKA, ARF, appy, cholecystitis, CVA, Diverticulitis, Homicidal, Suicidal, threat to staff... and all critical care pts) @ -[Yes, untreated alcohol withdrawal may progress to delirium tremens and possibly . - Lab Data Result diagrams: 02/24/23 04:41 02/24/23 04:41 Lab Results 02/22/23 02/22/23 Range/Units 23:30 23:30 WBC 2.7 L (3.8-10.6) k/uL RBC 4.69 (3.80-5.40) m/uL Hgb 15.0 (11.4-16.0) gm/dL Hct 45.2 (34.0-46.0) % MCV 96.4 (80.0-100.0) fL MCH 31.9 (25.0-35.0) pg MCHC 33.1 (31.0-37.0) g/dL RDW 16.0 H (11.5-15.5) % Plt Count 78 L (150-450) k/uL MPV 8.1 Neutrophils % 61 % Lymphocytes % 33 % Monocytes % 4 % Eosinophils % 0 % Basophils % 0 % Neutrophils # 1.6 (1.3-7.7) k/uL Lymphocytes # 0.9 L (1.0-4.8) k/uL Monocytes # 0.1 (0-1.0) k/uL Eosinophils # 0.0 (0-0.7) k/uL Basophils # 0.0 (0-0.2) k/uL Anisocytosis Slight Sodium 140 (137-145) mmol/L Potassium 3.5 (3.5-5.1) mmol/L Chloride 100 (98-107) mmol/L Carbon Dioxide 14 L (22-30) mmol/L Anion Gap 26 mmol/L BUN 7 (7-17) mg/dL Creatinine 0.74 (0.52-1.04) mg/dL Est GFR (CKD-EPI)AfAm >90 (>60 ml/min/1.73 sqM) Est GFR (CKD-EPI)NonAf 86 (>60 ml/min/1.73 sqM) Glucose 163 H (74-99) mg/dL Calcium 9.0 (8.4-10.2) mg/dL Total Bilirubin 1.2 (0.2-1.3) mg/dL AST 73 H (14-36) U/L ALT 55 H (4-34) U/L Alkaline Phosphatase 70 (38-126) U/L Total Protein 8.1 (6.3-8.2) g/dL Albumin 4.9 (3.5-5.0) g/dL Serum Alcohol 143 mg/dL - EKG Data -: EKG Interpreted by Oh EKG shows normal: sinus rhythm, axis (Normal), intervals (Normal), QRS complexes (Normal) Rate: tachycardia (Rate 118 bpm) Interpretation: nonspecific ST-T wave changes Disposition Clinical Impression: Alcohol withdrawal Disposition: ADMITTED IP TO THIS HOSP Condition: Stable
[2023-02-22] MEDS ORDERED: ONDANSETRON 4 MG/2 ML VIAL IVP STA (23:18)
[2023-02-23 00:12] LABS: ALT 55 U/L (4-34); AST 73 U/L (14-36); African American GFR (CKD) >90 (>60 ml/min/1.73 sqM); Albumin 4.9 g/dL (3.5-5.0); Alkaline Phosphatase 70 U/L (38-126); Anion Gap 26 mmol/L; Blood Urea Nitrogen 7 mg/dL (7-17); Carbon Dioxide 14 mmol/L (22-30); Chloride 100 mmol/L (98-107); Glucose 163 mg/dL (74-99); Non-African American GFR(CKD) 86 (>60 ml/min/1.73 sqM); Potassium 3.5 mmol/L (3.5-5.1); Sodium 140 mmol/L (137-145); Total Bilirubin 1.2 mg/dL (0.2-1.3); Total Protein 8.1 g/dL (6.3-8.2)
[2023-02-23 00:24] LABS: Alcohol 143 mg/dL
[2023-02-23 00:32] LABS: Anisocytosis Slight; Basophils % (A) 0 %; Eosinophils % (A) 0 %; HCT 45.2 % (34.0-46.0); Lymphocytes # (A) 0.9 k/uL (1.0-4.8); Lymphocytes % (A) 33 %; MCH 31.9 pg (25.0-35.0); MCHC 33.1 g/dL (31.0-37.0); MCV 96.4 fL (80.0-100.0); Mean Platelet Volume 8.1; Monocytes # (A) 0.1 k/uL (0-1.0); Monocytes % (A) 4 %; Neutrophils # (A) 1.6 k/uL (1.3-7.7); Neutrophils % (A) 61 %; Platelet Count 78 k/uL (150-450); RBC 4.69 m/uL (3.80-5.40); WBC 2.7 k/uL (3.8-10.6)
[2023-02-23] MEDS ORDERED: NALOXONE 0.4 MG/ML 1 ML VIAL IV PRN (02:03)
[2023-02-23] MEDS ORDERED: chlordiazePOXIDE 25 MG CAP PO PRN (02:04)
[2023-02-23] MEDS ORDERED: LORazepam 2 MG/ML INJ IV PRN ×2 (02:04)
[2023-02-23] MEDS: SODIUM CHLORIDE 0.9% 1,000 ML IV SCH ×3 (02:13→18:21)
[2023-02-23] MEDS ORDERED: METOPROLOL TARTRATE 50 MG TAB PO STA (02:56)
[2023-02-23] MEDS ORDERED: LORazepam 2 MG/ML INJ IV STA (02:57)
[2023-02-23] MEDS ORDERED: ACETAMINOPHEN TAB 500 MG TAB PO PRN (11:31)
[2023-02-23] MEDS ORDERED: PANTOPRAZOLE 40 MG TABLET PO PRN (11:31)
[2023-02-23] MEDS ORDERED: cloNIDine HCL 0.1 MG TAB PO PRN (11:33)
[2023-02-23] MEDS ORDERED: chlordiazePOXIDE 25 MG CAP PO SCH (13:00)
[2023-02-23] MEDS: METOPROLOL TARTRATE 25 MG TAB PO SCH ×2 (13:21→20:27)
[2023-02-23] MEDS: hydrALAZINE HCL 50 MG TAB PO SCH ×2 (13:21→20:27)
[2023-02-23] MEDS ORDERED: SERTRALINE 50 MG TAB PO STA (13:25)
[2023-02-23] MEDS ORDERED: MELATONIN 3 MG TABLET PO PRN (13:26)
--- NOTE | 2023-02-23 13:33 | P.CN ---
Psychiatric Consult - . Consult date: 02/23/23 Consult:: 02/23/23 12:48 IDENTIFYING DATA: This patient is a 67-year-old female currently , has 4 kids, collects SSI. She currently lives in a mobile home. REASON FOR REFERRAL: Psychiatry was consulted for alcohol withdrawal symptoms HISTORY OF PRESENT ILLNESS: The patient presented to the hospital on 02/22 for alcohol withdrawal symptoms. Patient reported in the ER that she drinks about a fifth of vodka a day, she was presenting with shaking, feeling anxious nausea and vomiting. Patient was admitted medically. Psychiatry is consulted and saw patient today at the bedside. Patient was sleeping and awoken by tech writer. She did appear to be somewhat tremulous when reaching for water. She states that she is a "alcoholic" and states that assuming going on for a long time. She states that she was sober for a while and then relapsed recently. She states then she binged heavily this past Thursday and Thursday. She claims that she went "immediately into withdrawal". States that she has been still dealing with the loss of her and grieving as her about 1-1/2 years ago. She states that the longest time she is gone being sober was about 5 years. She states that she recently moved to the area in a mobile home and has had little support and friends in the area. Claims that she is having elevated levels of anxiety, admits to a history of DTs in the past with hallucinations. Claims that her sleep has been on and off, states that her appetite has been poor due to the drinking. States that she is having some depression and has recently been starting on Zoloft. At this time patient denies any suicidal or homical ideations, intent or plan. Patient denies any auditory, visual hallucinations and denies any paranoia or delusions. Patients admits to using alcohol as noted above, she states that she is never had a DUI, claims that she is in the rehab twice in the past. Denies any other recreational drug use PAST PSYCHIATRIC HISTORY: Patient has a a history of depression, anxiety and states that she was supposed to be following up with [facility] however has only done so once and does not know if she follows up with. She claims that she is currently on Zoloft 25 mg daily for mood/anxiety. Patient denies any previous psychiatric hospitalizations. Patient denies any history of suicide attempts in the past. Past Medical History: Hypertension, Pneumonia Additional Past Medical History / Comment(s): Alcohol withdrawal History of Any Multi-Drug Resistant Organisms: None Reported Past Surgical History: Cholecystectomy, Hysterectomy, Tonsillectomy Past Psychological History: Unable to Obtain Smoking Status: Never smoker Past Alcohol Use History: Heavy Past Drug Use History: None Reported ALLERGIES: as per EMR. CHEMICAL DEPENDENCY HISTORY: as per HPI. FAMILY PSYCHIATRIC/SUBSTANCE USE HISTORY: She claims that her mother has bipolar disorder, sister has depression. SOCIAL HISTORY: Patient was born and raised in [facility]. She states that she also grew up and was living in [facility] [place]. She is states that she completed high school and did some college. 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 She states that she is currently , has 4 kids. She collects SSI. She lives in a mobile home at this time. Denies any legal history. MENTAL STATUS EXAM: General Appearance: Patient appears to have short hair, wearing glasses, be stated age is alert, pleasant, and attempts to be cooperative. Patient appears to have fair hygiene and grooming wearing hospital gown with fair eye contact. Behavior: Patient is calmly lying in bed without any agitated behavior. Tremulous in her hands. Speech: Patient's speech is fluent and nonpressured. [place] Mood/Affect: Patient reports their mood is "depressed and anxious", affect is congruent and constricted Suicidality/Homicidality: Patient denies having any suicidal or homicidal ideation intent or plan. Perceptions: Patient denies any visual hallucinations and denies any auditory hallucinations Though content/process: There is no evidence of any delusional thought content and thought process is linear and goal-directed. [place] Memory and concentration: AOX3, grossly intact for the purposes of this session. Can spell "WORLD" backwards Judgment and insight: poor IMPRESSIONS: Depressive disorder unspecified Alcohol use disorder, severe dependence, currently in withdrawal PLAN: -At this time patient DOES NOT meet criteria for inpatient psychiatric admission. -Would recommend the following medication changes/additions: Continue with supportive care for withdrawal symptoms. Starting a taper of Librium scheduled, starting with 25 mg 3 times a day decreased to 10 mg 3 times a day and continue to taper off within the next 2 or 3 days. Start naltrexone 50 mg by mouth daily for alcohol cravings, increase Zoloft to 50 mg daily for mood/anxiety, melatonin 6 mg daily at bedtime when necessary for sleep. -CIWA protocol with PRN Ativan for alcohol withdrawal. Continue to monitor vital signs. -Telephone Recorder spoke with patient about substance abuse and the harmful effects on medical and mental health, patient verbally understood and agreed. -turf farm worker to provide patient substance use treatment resources including AA/NA meetings in the community. -turf farm worker to provide patient with access line number to call for inpatient substance rehab -Communicated plan to patient's nurse -Will continue to follow along tomorrow then likely sign off. Patient is contemplative about going into rehab at this time. -Please contact with any questions. 02/23/23 13:27
--- NOTE | 2023-02-23 14:14 | HP ---
HISTORY AND PHYSICAL CHIEF COMPLAINT: Alcohol withdrawal. HISTORY OF PRESENT ILLNESS: This is a 67-year-old woman with a past medical history of hypertension, also had history of alcohol intake. Patient stopped alcohol, but the patient relapsed. The patient was drinking up to 5th of alcohol and came with withdrawal symptoms. The patient admitted for further evaluation. There is no history of any fever, rigor, or chills. PAST MEDICAL HISTORY: Reviewed, hypertension, pneumonia, rest of the chart and rest of the history is reviewed. HOME MEDICATIONS: Hydralazine, dose and rest of medications noted. ALLERGIES: Reviewed include Klonopin, rest of the allergies noted. FAMILY HISTORY: History of dementia. SOCIAL HISTORY: Alcohol, no history of smoking. REVIEW OF SYSTEMS: A 14-point review is negative except as mentioned earlier. PHYSICAL EXAMINATION: VITAL SIGNS: Pulse is 94, blood pressure 179/98, respirations 18. HEENT: Conjunctivae normal. NECK: No jugular venous distention. No carotid bruit. CARDIOVASCULAR: S1, S2 muffled. RESPIRATIONS: Diminished at the bases. ABDOMEN: Soft, nontender. LEGS: No edema, no swelling. NERVOUS SYSTEM: Mild tremors. SKIN: No ulcer, rash, bleeding. Skin is flushed. JOINTS: No active deforming arthropathy. LABORATORY DATA: WBC 2.7, rest of the labs are noted. ASSESSMENT AND PLAN: 1. Acute alcohol withdrawal and delirium tremens. 2. History of alcohol intake. 3. Hypertension. 4. Pneumonia. 5. Anxiety, depression, PTSD. RECOMMENDATIONS AND DISCUSSION: This 67-year-old woman presented with multiple complex medical issues, will monitor the patient closely. [facility] protocol. Repeat labs. Monitor blood pressure closely. Psychiatric consultation. Resume the home medications once they are confirmed. Prognosis is guarded. Further recommendations to follow. MMODL / IJN: [id number] /
[2023-02-23 14:40] VITALS: BMI 27.4
[2023-02-23] MEDS: NALTREXONE HCL 50 MG TAB PO SCH (15:36)
[2023-02-23] MEDS: LORazepam 2 MG/ML INJ IV PRN (23:52)
[2023-02-24] MEDS: SODIUM CHLORIDE 0.9% 1,000 ML IV SCH ×3 (01:48→16:50)
[2023-02-24] MEDS: ASPIRIN 81 MG PO SCH (07:42)
[2023-02-24] MEDS: THIAMINE 100 MG TAB PO SCH (07:43)
[2023-02-24] MEDS: hydrALAZINE HCL 50 MG TAB PO SCH ×2 (07:43→20:37)
[2023-02-24] MEDS: SERTRALINE 50 MG TAB PO SCH (07:43)
[2023-02-24] MEDS: METOPROLOL TARTRATE 25 MG TAB PO SCH ×2 (07:43→20:37)
[2023-02-24] MEDS: NALTREXONE HCL 50 MG TAB PO SCH (07:43)
[2023-02-24] MEDS ORDERED: THIAMINE 100 MG TAB PO SCH (09:00)
[2023-02-24] MEDS ORDERED: SERTRALINE 25 MG TAB PO SCH (09:00)
[2023-02-24 09:23] LABS: African American GFR (CKD) 105.4 (60.0-200.0); Anion Gap 11.4 mmol/L (10.00-18.00); BUN/Creat Ratio 10.57 Ratio (12.00-20.00); Blood Urea Nitrogen 7.4 mg/dL (9.0-27.0); Calcium 8.6 mg/dL (8.7-10.3); Carbon Dioxide 24.6 mmol/L (20.0-27.5); Non-African American GFR(CKD) 90.9 (60.0-200.0); Potassium 3.7 mmol/L (3.5-5.5)
[2023-02-24 11:04] LABS: Basophils # (A) 0.01 X 10*3/uL (0.00-0.10); Basophils % (A) 0.3 %; Eosinophils # (A) 0.04 X 10*3/uL (0.04-0.35); Eosinophils % (A) 1.3 %; HCT 36.7 % (37.2-46.3); HGB 12.1 g/dL (12.0-15.0); Immature Grans, Automated 0 %; Immature Platelet Fraction 8.7 % (1.1-6.1); Lymphocytes # (A) 1.29 X 10*3/uL (0.90-5.00); Mean Platelet Volume 11.1 fL (9.5-12.2); Monocytes # (A) 0.24 X 10*3/uL (0.20-1.00); Monocytes % (A) 7.8 %; NRBC Per 100 WBC 0 /100 WBCS (0.0-0.0); Neutrophils # (A) 1.49 X 10*3/uL (1.80-7.70); Neutrophils % (A) 48.6 %; Platelet Count 51 X 10*3/uL (140-440); RBC 3.67 X 10*6/uL (4.10-5.20); RDW 15.9 % (11.5-14.5); WBC 3.07 X 10*3/uL (4.50-10.00)
[2023-02-24] MEDS ORDERED: FOLIC ACID 1 MG TAB PO SCH (12:00)
[2023-02-24] MEDS ORDERED: MULTIVITAMINS, THERA 1 EACH TAB PO SCH (12:00)
--- NOTE | 2023-02-24 13:25 | P.PN ---
Progress Note - Text Progress Note Date: 02/24/23 Interval history: Patient was seen today for psychiatric follow up. Patient was laying in bed w atching television. She claims that she is feeling a bit tired today and states that it is from the medications. Perforator Operator [employer] explained the taper of her Librium. She states that her alcohol withdrawal symptoms of an improving. She is not tremulous today. She states that her mood and anxiety and then gradually improving since yesterday. Claims that she did not sleep well at all last night. We spoke about other options with sleep and she was accused of trying trazodone for tonight. States that her appetite is gradually improving as well. She continues to state that she would not do well in a rehab setting and would rather go home and to outpatient follow-up. At this time she is denying any suicidal or homicidal ideations intent or plan. Denying any auditory or visual hallucinations. MENTAL STATUS EXAM: General Appearance: Patient appears to have short hair, wearing glasses, be stated age is alert, pleasant, and attempts to be cooperative. Patient appears to have fair hygiene and grooming wearing hospital gown with fair eye contact. Behavior: Patient is calmly lying in bed without any agitated behavior. Not tremulous today. Speech: Patient's speech is fluent and nonpressured. [place] Mood/Affect: Patient reports their mood is "a bit better", affect is congruent Suicidality/Homicidality: Patient denies having any suicidal or homicidal ideation intent or plan. Perceptions: Patient denies any visual hallucinations and denies any auditory hallucinations Though content/process: There is no evidence of any delusional thought content and thought process is linear and goal-directed. [place] Memory and concentration: AOX3, grossly intact for the purposes of this session. Judgment and insight: Improving mildly IMPRESSIONS: Depressive disorder unspecified Alcohol use disorder, severe dependence, currently in withdrawal PLAN: -At this time patient DOES NOT meet criteria for inpatient psychiatric admission. -Would recommend the following medication changes/additions: Continue with supportive care for withdrawal symptoms. continue with taper of Librium scheduled, decreased to 10 mg 3 times a day and continue to taper off within the next 1-2 days. naltrexone 50 mg by mouth daily for alcohol cravings, Zoloft to 50 mg daily for mood/anxiety, added trazodone 50 mg qhs prn for sleep. -CIWA protocol with PRN Ativan for alcohol withdrawal. Continue to monitor vital signs. -Perforator [employer] spoke with patient about substance abuse and the harmful effects on medical and mental health, patient verbally understood and agreed. -propagation worker to provide patient substance use treatment resources including AA/NA meetings in the community. -Communicated plan to patient's nurse -psychiatry will sign off at this time. patient does not want to go to inpt rehab at this time and would prefer outpatient counselling instead -Please contact with any questions.
[2023-02-24] MEDS: LORazepam 2 MG/ML INJ IV PRN (15:10)
[2023-02-25] MEDS: SODIUM CHLORIDE 0.9% 1,000 ML IV SCH (01:49)
[2023-02-25] MEDS ORDERED: LORazepam 0.5 MG TAB PO PRN (06:48)
--- NOTE | 2023-02-25 06:55 | P.PN ---
Subjective Progress Note Date: 02/24/23 This is a 67-year-old female who was recently admitted with acute alcohol intoxication. Patient had recently been sober for 2 weeks although request and started drinking again. Patient is maintained on CIWA protocol and will continue. Patient continues to report some withdrawal symptoms and is also m aintained on Librium taper. Patient being evaluated by psychiatry and does not meet inpatient criteria. Discussion was had about possible alcohol rehab and patient does not want to go there. Patient is currently afebrile with no reports of chest pain or shortness of breath noted. Oral intake is fair and denies nausea or vomiting. Encouraged increased activity as tolerated. Patient is still requiring some Ativan and will taper with possible discharge in 24 hours Review of systems: Constitutional: reports of fatigue, no fever, or chills Cardiovascular: No reports of chest pain or palpitations Respiratory: No reports of shortness of breath or cough GI: no reports of nausea, no reports of vomiting, no diarrhea : No reports of dysuria or retention Neurovascular: no reports of generalized weakness All medications have been reviewed PHYSICAL EXAMINATION: GENERAL: The patient is alert and oriented x3, Well developed, well nourished. HEENT: Pupils are round and equally reacting to light. EOMI. no scleral icterus. No conjunctival pallor. Normocephalic, atraumatic. No pharyngeal erythema. No thyromegaly. CARDIOVASCULAR: S1 and S2 muffled PULMONARY: diminished breath sounds bilaterally with no wheezing or rhonchi noted. ABDOMEN: soft. Nontender on exam. obese. non-distended, normoactive bowel sounds. No palpable organomegaly. MUSCULOSKELETAL: No joint swelling or deformity. EXTREMITIES: No cyanosis, clubbing, or pedal edema. NEUROLOGICAL: Gross neurological examination did not reveal any focal deficits. SKIN: No rashes. Assessment: Acute alcohol withdrawal and delirium tremens History of continued alcohol abuse Hypertension Anxiety/depression with PTSD GI prophylaxis DVT prophylaxis Full code Plan: Recommend to continue with current medications and management was psychiatry following. Patient is maintained on CIWA protocol along with the Librium taper. Librium being dosed down and will recommend tapering IV Ativan if possible and will adjust and add oral Ativan when necessary. Encouraged oral intake and increased activity as tolerated. Patient continues to have some acute withdrawal symptoms and will monitor overnight with possible discharge in 24 hours Psychiatry has evaluated the patient not meeting inpatient criteria and strongly recommends outpatient follow-up with AA and [facility] Possible discharge in 24 hours The impression and plan of care has been dictated by Linda Joshua, nurse practitioner as directed. Dr. Zhen MD I have performed a history and examination and MDM of this patient, discussed the same with the dictator, and agree with the dictator's assessment and plan as written ,documented as a scribe. Based on total visit time, I have performed more than 50% of the visit. Any additional findings or plans will be noted. Objective - Vital Signs Vital signs: Vital Signs Temp 98.4 F 02/25/23 02:00 Pulse 85 02/25/23 02:00 Resp 14 02/25/23 02:00 BP 151/82 02/25/23 02:00 Pulse Ox 97 02/25/23 02:00 FiO2 Intake & Output 02/24/23 02/24/23 02/25/23 06:59 18:59 06:59 Intake Total 180 Balance 180 Intake: Oral 180 Other: # Voids 2 4 2 # Bowel Movements 1 - Labs CBC & Chem 7: 02/24/23 04:41 02/24/23 04:41 Labs: Abnormal Lab Results - Last 24 Hours (Table) 02/24/23 02/24/23 Range/Units 04:41 04:41 WBC 3.07 L (4.50-10.00) X 10*3/uL RBC 3.67 L (4.10-5.20) X 10*6/uL Hct 36.7 L (37.2-46.3) % MCV 100.0 H (80.0-97.0) fL MCH 33.0 H (27.0-32.0) pg RDW 15.9 H (11.5-14.5) % Plt Count 51 L (140-440) X 10*3/uL Neutrophils # 1.49 L (1.80-7.70) X 10*3/uL Immature Plt Fraction 8.7 H (1.1-6.1) % BUN 7.4 L (9.0-27.0) mg/dL BUN/Creatinine Ratio 10.57 L (12.00-20.00) Ratio Calcium 8.6 L (8.7-10.3) mg/dL
[2023-02-25 07:25] VITALS: BP 131/85; PULSE 71; RESP 17; TEMP 98.3
[2023-02-25] MEDS: hydrALAZINE HCL 50 MG TAB PO SCH (08:26)
[2023-02-25] MEDS: METOPROLOL TARTRATE 25 MG TAB PO SCH (08:26)
[2023-02-25] MEDS: THIAMINE 100 MG TAB PO SCH (08:26)
[2023-02-25] MEDS: NALTREXONE HCL 50 MG TAB PO SCH (08:26)
[2023-02-25] MEDS: SERTRALINE 50 MG TAB PO SCH (08:26)
[2023-02-25] MEDS: ASPIRIN 81 MG PO SCH (08:26)
--- NOTE | 2023-02-26 06:41 | P.DS ---
Providers Date of admission: 02/23/23 02:05 Expected date of discharge: 02/25/23 Attending physician: Heather Fontaine Consults: 02/23/23 02:03 Consult Physician Routine Consulting Provider: Nils Madrid Consult Reason/Comments: Alcohol withdrawal syndrome Do you want consulting provider notified?: Yes Primary care physician: Stated None Hospital Course: Final diagnosis Acute alcohol withdrawal and delirium tremens History of continued alcohol abuse Hypertension Anxiety/depression with PTSD GI prophylaxis DVT prophylaxis Full code Discharge disposition Patient is being discharged in a stable condition with guarded prognosis to home . Patient will follow-up with [facility] care provider she has an appointment on March 03 that is new to establish in the outpatient setting upon discharge. Patient is to continue with awaiting all alcohol intake and highly recommend alcohol rehab or and [facility] follow-up. Total time taken is greater than 35 minutes. Hospital course This is a 67-year-old female who was recently admitted with alcohol intoxication with acute alcohol withdrawal being closely monitored on CIWA protocol. Patient was also evaluated by psychiatry with adjustments to medications made. Patient also continued on Librium taper and will continue short Librium taper on discharge. Patient was recently sober although relapsed and had been drinking for the last 2 weeks. Patient reports she's not interested in going to alcohol rehab and information was provided. Patient also instructed to follow-up with [facility] and also has a follow-up appointment with a new provider to establish as her primary care. Patient reports she cannot recall the name of but reports her appointment is for March 03. Currently no reports of chest pain, shortness of breath, or palpitations. Patient is afebrile. No reports of nausea or vomiting and patient is tolerating diet. Patient will be discharged today. Guarded prognosis and high risk for readmission due to noncompliance with follow-up and continued alcohol use. Physical exam: Gen: This is a 67-year-old female who is awake, alert and oriented 3, well- developed, well-nourished HEENT: Head is atraumatic, normocephalic. Pupils equal, round. Sclerae is anicteric. NECK: Supple. No JVD. No lymphadenopathy. No thyromegaly. LUNGS: Diminished breath sounds bilaterally with No wheezes or rhonchi. No intercostal retractions. HEART: Regular rate and rhythm. No murmur. ABDOMEN: Soft. Bowel sounds are present. No masses. No tenderness. EXTREMITIES: No pedal edema. No calf tenderness. NEUROLOGICAL: Patient is awake, alert and oriented x3. Cranial nerves 2 through 12 are grossly intact. Please refer to medication reconciliation sheet for a list of medications. The impression and plan of care has been dictated by Linda Joshua, Nurse Practitioner as directed. Dr. Zhen MD I have performed a history and examination and MDM of this patient, discussed the same with the dictator, and agree with the dictator's assessment and plan as written ,documented as a scribe. Based on total visit time, I have performed more than 50% of the visit. Patient Condition at Discharge: Stable Plan - Discharge Summary Discharge Rx Participant: No New Discharge Prescriptions: New chlordiazePOXIDE HCl [Librium] 10 mg PO TID #6 cap Multivitamins, Thera [Multivitamin (formulary)] 1 each PO DAILY@1200 #30 tab Folic Acid 1 mg PO DAILY@1200 #30 tab Naltrexone HCl [Revia] 50 mg PO DAILY 30 Days #30 tab Sertraline [Zoloft] 50 mg PO DAILY 30 Days #30 tab Continue Acetaminophen Tab [Tylenol] 1,000 mg PO Q6H PRN PRN Reason: Pain Or Fever > 100.5 hydrALAZINE HCL [Apresoline] 50 mg PO BID #60 tab Aspirin 81 mg PO DAILY #30 tab Omeprazole 20 mg PO DAILY PRN PRN Reason: gerds Metoprolol Tartrate [Lopressor] 25 mg PO BID #60 tab Thiamine [Vitamin B-1] 100 mg PO DAILY #30 tablet Discontinued Sertraline [Zoloft] 25 mg PO DAILY #30 tab diazePAM [Valium] 5 mg PO BID PRN #4 tab PRN Reason: Spasms Discharge Medication List Acetaminophen Tab [Tylenol] 1,000 mg PO Q6H PRN 01/30/23 [History] Omeprazole 20 mg PO DAILY PRN 01/30/23 [History] Aspirin 81 mg PO DAILY #30 tab 02/02/23 [Rx] Metoprolol Tartrate [Lopressor] 25 mg PO BID #60 tab 02/02/23 [Rx] Thiamine [Vitamin B-1] 100 mg PO DAILY #30 tablet 02/02/23 [Rx] hydrALAZINE HCL [Apresoline] 50 mg PO BID #60 tab 02/02/23 [Rx] Folic Acid 1 mg PO DAILY@1200 #30 tab 02/25/23 [Rx] Multivitamins, Thera [Multivitamin (formulary)] 1 each PO DAILY@1200 #30 tab 02/25/23 [Rx] Naltrexone HCl [Revia] 50 mg PO DAILY 30 Days #30 tab 02/25/23 [Rx] Sertraline [Zoloft] 50 mg PO DAILY 30 Days #30 tab 02/25/23 [Rx] chlordiazePOXIDE HCl [Librium] 10 mg PO TID #6 cap 02/25/23 [Rx] Follow up Appointment(s)/Referral(s): Imelda Levy MD [STAFF PHYSICIAN] - 1 Week (office stated to have patient call for appointment.) [facility] [NON-STAFF] - 1 Week Patient Instructions/Handouts: Alcohol Withdrawal (DC) Activity/Diet/Wound Care/Special Instructions: Activity Limited until follow-up Follow-up with primary care provider to establish Follow-up with [facility] and attend AA meetings Continue taking Librium taper until finished Avoid all alcohol intake Discharge/Stand Alone Forms: AA Meetings [facility] Outpatient Counseling, In Substance Abuse Facilities Discharge Disposition: HOME SELF-CARE
== END 2023-02-25 11:54 | disposition home or self-care (01) | DRG 897 ==
LOC: EC 22:55 → 4SSUR 02-23 02:05
PROVIDERS: ADMIT Hospitalist; ATTEND Hospitalist
DX: F10.231 Alcohol dependence with withdrawal delirium (principal); F32.A Depression, unspecified; F43.10 Post-traumatic stress disorder, unspecified; F41.9 Anxiety disorder, unspecified; I10 Essential (primary) hypertension; Y90.6 Blood alcohol level of 120-199 mg/100 ml; Z79.82 Long term (current) use of aspirin; Z90.710 Acquired absence of both cervix and uterus; Z91.199 Patient's noncompliance with other medical treatment and regimen due to unspecified reason
CPT/HCPCS: 36415; 80048; 80053; 80320; 85025; 93005; 96361; 96374; 96375; 96376; 99285

== ENCOUNTER 2023-03-17 09:14 | Inpatient (IN) | payer MEDICARE, OTHER ==
[2023-03-17] MEDS ORDERED: SODIUM CHLORIDE 0.9% 1,000 ML IV ONE (09:37)
[2023-03-17] MEDS ORDERED: SODIUM CHLORIDE 0.9% 500 ML 500 ML IV ONE (09:37)
[2023-03-17] MEDS ORDERED: ONDANSETRON 4 MG/2 ML VIAL IVP STA (09:37)
[2023-03-17] MEDS ORDERED: LORazepam 2 MG/ML INJ IV STA ×2 (09:39→11:20)
[2023-03-17] MEDS ORDERED: SODIUM CHLORIDE 0.9% 1,000 ML with MVI, ADULT NO.4 WITH VIT K 10 ML, THIAMINE 100 MG, F... IV ONE ×4 (10:00)
[2023-03-17 10:33] LABS: Basophils % (A) 0 %; Eosinophils % (A) 0 %; HCT 42.6 % (34.0-46.0); HGB 14.6 gm/dL (11.4-16.0); Lymphocytes # (A) 1.2 k/uL (1.0-4.8); Lymphocytes % (A) 14 %; MCHC 34.4 g/dL (31.0-37.0); MCV 95.9 fL (80.0-100.0); Mean Platelet Volume 7.7; Monocytes # (A) 0.2 k/uL (0-1.0); Monocytes % (A) 2 %; Neutrophils # (A) 6.9 k/uL (1.3-7.7); Neutrophils % (A) 82 %; Platelet Count 187 k/uL (150-450); RBC 4.44 m/uL (3.80-5.40); WBC 8.4 k/uL (3.8-10.6)
[2023-03-17 10:47] LABS: ALT 32 U/L (4-34); AST 41 U/L (14-36); African American GFR (CKD) >90 (>60 ml/min/1.73 sqM); Albumin 4.7 g/dL (3.5-5.0); Alcohol 60 mg/dL; Alkaline Phosphatase 66 U/L (38-126); Anion Gap 21 mmol/L; Blood Urea Nitrogen 10 mg/dL (7-17); Calcium 9.5 mg/dL (8.4-10.2); Carbon Dioxide 18 mmol/L (22-30); Chloride 103 mmol/L (98-107); Glucose 186 mg/dL (74-99); Magnesium 1.1 mg/dL (1.6-2.3); Non-African American GFR(CKD) >90 (>60 ml/min/1.73 sqM); Potassium 3.5 mmol/L (3.5-5.1); Sodium 142 mmol/L (137-145); Total Bilirubin 0.6 mg/dL (0.2-1.3); Total Protein 8.1 g/dL (6.3-8.2)
--- NOTE | 2023-03-17 11:16 | ED ---
General Adult HPI - General Chief complaint: Alcohol Stated complaint: ETOH withdraw Time Seen by Provider: 03/17/23 09:30 Source: patient, family, RN notes reviewed, old records reviewed Mode of arrival: wheelchair Limitations: no limitations - History of Present Illness Initial comments: This is a 67-year-old female presents emergency department stating that she's withdrawing from alcohol. Patient states she's been trying to cut back over the last 2 days and the laceration she drank was at 1 AM she was drinking some mouthwash. Patient complains of shakes and vomiting and diarrhea. Patient denies any headache patient denies any chest pain difficult breathing shortness of breath per patient denies any back pain. Patient denies any recent fever chills or cough. - Related Data Home Medications Medication Instructions Recorded Confirmed Acetaminophen Tab [Tylenol] 1,000 mg PO Q6H PRN 01/30/23 03/17/23 Omeprazole 20 mg PO DAILY PRN 01/30/23 03/17/23 Multivitamins, Thera [Multivitamin 1 tab PO DAILY@1200 03/17/23 03/17/23 (formulary)] Previous Rx's Medication Instructions Recorded Aspirin 81 mg PO DAILY #30 tab 02/02/23 Metoprolol Tartrate [Lopressor] 25 mg PO BID #60 tab 02/02/23 Thiamine [Vitamin B-1] 100 mg PO DAILY #30 tablet 02/02/23 hydrALAZINE HCL [Apresoline] 50 mg PO BID #60 tab 02/02/23 Folic Acid 1 mg PO DAILY@1200 #30 tab 02/25/23 Naltrexone HCl [Revia] 50 mg PO DAILY 30 Days #30 tab 02/25/23 Sertraline [Zoloft] 50 mg PO DAILY 30 Days #30 tab 02/25/23 chlordiazePOXIDE HCl [Librium] 10 mg PO TID #6 cap 02/25/23 Allergies Allergy/AdvReac Type Severity Reaction Status Date / Time clonazepam [From Klonopin] AdvReac Severe extreme Verified 03/17/23 11:31 drop in Blood pressure prochlorperazine AdvReac Severe Suicidal Verified 03/17/23 11:31 [From Compazine] ideations diphenhydramine AdvReac aggresive Verified 03/17/23 11:31 [From Benadryl] behavior, aggitation fentanyl AdvReac Nausea & Verified 03/17/23 11:31 Vomiting hydrocodone [From [place]] AdvReac Nausea & Verified 03/17/23 11:31 Vomiting hydromorphone [From Dilaudid] AdvReac Nausea & Verified 03/17/23 11:31 Vomiting morphine AdvReac Nausea & Verified 03/17/23 11:31 Vomiting oxycodone [From Percocet] AdvReac Nausea & Verified 03/17/23 11:31 Vomiting Review of Systems ROS Statement: Those systems with pertinent positive or pertinent negative responses have been documented in the HPI. ROS Other: All systems not noted in ROS Statement are negative. Past Medical History Past Medical History: Hypertension, Pneumonia Additional Past Medical History / Comment(s): Alcohol withdrawal History of Any Multi-Drug Resistant Organisms: None Reported Past Surgical History: Cholecystectomy, Hysterectomy, Tonsillectomy Past Anesthesia/Blood Transfusion Reactions: No Reported Reaction Past Psychological History: Anxiety, Depression, PTSD Smoking Status: Never smoker Past Alcohol Use History: Heavy Past Drug Use History: None Reported - Past Family History Mother Family Medical History: Dementia Sister(s) Family Medical History: Cancer Brother(s) Family Medical History: Cancer General Exam - General Exam Comments Initial Comments: GENERAL: Patient is well-developed and well-nourished. Patient is nontoxic and well- hydrated and is in mild distress. ENT: Neck is soft and supple. No significant lymphadenopathy is noted. Oropharynx is clear. Moist mucous membranes. Neck has full range of motion without eliciting any pain. EYES: The sclera were anicteric and conjunctiva were pink and moist. Extraocular movements were intact and pupils were equal round and reactive to light. Eyelids were unremarkable. PULMONARY: Unlabored respirations. Good breath sounds bilaterally. No audible rales rhonchi or wheezing was noted. CARDIOVASCULAR: Patient is tachycardic at about 100 beats a minute ABDOMEN: Soft and nontender with normal bowel sounds. SKIN: Skin is clear with no lesions or rashes and otherwise unremarkable. NEUROLOGIC: Patient is alert and oriented x3. Cranial nerves II through XII are grossly intact. Motor and sensory are also intact. Normal speech, volume and content. Symmetrical smile. MUSCULOSKELETAL: Normal extremities with adequate strength and full range of motion. No lower extremity swelling or edema. No calf tenderness. LYMPHATICS: No significant lymphadenopathy is noted PSYCHIATRIC: Normal psychiatric evaluation. 6640 Limitations: no limitations Course Vital Signs 03/17/23 03/17/23 03/17/23 09:18 10:08 10:53 Temperature 97.5 F L Pulse Rate 99 96 104 H Respiratory 18 22 22 Rate Blood Pressure 182/124 181/122 176/97 O2 Sat by Pulse 98 96 95 Oximetry 03/17/23 12:12 Temperature Pulse Rate 99 Respiratory 20 Rate Blood Pressure 167/94 O2 Sat by Pulse 96 Oximetry Medical Decision Making - Medical Decision Making EKG shows sinus rhythm at 80 bpm UT interval 200 white QRS 75 Q-T intervals 408 QTC is 454. Patient's EKG shows no ST segment elevation or depression. Was pt. sent in by a medical professional or institution (, PA, SOFTWARE TEAM LEADER, urgent care, hospital, or detention...) When possible be specific @ -No Did you speak to anyone other than the patient for history (EMS, parent, family, police, friend...)? What history was obtained from this source @ -No Did you review nursing and triage notes (agree or disagree)? Why? @ -I reviewed and agree with nursing and triage notes Were old charts reviewed (outside hosp., previous admission, EMS record, old EKG, old radiological studies, urgent care reports/EKG's, detention records)? Report findings @ -No old charts were reviewed Differential Diagnosis (chest pain, altered mental status, abdominal pain women, abdominal pain men, vaginal bleeding, weakness, fever, dyspnea, syncope, heada nevin, dizziness, GI bleed, back pain, seizure, CVA, palpatations, mental health, musculoskeletal)? @ -Alcohol withdrawal, alcohol intoxication, drug reaction, dehydration, gastroenteritis this is not an all inclusive list EKG interpreted by me (3pts min.). @ -As above X-rays interpreted by me (1pt min.). @ -Chest x-ray shows no acute abnormality CT interpreted by me (1pt min.). @ -None done U/S interpreted by me (1pt. min.). @ -None done What testing was considered but not performed or refused? (CT, X-rays, U/S, labs)? Why? @ -None What meds were considered but not given or refused? Why? @ -None Did you discuss the management of the patient with other professionals (professionals i.e. , PA, SOFTWARE TEAM LEADER, lab, RT, psych nurse, social services manager, electrician third, teacher, air defense artillery officer, field case manager)? Give summary @ -I spoke with Dr. smyth he agreed to admit the patient Was smoking cessation discussed for >3mins.? @ -No Was critical care preformed (if so, how long)? @ -35 minutes Were there social determinants of health that impacted care today? How? (Homelessness, low income, unemployed, alcoholism, drug addiction, transpo rtation, low edu. Level, literacy, decrease access to med. care, usp, rehab)? @ -Alcoholism Was there de-escalation of care discussed even if they declined (Discuss DNR or withdrawal of care, Hospice)? DNR status @ -No What co-morbidities impacted this encounter? (DM, HTN, Smoking, COPD, CAD, Cancer, CVA, ARF, Chemo, Hep., AIDS, mental health diagnosis, sleep apnea, morbid obesity)? @ -None Was patient admitted / discharged? Hospital course, mention meds given and route, prescriptions, significant lab abnormalities, going to OR and other pertinent info. @ -Patient received a liter and half of fluids and then a banana bag. Patient then received magnesium because she was very little on magnesium. Patient got some Zofran for the vomiting. Patient got Ativan for the withdrawal symptoms. Undiagnosed new problem with uncertain prognosis? @ -No Drug Therapy requiring intensive monitoring for toxicity (Heparin, Nitro, Insulin, Cardizem)? @ -No Were any procedures done? @ -No Diagnosis/symptom? @ -Alcohol withdrawal Acute, or Chronic, or Acute on Chronic? @ -Acute Uncomplicated (without systemic symptoms) or Complicated (systemic symptoms)? @ -Complicated Side effects of treatment? @ -No Exacerbation, Progression, or Severe Exacerbation? @ -No Poses a threat to life or bodily function? How? (Chest pain, [place], [place], pneumonia, PE, COPD, DKA, ARF, appy, cholecystitis, CVA, Diverticulitis, Homicidal, Suicidal, threat to staff... and all critical care pts) @ -This could lead to delirium tremens and severe morbidity if not mortality - Lab Data Result diagrams: 03/17/23 10:09 03/17/23 10:09 Lab Results 03/17/23 03/17/23 03/17/23 Range/Units 10:09 10:09 10:09 WBC 8.4 (3.8-10.6) k/uL RBC 4.44 (3.80-5.40) m/uL Hgb 14.6 (11.4-16.0) gm/dL Hct 42.6 (34.0-46.0) % MCV 95.9 (80.0-100.0) fL MCH 33.0 (25.0-35.0) pg MCHC 34.4 (31.0-37.0) g/dL RDW 15.0 (11.5-15.5) % Plt Count 187 D (150-450) k/uL MPV 7.7 Neutrophils % 82 % Lymphocytes % 14 % Monocytes % 2 % Eosinophils % 0 % Basophils % 0 % Neutrophils # 6.9 (1.3-7.7) k/uL Lymphocytes # 1.2 (1.0-4.8) k/uL Monocytes # 0.2 (0-1.0) k/uL Eosinophils # 0.0 (0-0.7) k/uL Basophils # 0.0 (0-0.2) k/uL Sodium 142 (137-145) mmol/L Potassium 3.5 (3.5-5.1) mmol/L Chloride 103 (98-107) mmol/L Carbon Dioxide 18 L (22-30) mmol/L Anion Gap 21 mmol/L BUN 10 (7-17) mg/dL Creatinine 0.56 (0.52-1.04) mg/dL Est GFR (CKD-EPI)AfAm >90 (>60 ml/min/1.73 sqM) Est GFR (CKD-EPI)NonAf >90 (>60 ml/min/1.73 sqM) Glucose 186 H (74-99) mg/dL Plasma Lactic Acid Mark 8.1 H* (0.7-2.0) mmol/L Calcium 9.5 (8.4-10.2) mg/dL Magnesium 1.1 L (1.6-2.3) mg/dL Total Bilirubin 0.6 (0.2-1.3) mg/dL AST 41 H (14-36) U/L ALT 32 (4-34) U/L Alkaline Phosphatase 66 (38-126) U/L Total Protein 8.1 (6.3-8.2) g/dL Albumin 4.7 (3.5-5.0) g/dL Serum Alcohol 60 mg/dL Disposition Clinical Impression: Hypomagnesemia, Alcohol withdrawal Disposition: ADMITTED IP TO THIS HOSP Referrals: Imelda Levy MD [Primary Care Provider] - 1-2 days Time of Disposition: 12:26
[2023-03-17] MEDS: MAGNESIUM SULFATE-D5W PMX 1 GM in DEXTROSE/WATER 1 100ML.BAG IVPB SCH ×4 (12:11→20:41)
[2023-03-17] MEDS ORDERED: THIAMINE 100 MG/ML 2 ML VIAL IM STA (12:20)
[2023-03-17] MEDS ORDERED: LORazepam 2 MG/ML INJ IV PRN (12:20)
--- NOTE | 2023-03-17 12:41 | XR ---
EXAMINATION TYPE: XR chest 2V DATE OF EXAM: 03/17/2023 COMPARISON: NONE TECHNIQUE: PA and lateral views submitted. HISTORY: elevated lactic acid FINDINGS: The lungs are clear and there is no pneumothorax, pleural effusion, or focal pneumonia. Heart size normal and no overt failure. Osseous structures demonstrate hypertrophic and degenerative changes of the spine. IMPRESSION: 1. No acute process.
[2023-03-17 16:37] LABS: Appearance,Urine Clear (Clear); Bilirubin,Urine Negative (Negative); Blood,Urine Negative (Negative); Color,Urine Yellow; Glucose,Urine (UA) Negative (Negative); Ketones,Urine 1+ (Negative); Leukocyte Esterase,Urine Negative (Negative); Nitrite,Urine Negative (Negative); PH, Urine 6.5 (5.0-8.0); Protein,Urine Negative (Negative); Specific Gravity,Urine 1.013 (1.001-1.035); Urobilinogen,Urine <2.0 mg/dL (<2.0)
[2023-03-17] MEDS ORDERED: hydrALAZINE HCL 20 MG/ML 1 ML VIAL IVP PRN (19:13)
[2023-03-17] MEDS ORDERED: diazePAM 5 MG TAB PO STA (19:17)
[2023-03-17] MEDS ORDERED: Potassium Replacement Protocol 1 EACH MISC MISCELLANE PRN (19:20)
[2023-03-17] MEDS ORDERED: Magnesium Replacement Protocol 1 EACH MISC MISCELLANE PRN (19:20)
--- NOTE | 2023-03-17 19:22 | P.HPIM ---
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 She denies abdominal pain She denies any urinary symptoms like dysuria or urgency. She denies headache weakness numbness or blurred vision. No slurred speech. She denies chest pain dyspnea or coughing. She denies alcohol or illicit drugs. She denies any signs and symptoms of depression, she denies suicidal ideation. She states that she check her blood pressure at home it was high at 177/110 and also her heart rate was slightly elevated, here in the emergency room was 105. Patient is afebrile and stress of Vitas looks stable. Review of Systems Review of systems CONSTITUTIONAL: No fever, no malaise, no fatigue. HEENT: No recent visual problems or hearing problems. Denied any sore throat. CARDIOVASCULAR: No orthopnea, PND, no palpitations, no syncope. PULMONARY: No shortness of breath, no cough, no hemoptysis. GASTROINTESTINAL: No diarrhea, no nausea, no vomiting, no abdominal pain. Normoactive bowel sounds. NEUROLOGICAL: No headaches, no weakness, no numbness. HEMATOLOGICAL: Denies any bleeding or petechiae. GENITOURINARY: Denies any burning micturition, frequency, or urgency. MUSCULOSKELETAL/RHEUMATOLOGICAL: Denies any joint pain, swelling, or any muscle pain. ENDOCRINE: Denies any polyuria or polydipsia. Past Medical History Past Medical History: Hypertension, Pneumonia Additional Past Medical History / Comment(s): Alcohol withdrawal History of Any Multi-Drug Resistant Organisms: None Reported Past Surgical History: Cholecystectomy, Hysterectomy, Tonsillectomy Past Anesthesia/Blood Transfusion Reactions: No Reported Reaction Past Psychological History: Anxiety, Depression, PTSD Smoking Status: Never smoker Past Alcohol Use History: Heavy Past Drug Use History: None Reported - Past Family History Mother Family Medical History: Dementia Sister(s) Family Medical History: Cancer Brother(s) Family Medical History: Cancer Medications and Allergies Home Medications Medication Instructions Recorded Confirmed Type Acetaminophen Tab [Tylenol] 1,000 mg PO Q6H PRN 01/30/23 03/17/23 History Omeprazole 20 mg PO DAILY PRN 01/30/23 03/17/23 History Aspirin 81 mg PO DAILY #30 tab 02/02/23 03/17/23 Rx Metoprolol Tartrate [Lopressor] 25 mg PO BID #60 tab 02/02/23 03/17/23 Rx Thiamine [Vitamin B-1] 100 mg PO DAILY #30 tablet 02/02/23 03/17/23 Rx hydrALAZINE HCL [Apresoline] 50 mg PO BID #60 tab 02/02/23 03/17/23 Rx Folic Acid 1 mg PO DAILY@1200 #30 tab 02/25/23 03/17/23 Rx Naltrexone HCl [Revia] 50 mg PO DAILY 30 Days #30 tab 02/25/23 03/17/23 Rx Sertraline [Zoloft] 50 mg PO DAILY 30 Days #30 tab 02/25/23 03/17/23 Rx chlordiazePOXIDE HCl [Librium] 10 mg PO TID #6 cap 02/25/23 03/17/23 Rx Multivitamins, Thera [Multivitamin 1 tab PO DAILY@1200 03/17/23 03/17/23 History (formulary)] Allergies Allergy/AdvReac Type Severity Reaction Status Date / Time clonazepam [From Klonopin] AdvReac Severe extreme Verified 03/17/23 11:31 drop in Blood pressure prochlorperazine AdvReac Severe Suicidal Verified 03/17/23 11:31 [From Compazine] ideations diphenhydramine AdvReac aggresive Verified 03/17/23 11:31 [From Benadryl] behavior, aggitation fentanyl AdvReac Nausea & Verified 03/17/23 11:31 Vomiting hydrocodone [From [place]] AdvReac Nausea & Verified 03/17/23 11:31 Vomiting hydromorphone [From Dilaudid] AdvReac Nausea & Verified 03/17/23 11:31 Vomiting morphine AdvReac Nausea & Verified 03/17/23 11:31 Vomiting oxycodone [From Percocet] AdvReac Nausea & Verified 05/30/23 11:31 Vomiting Physical Exam Vitals: Vital Signs Temp Pulse Resp BP Pulse Ox 03/17/23 12:12 99 20 167/94 96 03/17/23 10:53 104 H 22 176/97 95 03/17/23 10:08 96 22 181/122 96 03/17/23 09:18 97.5 F L 99 18 182/124 98 Intake and Output 03/16/23 03/17/23 03/17/23 22:59 06:59 14:59 Other: Weight 72.575 kg GENERAL: The patient is alert and oriented x3, not in any acute distress. Well developed, well nourished. HEENT: Pupils are round and equally reacting to light. EOMI. No scleral icterus. No conjunctival pallor. Normocephalic, atraumatic. No pharyngeal erythema. No thyromegaly. CARDIOVASCULAR: S1 and S2 present. No murmurs, rubs, or gallops. PULMONARY: Chest is clear to auscultation, no wheezing . no crackles. ABDOMEN: Soft, nontender, nondistended, normoactive bowel sounds. No palpable organomegaly. MUSCULOSKELETAL: No joint swelling or deformity. EXTREMITIES: No cyanosis, clubbing, or pedal edema. NEUROLOGICAL: Gross neurological examination did not reveal any focal deficits. SKIN: No rashes. no petechiae. Results CBC & Chem 7: 03/17/23 10:09 03/17/23 10:09 Labs: Abnormal Lab Results - Last 24 Hours (Table) 03/17/23 03/17/23 Range/Units 10:09 10:09 Carbon Dioxide 18 L (22-30) mmol/L Glucose 186 H (74-99) mg/dL Plasma Lactic Acid Mark 8.1 H* (0.7-2.0) mmol/L Magnesium 1.1 L (1.6-2.3) mg/dL AST 41 H (14-36) U/L Assessment and Plan Assessment: Alcohol use disorder with alcohol withdrawal Hypertension, uncontrolled on admission Alcoholic gastroenteritis History of depression, not an active issue Plan: Continue with CIWA protocol Continue with thiamine twice a day Trazodone 50 mg at bedtime for insomnia and to help her sleep At hydralazine for hypertension as needed. At [facility] monitor electrolytes and replace per protocol continue with gentle hydration Labs and medication were reviewed.. Continue same treatment. Continue with symptomatic treatment. Resume home medication. Monitor labs and vitals. DVT and GI prophylaxis. Further recommendations as per clinical course of the patient DVT prophylaxis: Subcutaneous heparin GI Prophylaxis: Pepcid PT/OT: Pending bridge ironworker helper consult to provide resources for alcohol withdrawal Prognosis is guarded
[2023-03-17] MEDS: amLODIPine 5 MG TAB PO SCH (20:43)
[2023-03-17] MEDS: THIAMINE 100 MG/ML 2 ML VIAL IVP SCH ×2 (20:47→20:48)
[2023-03-17] MEDS: FAMOTIDINE 20 MG/2 ML VIAL IV SCH (20:50)
[2023-03-17] MEDS: HEPARIN SODIUM,PORCINE/PF 5,000 UNIT/0.5 ML SYRINGE SQ SCH (20:51)
[2023-03-17] MEDS ORDERED: traZODone HCL 50 MG TAB PO SCH (21:00)
[2023-03-18] MEDS: SODIUM CHLORIDE 0.9% 1,000 ML IV SCH ×3 (01:29→21:34)
[2023-03-18] MEDS ORDERED: THIAMINE 100 MG TAB PO SCH (09:00)
[2023-03-18] MEDS: ONDANSETRON 4 MG/2 ML VIAL IVP PRN (09:13)
[2023-03-18] MEDS: HEPARIN SODIUM,PORCINE/PF 5,000 UNIT/0.5 ML SYRINGE SQ SCH ×2 (09:13→20:05)
[2023-03-18] MEDS: FAMOTIDINE 20 MG/2 ML VIAL IV SCH (09:14)
[2023-03-18] MEDS: amLODIPine 5 MG TAB PO SCH (09:14)
[2023-03-18] MEDS ORDERED: ACETAMINOPHEN TAB 500 MG TAB PO PRN (11:40)
[2023-03-18] MEDS: NALTREXONE HCL 50 MG TAB PO SCH (13:38)
[2023-03-18] MEDS: SERTRALINE 50 MG TAB PO SCH (13:38)
[2023-03-18] MEDS: FOLIC ACID 1 MG TAB PO SCH (13:39)
[2023-03-18] MEDS: MULTIVITAMINS, THERA 1 EACH TAB PO SCH (13:39)
[2023-03-18 13:54] LABS: Basophils # (A) 0.02 X 10*3/uL (0.00-0.10); Basophils % (A) 0.5 %; Eosinophils # (A) 0.02 X 10*3/uL (0.04-0.35); Eosinophils % (A) 0.5 %; HCT 35.7 % (37.2-46.3); HGB 11.9 g/dL (12.0-15.0); Immature Grans, Automated 0.2 %; Lymphocytes # (A) 1.52 X 10*3/uL (0.90-5.00); Lymphocytes % (A) 37.7 %; MCH 31.8 pg (27.0-32.0); MCHC 33.3 g/dL (32.0-37.0); MCV 95.5 fL (80.0-97.0); Mean Platelet Volume 10.3 fL (9.5-12.2); Monocytes # (A) 0.32 X 10*3/uL (0.20-1.00); Monocytes % (A) 7.9 %; NRBC Per 100 WBC 0 /100 WBCS (0.0-0.0); Neutrophils # (A) 2.14 X 10*3/uL (1.80-7.70); Neutrophils % (A) 53.2 %; Platelet Count 118 X 10*3/uL (140-440); RBC 3.74 X 10*6/uL (4.10-5.20); RDW 14.9 % (11.5-14.5); WBC 4.03 X 10*3/uL (4.50-10.00)
[2023-03-18 14:49] LABS: African American GFR (CKD) 105.4 (60.0-200.0); Anion Gap 14.2 mmol/L (10.00-18.00); BUN/Creat Ratio 8.86 Ratio (12.00-20.00); Blood Urea Nitrogen 6.2 mg/dL (9.0-27.0); Calcium 8.3 mg/dL (8.7-10.3); Carbon Dioxide 25.8 mmol/L (20.0-27.5); Non-African American GFR(CKD) 90.9 (60.0-200.0); Potassium 3.1 mmol/L (3.5-5.5)
[2023-03-18] MEDS ORDERED: Potassium Replacement Protocol 1 EACH MISC MISCELLANE PRN (14:56)
[2023-03-18] MEDS: POTASSIUM CHLORIDE ER 20 MEQ TAB.ER PO SCH (15:47)
[2023-03-18] MEDS: METOPROLOL TARTRATE 25 MG TAB PO SCH (20:05)
[2023-03-18] MEDS: hydrALAZINE HCL 50 MG TAB PO SCH (20:05)
[2023-03-18] MEDS: FAMOTIDINE 20 MG TAB PO SCH (20:06)
--- NOTE | 2023-03-18 21:25 | P.PN ---
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 She denies abdominal pain She denies any urinary symptoms like dysuria or urgency. She denies headache weakness numbness or blurred vision. No slurred speech. She denies chest pain dyspnea or coughing. She denies alcohol or illicit drugs. She denies any signs and symptoms of depression, she denies suicidal ideation. She states that she check her blood pressure at home it was high at 177/110 and also her heart rate was slightly elevated, here in the emergency room was 105. Patient is afebrile and stress of Vitas looks stable. Patient has unremarkable CBC, BMP, liver enzymes. Magnesium is low 1.1. Lactic acid elevated at 8.1 came back to normal at 1.8. Urine analysis is negative. From alcohol is slightly up at 60. Chest x-ray: No acute process EKG: Normal sinus rhythm at [address]-T changes 03/18/2023 Patient with minimal or no alcohol withdrawal symptoms. She remains on Librium standing dose. Possible discharge tomorrow if she remains stable She has some mild evidence of pancytopenia most likely secondary to rehydration and alcoholic effect on the bone marrow. Monitor labs tomorrow Low potassium replaced Patient reports falling about 2 months ago and she still have pain in the right lower chest posteriorly close to the vertebral column radiating anteriorly to the right breast. Patient follow up with her PCP Dr. jones who referred her for mammogram. However on exam breast examination looks normal with no deformity, no signs of inflammation, no discharge, no nodules, no right axillary lymphadenopathy (exam done after patient gave verbal consent and in the process of the bedside nurse Lawrence ) We don't order from x-ray, patient will require orthopedic team evaluation but this can be done once patient as this is a chronic pain for 2 months. Fluoroscopy for the patient to orthopedic service as an outpatient Plan discussed with patient and she is agreeable Objective - Vital Signs Vital signs: Vital Signs Temp 98.4 F 03/18/23 07:55 Pulse 81 03/18/23 07:55 Resp 18 03/18/23 07:55 BP 165/82 03/18/23 07:55 Pulse Ox 97 03/18/23 07:55 FiO2 Intake & Output 03/17/23 03/18/23 03/18/23 18:59 06:59 18:59 Weight 72.575 kg 65 kg Other: Voiding Method Toilet # Voids 1 - Exam GENERAL: The patient is alert and oriented x3, not in any acute distress. Well developed, well nourished. HEENT: Pupils are round and equally reacting to light. EOMI. No scleral icterus. No conjunctival pallor. Normocephalic, atraumatic. No pharyngeal erythema. No thyromegaly. CARDIOVASCULAR: S1 and S2 present. No murmurs, rubs, or gallops. -exam of the right breast: looks normal with no deformity, no signs of inflammation, no discharge, no nodules, no right axillary lymphadenopathy (exam done after patient gave verbal consent and in the process of the bedside nurse Lawrence ) PULMONARY: Chest is clear to auscultation, no wheezing . no crackles. ABDOMEN: Soft, nontender, nondistended, normoactive bowel sounds. No palpable organomegaly. -MUSCULOSKELETAL: No joint swelling or deformity. Point tenderness in the back close to the right lower chest cage close to the spine EXTREMITIES: No cyanosis, clubbing, or pedal edema. NEUROLOGICAL: Gross neurological examination did not reveal any focal deficits. SKIN: No rashes. no petechiae. - Labs CBC & Chem 7: 03/18/23 06:55 03/18/23 06:55 Labs: Abnormal Lab Results - Last 24 Hours (Table) 03/17/23 Range/Units 16:25 Urine Ketones 1+ H (Negative) Assessment and Plan Assessment: Alcohol use disorder with alcohol withdrawal, stable Mild pancytopenia secondary to alcoholic affect, follow-up as an outpatient Fall 2 months ago with persistent back pain Electrolytes abnormality with hyperkalemia Hypertension, uncontrolled on admission Alcoholic gastroenteritis, improved History of depression, not an active issue Plan: Continue with CIWA protocol Continue with thiamine twice a day Trazodone 50 mg at bedtime for insomnia and to help her sleep At hydralazine for hypertension as needed. Add Norvasc monitor electrolytes and replace per protocol Patient will need referral to orthopedic service which can be done as an outpatient for her chronic back pain Patient states she has mammogram with her PCP Dr. jones as an outpatient which is encouraged to follow up with that and she is agreeable Labs and medication were reviewed.. Continue same treatment. Continue with symptomatic treatment. Resume home medication. Monitor labs and vitals. DVT and GI prophylaxis. Further recommendations as per clinical course of the patient DVT prophylaxis: Subcutaneous heparin GI Prophylaxis: Pepcid track service worker consult to provide resources for alcohol withdrawal Prognosis is guarded possible discharge in 24-48 hours and she is agreeable
[2023-03-18] MEDS: THIAMINE 100 MG/ML 2 ML VIAL IVP SCH (21:32)
[2023-03-19 07:07] VITALS: RESP 17; TEMP 97.9
[2023-03-19] MEDS: HEPARIN SODIUM,PORCINE/PF 5,000 UNIT/0.5 ML SYRINGE SQ SCH (08:10)
[2023-03-19] MEDS: METOPROLOL TARTRATE 25 MG TAB PO SCH (08:11)
[2023-03-19] MEDS: hydrALAZINE HCL 50 MG TAB PO SCH (08:11)
[2023-03-19] MEDS: NALTREXONE HCL 50 MG TAB PO SCH (08:11)
[2023-03-19] MEDS: FAMOTIDINE 20 MG TAB PO SCH (08:11)
[2023-03-19] MEDS: SERTRALINE 50 MG TAB PO SCH (08:11)
[2023-03-19] MEDS: THIAMINE 100 MG/ML 2 ML VIAL IVP SCH (08:12)
[2023-03-19] MEDS: ONDANSETRON 4 MG/2 ML VIAL IVP PRN (08:12)
--- NOTE | 2023-03-19 08:54 | XR ---
EXAMINATION TYPE: XR ribs RT w pa chest xray DATE OF EXAM: 03/19/2023 COMPARISON: 03/17/2023 TECHNIQUE: PA and lateral views submitted. HISTORY: Right posterior rib pain FINDINGS: Left lower lobe subsegmental consolidation. Right lung clear. There is no pneumothorax or pleural eff usion. No interstitial edema. Heart size normal. Surgical clips right upper quadrant. There is subtle deformity of the posterior-lateral right eighth rib. IMPRESSION: 1. Findings suspicious for right sided posterior lateral minimally displaced rib fracture correlate w ith point tenderness. No pneumothorax. 2. Left basilar peripheral subsegmental consolidation now seen may be on the basis of atelectasis. Co rrelate clinically to exclude early infiltrate.
[2023-03-19] MEDS ORDERED: ASPIRIN 81 MG PO SCH (09:00)
[2023-03-19 10:55] LABS: Basophils # (A) 0.02 X 10*3/uL (0.00-0.10); Basophils % (A) 0.5 %; Eosinophils # (A) 0.08 X 10*3/uL (0.04-0.35); HCT 39.6 % (37.2-46.3); HGB 13.3 g/dL (12.0-15.0); Immature Grans, Automated 0.5 %; Lymphocytes % (A) 52.4 %; MCH 32.4 pg (27.0-32.0); MCHC 33.6 g/dL (32.0-37.0); MCV 96.4 fL (80.0-97.0); Monocytes # (A) 0.21 X 10*3/uL (0.20-1.00); Monocytes % (A) 5.2 %; NRBC Per 100 WBC 0 /100 WBCS (0.0-0.0); Neutrophils # (A) 1.58 X 10*3/uL (1.80-7.70); Neutrophils % (A) 39.4 %; Platelet Count 122 X 10*3/uL (140-440); RBC 4.11 X 10*6/uL (4.10-5.20); RDW 14.8 % (11.5-14.5); WBC 4.01 X 10*3/uL (4.50-10.00)
[2023-03-19 11:07] LABS: African American GFR (CKD) 105.4 (60.0-200.0); BUN/Creat Ratio 9.43 Ratio (12.00-20.00); Blood Urea Nitrogen 6.6 mg/dL (9.0-27.0); Calcium 9.1 mg/dL (8.7-10.3); Magnesium 1.7 mg/dL (1.5-2.4); Non-African American GFR(CKD) 90.9 (60.0-200.0); Potassium 3.9 mmol/L (3.5-5.5)
[2023-03-19 11:16] VITALS: BP 148/79; PULSE 71
[2023-03-19] MEDS ORDERED: amLODIPine 5 MG TAB PO SCH (11:30)
[2023-03-19] MEDS: SODIUM CHLORIDE 0.9% 1,000 ML IV SCH (12:33)
[2023-03-19] MEDS: MULTIVITAMINS, THERA 1 EACH TAB PO SCH (12:41)
[2023-03-19] MEDS: FOLIC ACID 1 MG TAB PO SCH (12:41)
--- NOTE | 2023-03-19 23:32 | P.DS ---
Providers Date of admission: 03/17/23 12:19 Attending physician: Rocky Delcid MD Primary care physician: Imelda [facility] Course: Diagnoses: Alcohol use disorder with alcohol withdrawal, stable Mild pancytopenia secondary to alcoholic affect, follow-up as an outpatient Fall 2 months ago with persistent back pain, she remembers stromal when she fell and x-ray showing right lower chest rib fracture Electrolytes abnormality with hyperkalemia Hypertension, uncontrolled on admission Alcoholic gastroenteritis, improved History of depression, not an active issue Hospital course: This is a pleasant 67 years old female with past medical history of hype rtension, depression Patient presents because she is alcoholic and she wants to quit drinking, she states she drinks about 1/5 of liquor every day and 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 Patient was admitted and treated with CIWA per protocol her CIWA score remains low more than 24 hours. While she was on Librium 3 times a day. Patient will be discharged with Librium taper, patient verbalized understanding and acceptance. Patient was counseled to avoid drinking alcohol and she agrees. Also she reports falling and hitting her lower chest posteriorly about 2 months ago since then she has pain in that area radiating to her right breast. Chest x-ray and rib x-rays showing mildly displaced right lower rib fracture. Patient treated symptomatically. Patient was counseled to avoid prolonged NSAIDs use with risks explained for her and she verbalized understanding and acceptance. She stated that usually she is still not controlled her pain. Patient however was referred to orthopedic outpatient with Dr. rose and she verbalized understanding and acceptance to follow up with him in one week as instructed. Blood pressure was mildly elevated. Patient has metoprolol and hydralazine at home and she does not get prescription. Norvasc 5 mg added with recommendation for outpatient follow-up and she agrees as well. Patient today was walking in the hallway with no problem. Chest good appetite and she denies any other new complaints. Patient is agreeable to go home today. Problems and management plan were discussed with the patient and he verbalized understanding and acceptance Patient was found stable and can be discharged home in guarded prognosis however he needs follow-up as an outpatient. Patient was instructed to follow up with PCP Dr. jones within one week and patient agrees Physical exam Gen: patient is a AAOx3, no distress CVS: S1-S2, RRR, no murmur Lungs: B/L CTA, no wheezing Abdomen: soft, no distention, no tenderness, positive bowel sounds Extremity: no leg edema or induration Time spent more than 35 minutes Patient Condition at Discharge: Good Plan - Discharge Summary Discharge Rx Participant: Yes New Discharge Prescriptions: New chlordiazePOXIDE HCl [Librium] 10 mg PO HS 2 Days #3 capsule amLODIPine [Norvasc] 5 mg PO DAILY #30 tab Continue Acetaminophen Tab [Tylenol] 1,000 mg PO Q6H PRN PRN Reason: Pain Or Fever > 100.5 hydrALAZINE HCL [Apresoline] 50 mg PO BID #60 tab Aspirin 81 mg PO DAILY #30 tab Omeprazole 20 mg PO DAILY PRN PRN Reason: gerds Metoprolol Tartrate [Lopressor] 25 mg PO BID #60 tab Thiamine [Vitamin B-1] 100 mg PO DAILY #30 tablet Folic Acid 1 mg PO DAILY@1200 #30 tab Naltrexone HCl [Revia] 50 mg PO DAILY 30 Days #30 tab Sertraline [Zoloft] 50 mg PO DAILY 30 Days #30 tab Multivitamins, Thera [Multivitamin (formulary)] 1 tab PO DAILY@1200 Discontinued chlordiazePOXIDE HCl [Librium] 10 mg PO TID #6 cap Discharge Medication List Acetaminophen Tab [Tylenol] 1,000 mg PO Q6H PRN 01/30/23 [History] Omeprazole 20 mg PO DAILY PRN 01/30/23 [History] Aspirin 81 mg PO DAILY #30 tab 02/02/23 [Rx] Metoprolol Tartrate [Lopressor] 25 mg PO BID #60 tab 02/02/23 [Rx] Thiamine [Vitamin B-1] 100 mg PO DAILY #30 tablet 02/02/23 [Rx] hydrALAZINE HCL [Apresoline] 50 mg PO BID #60 tab 02/02/23 [Rx] Folic Acid 1 mg PO DAILY@1200 #30 tab 02/25/23 [Rx] Naltrexone HCl [Revia] 50 mg PO DAILY 30 Days #30 tab 02/25/23 [Rx] Sertraline [Zoloft] 50 mg PO DAILY 30 Days #30 tab 02/25/23 [Rx] Multivitamins, Thera [Multivitamin (formulary)] 1 tab PO DAILY@1200 03/17/23 [History] amLODIPine [Norvasc] 5 mg PO DAILY #30 tab 03/19/23 [Rx] chlordiazePOXIDE HCl [Librium] 10 mg PO HS 2 Days #3 capsule 03/19/23 [Rx] Follow up Appointment(s)/Referral(s): Greg Rose DO [Doctor of Osteopathic Medicine] - 04/10/23 1:00 pm ( is who you will see they will mail you a packet please fill out and bring it in. Orthopedic doctor for fall 2 months ago with persistent back pain. For fall 2 months ago with persistent back pain.) Imelda Levy MD [Primary Care Provider] - 03/27/23 2:45 pm Patient Instructions/Handouts: Chlordiazepoxide (By mouth), Amlodipine (By mouth), Alcohol Withdrawal (DC) Activity/Diet/Wound Care/Special Instructions: regular diet activity is restricted till you see your doctor Discharge/Stand Alone Forms: AA Meetings [place], [facility] Resources, Outpatient Counseling, In Substance Abuse Facilities Discharge Disposition: HOME SELF-CARE
== END 2023-03-19 13:08 | disposition home or self-care (01) | DRG 897 ==
LOC: EC 09:14 → 5NMEDONC 12:19
PROVIDERS: ADMIT Internal Medicine; ATTEND Internal Medicine
DX: F10.239 Alcohol dependence with withdrawal, unspecified (principal); K52.1 Toxic gastroenteritis and colitis; D61.818 Other pancytopenia; T51.0X1A Toxic effect of ethanol, accidental (unintentional), initial encounter; F10.229 Alcohol dependence with intoxication, unspecified; E83.42 Hypomagnesemia; E86.0 Dehydration; Y90.3 Blood alcohol level of 60-79 mg/100 ml; I10 Essential (primary) hypertension; G89.29 Other chronic pain; F32.A Depression, unspecified; F43.10 Post-traumatic stress disorder, unspecified; G47.00 Insomnia, unspecified; Z79.82 Long term (current) use of aspirin; Z79.899 Other long term (current) drug therapy; Z88.5 Allergy status to narcotic agent; Z88.8 Allergy status to other drugs, medicaments and biological substances; W19.XXXA Unspecified fall, initial encounter
CPT/HCPCS: 36415; 71046; 80048; 80053; 80320; 81003; 83605; 83735; 85025; 93005; 96361; 96365; 96366; 96368; 96372; 96375; 96376; 99291

== ENCOUNTER 2023-04-01 22:41 | Emergency (ER) | payer MEDICARE, OTHER ==
[2023-04-01 23:15] VITALS: RESP 18; TEMP 98.3
[2023-04-02] MEDS ORDERED: ONDANSETRON ODT 4 MG TAB PO STA (00:23)
[2023-04-02] MEDS ORDERED: KETOROLAC 15 MG/ML 1 ML VIAL IM STA (00:23)
[2023-04-02] MEDS ORDERED: ONDANSETRON 4 MG ODT STARTER PACK 2 TAB BTL PO STA (01:17)
[2023-04-02] MEDS ORDERED: ACET/COD 300 MG/30 MG STARTER PACK 6 TAB BTL PO STA (01:17)
--- NOTE | 2023-04-02 01:17 | ED ---
Back Pain HPI - General Chief Complaint: Back Pain/Injury Stated Complaint: Broken Right Rib Time Seen by Provider: 04/02/23 00:05 Source: patient Limitations: no limitations - History of Present Illness Initial Comments: Patient is a 68-year-old female presenting with chief complaint of right-sided rib pain. Patient broke her rib back at the beginning of the month. She has no coming appointment with orthopedics scheduled for April 10. Today she was having intense pain. She has been taking Tylenol at home which has not been helping the pain. No new injury or trauma. No chest pain or difficulty breathing. No abdominal pain, nausea, vomiting. - Related Data Home Medications Medication Instructions Recorded Confirmed Acetaminophen Tab [Tylenol] 1,000 mg PO Q6H PRN 01/30/23 03/17/23 Omeprazole 20 mg PO DAILY PRN 01/30/23 03/17/23 Multivitamins, Thera [Multivitamin 1 tab PO DAILY@1200 03/17/23 03/17/23 (formulary)] Previous Rx's Medication Instructions Recorded Aspirin 81 mg PO DAILY #30 tab 02/02/23 Metoprolol Tartrate [Lopressor] 25 mg PO BID #60 tab 02/02/23 Thiamine [Vitamin B-1] 100 mg PO DAILY #30 tablet 02/02/23 hydrALAZINE HCL [Apresoline] 50 mg PO BID #60 tab 02/02/23 Folic Acid 1 mg PO DAILY@1200 #30 tab 02/25/23 Naltrexone HCl [Revia] 50 mg PO DAILY 30 Days #30 tab 02/25/23 Sertraline [Zoloft] 50 mg PO DAILY 30 Days #30 tab 02/25/23 amLODIPine [Norvasc] 5 mg PO DAILY #30 tab 03/19/23 chlordiazePOXIDE HCl [Librium] 10 mg PO HS 2 Days #3 capsule 03/19/23 Lidocaine 5% Patch [Lidoderm 5% 1 patch TOPICAL DAILY PRN #30 patch 04/02/23 Patch] Allergies Allergy/AdvReac Type Severity Reaction Status Date / Time clonazepam [From Klonopin] AdvReac Severe extreme Verified 04/01/23 23:15 drop in Blood pressure prochlorperazine AdvReac Severe Suicidal Verified 04/01/23 23:15 [From Compazine] ideations diphenhydramine AdvReac aggresive Verified 04/01/23 23:15 [From Benadryl] behavior, aggitation fentanyl AdvReac Nausea & Verified 04/01/23 23:15 Vomiting hydrocodone [From [place]] AdvReac Nausea & Verified 04/01/23 23:15 Vomiting hydromorphone [From Dilaudid] AdvReac Nausea & Verified 04/01/23 23:15 Vomiting morphine AdvReac Nausea & Verified 04/01/23 23:15 Vomiting oxycodone [From Percocet] AdvReac Nausea & Verified 04/01/23 23:15 Vomiting Review of Systems ROS Statement: Those systems with pertinent positive or pertinent negative responses have been documented in the HPI. ROS Other: All systems not noted in ROS Statement are negative. Past Medical History Past Medical History: GERD/Reflux, Hypertension, Pneumonia Additional Past Medical History / Comment(s): Alcohol withdrawal History of Any Multi-Drug Resistant Organisms: None Reported Past Surgical History: Appendectomy, Cholecystectomy, Hysterectomy, Tonsillect fili, Tubal Ligation Past Anesthesia/Blood Transfusion Reactions: No Reported Reaction Past Psychological History: Anxiety, Depression, PTSD Smoking Status: Never smoker Past Alcohol Use History: Abuse, Daily Past Drug Use History: None Reported - Past Family History Mother Family Medical History: Dementia Sister(s) Family Medical History: Cancer Brother(s) Family Medical History: Cancer General Exam Limitations: no limitations General appearance: alert, in no apparent distress Head exam: Present: atraumatic, normocephalic, normal inspection Eye exam: Present: normal appearance, EOMI. Absent: scleral icterus, periorbital swelling Neck exam: Present: normal inspection, full ROM Respiratory exam: Present: normal lung sounds bilaterally. Absent: respiratory distress, wheezes, rales, rhonchi, stridor Cardiovascular Exam: Present: regular rate, normal rhythm, normal heart sounds. Absent: systolic murmur, diastolic murmur, rubs, gallop, clicks Neurological exam: Present: alert, oriented X3, CN II-XII intact Psychiatric exam: Present: normal affect, normal mood Skin exam: Present: warm, dry, intact, normal color. Absent: rash Course Vital Signs 04/01/23 04/02/23 23:07 01:24 Temperature 98.3 F Pulse Rate 113 H 84 Respiratory 18 18 Rate Blood Pressure 155/94 134/67 O2 Sat by Pulse 96 97 Oximetry Medical Decision Making - Medical Decision Making Was pt. sent in by a medical professional or institution (, MANDEEP, HYDROLOGIST, urgent care, hospital, or [facility]...) When possible be specific @ -No Did you speak to anyone other than the patient for history (EMS, parent, family, police, friend...)? What history was obtained from this source @ -No Did you review nursing and triage notes (agree or disagree)? Why? @ -I reviewed and agree with nursing and triage notes Were old charts reviewed (outside hosp., previous admission, EMS record, old EKG, old radiological studies, urgent care reports/EKG's, [facility] records)? Report findings @ -No old charts were reviewed Differential Diagnosis (chest pain, altered mental status, abdominal pain women, abdominal pain men, vaginal bleeding, weakness, fever, dyspnea, syncope, headache, dizziness, GI bleed, back pain, seizure, CVA, palpatations, mental health, musculoskeletal)? @ -Differential includes chronic pain from recent injury, fracture, pneumothorax, this is not an all inclusive list EKG interpreted by me (3pts min.). @ -As above X-rays interpreted by me (1pt min.). @ -None done CT interpreted by me (1pt min.). @ -None done U/S interpreted by me (1pt. min.). @ -None done What testing was considered but not performed or refused? (CT, X-rays, U/S, labs)? Why? @ -None What meds were considered but not given or refused? Why? @ -None Did you discuss the management of the patient with other professionals (professionals i.e. MANDEEP Barrientos, HYDROLOGIST, lab, RT, psych nurse, social welfare research worker, technical sme, teacher, chief talent officer, employment case manager)? Give summary @ -No Was smoking cessation discussed for >3mins.? @ -No Was critical care preformed (if so, how long)? @ -No Were there social determinants of health that impacted care today? How? (Homelessness, low income, unemployed, alcoholism, drug addiction, transportation, low edu. Level, literacy, decrease access to med. care, prison, rehab)? @ -No Was there de-escalation of care discussed even if they declined (Discuss DNR or withdrawal of care, Hospice)? DNR status @ -No What co-morbidities impacted this encounter? (DM, HTN, Smoking, COPD, CAD, Cancer, CVA, ARF, Chemo, Hep., AIDS, mental health diagnosis, sleep apnea, morbid obesity)? @ -None Was patient admitted / discharged? Hospital course, mention meds given and route, prescriptions, significant lab abnormalities, going to OR and other pertinent info. @ -68-year-old female presenting with chief complaint of rib pain. Patient broke her rib at the beginning of the month and is awaiting an upcoming orthopedic appointment. He has been taking Tylenol with little relief. On physical examination there is tenderness to palpation. Heart and lungs are clear to auscultation. Patient is given pain medication educated on supportive management at home. Follow-up with PCP. Report back to ER with any new or worsening symptoms. Discussed return parameters and answered all questions. Patient conveyed verbal understanding and agreed to the plan. I discussed this case in detail with my attending Dr. Martell Undiagnosed new problem with uncertain prognosis? @ -No Drug Therapy requiring intensive monitoring for toxicity (Heparin, Nitro, Insulin, Cardizem)? @ -No Were any procedures done? @ -No Diagnosis/symptom? @ -Rib pain Acute, or Chronic, or Acute on Chronic? @ -Acute Uncomplicated (without systemic symptoms) or Complicated (systemic symptoms)? @ -Uncomplicated Side effects of treatment? @ -No Exacerbation, Progression, or Severe Exacerbation? @ -No Poses a threat to life or bodily function? How? (Chest pain, [place], [place], pneumonia, PE, COPD, DKA, ARF, appy, cholecystitis, CVA, Diverticulitis, Homicidal, Suicidal, threat to staff... and all critical care pts) @ -No Disposition Clinical Impression: Rib pain Disposition: HOME SELF-CARE Condition: Good Instructions (If sedation given, give patient instructions): Rib Fracture (ED) Additional Instructions: Follow-up with PCP and orthopedic at scheduled appointment. Report back to ER with any new or worsening symptoms. Take medication as prescribed. Prescriptions: Lidocaine 5% Patch [Lidoderm 5% Patch] 1 patch TOPICAL DAILY PRN #30 patch PRN Reason: Pain Is patient prescribed a controlled substance at d/c from ED?: No Referrals: Imelda Levy MD [Primary Care Provider] - 1-2 days Time of Disposition: :17
[2023-04-02 01:25] VITALS: BP 134/67; PULSE 84
== END 2023-04-02 01:30 | disposition home or self-care (01) ==
LOC: EC 22:41
DX: R07.82 Intercostal pain (principal); K21.9 Gastro-esophageal reflux disease without esophagitis; I10 Essential (primary) hypertension; F41.9 Anxiety disorder, unspecified; F32.A Depression, unspecified; Z88.5 Allergy status to narcotic agent; Z88.8 Allergy status to other drugs, medicaments and biological substances; Z79.899 Other long term (current) drug therapy
CPT/HCPCS: 99283; 96372; J1885; S0119

== ENCOUNTER 2023-04-09 13:03 | Inpatient (IN) | payer MEDICARE, OTHER ==
[2023-04-09] MEDS ORDERED: LORazepam 2 MG/ML INJ IV STA (13:44)
[2023-04-09] MEDS ORDERED: SODIUM CHLORIDE 0.9% 1,000 ML IV STA (13:45)
--- NOTE | 2023-04-09 13:59 | ED ---
General Adult HPI - General Chief complaint: Recheck/Abnormal Lab/Rx Stated complaint: NVD Time Seen by Provider: 04/09/23 13:21 Source: patient Mode of arrival: ambulatory Limitations: no limitations - History of Present Illness Initial comments: Dictation was produced using [employer] dictation software. please excuse any grammatical, word or spelling errors. Chief Complaint: 68-year-old female returns to the emergency department yet again for alcohol withdrawals History of Present Illness: Patient is 68-year-old female she was recently admitted to the hospital for treatment of alcohol withdrawals. She was just discharged 3 weeks ago. States that she relapsed for the last several days she's been drinking a fifth of alcohol. States that she has not had alcohol in the last 36 hours. Patient this morning began having withdrawal symptoms recurrence. She says she has very tremulous. She is also nauseated. Denies any fevers. The ROS documented in this emergency department record has been reviewed and confirmed by me. Those systems with pertinent positive or negative responses have been documented in the HPI. All other systems are other negative and/or noncontributory. - Related Data Home Medications Medication Instructions Recorded Confirmed Acetaminophen Tab [Tylenol] 1,000 mg PO Q6H PRN 01/30/23 04/09/23 Multivitamins, Thera [Multivitamin 1 tab PO DAILY@1200 03/17/23 04/09/23 (formulary)] Previous Rx's Medication Instructions Recorded Aspirin 81 mg PO DAILY #30 tab 02/02/23 Metoprolol Tartrate [Lopressor] 25 mg PO BID #60 tab 02/02/23 Thiamine [Vitamin B-1] 100 mg PO DAILY #30 tablet 02/02/23 hydrALAZINE HCL [Apresoline] 50 mg PO BID #60 tab 02/02/23 Folic Acid 1 mg PO DAILY@1200 #30 tab 02/25/23 Naltrexone HCl [Revia] 50 mg PO DAILY 30 Days #30 tab 02/25/23 Sertraline [Zoloft] 50 mg PO DAILY 30 Days #30 tab 02/25/23 amLODIPine [Norvasc] 5 mg PO DAILY #30 tab 03/19/23 chlordiazePOXIDE HCl [Librium] 10 mg PO HS 2 Days #3 capsule 03/19/23 Lidocaine 5% Patch [Lidoderm 5% 1 patch TOPICAL DAILY PRN #30 patch 04/02/23 Patch] Levofloxacin [Levaquin] 500 mg PO Q24H 3 Days #3 tab 04/11/23 Magnesium Oxide [Mag-Ox] 400 mg PO TID 5 Days #15 tab 04/11/23 Omeprazole 40 mg PO DAILY PRN 30 Days #30 cap 04/11/23 Allergies Allergy/AdvReac Type Severity Reaction Status Date / Time clonazepam [From Klonopin] AdvReac Severe extreme Verified 04/09/23 15:58 drop in Blood pressure prochlorperazine AdvReac Severe Suicidal Verified 04/09/23 15:58 [From Compazine] ideations diphenhydramine AdvReac aggresive Verified 04/09/23 15:58 [From Benadryl] behavior, aggitation fentanyl AdvReac Nausea & Verified 04/09/23 15:58 Vomiting hydrocodone [From Velpen] AdvReac Nausea & Verified 04/09/23 15:58 Vomiting hydromorphone [From Dilaudid] AdvReac Nausea & Verified 04/09/23 15:58 Vomiting morphine AdvReac Nausea & Verified 04/09/23 15:58 Vomiting oxycodone [From Percocet] AdvReac Nausea & Verified 04/09/23 15:58 Vomiting Review of Systems ROS Statement: Those systems with pertinent positive or pertinent negative responses have been documented in the HPI. ROS Other: All systems not noted in ROS Statement are negative. Past Medical History Past Medical History: GERD/Reflux, Hypertension, Pneumonia Additional Past Medical History / Comment(s): Alcohol withdrawal History of Any Multi-Drug Resistant Organisms: None Reported Past Surgical History: Appendectomy, Cholecystectomy, Hysterectomy, Tonsillectomy, Tubal Ligation Past Anesthesia/Blood Transfusion Reactions: No Reported Reaction Past Psychological History: Anxiety, Depression, PTSD Smoking Status: Never smoker Past Alcohol Use History: Abuse, Daily, Heavy Past Drug Use History: None Reported - Past Family History Mother Family Medical History: Dementia Sister(s) Family Medical History: Cancer Brother(s) Family Medical History: Cancer General Exam - General Exam Comments Initial Comments: PHYSICAL EXAM: General Impression: Alert and oriented x3, not in acute distress, tremulous, diaphoretic HEENT: Normocephalic atraumatic, extra-ocular movements intact, pupils equal and reactive to light bilaterally, mucous membranes moist. Cardiovascular: Heart regular rate and rhythm Chest: Able to complete full sentences, no retractions, no tachypnea Abdomen: abdomen soft, non-tender, non-distended, no organomegaly Musculoskeletal: Pulses present and equal in all extremities, no peripheral edema Motor: no focal deficits noted Neurological: CN II-XII grossly intact, no focal motor or sensory deficits noted Skin: Intact with no visualized rashes Psych: Anxious Limitations: no limitations Course Vital Signs 04/09/23 04/09/23 04/09/23 13:12 16:41 17:45 Temperature 98.2 F 98.5 F 98.4 F Pulse Rate 166 H 92 Pulse Rate [ 113 H Right] Respiratory 24 18 20 Rate Blood Pressure 173/93 169/99 Blood Pressure 173/90 [Left Arm] O2 Sat by Pulse 98 97 98 Oximetry EKG Findings - EKG Comments: EKG Findings:: My EKG interpretation: Ventricular rate 91, sinus rhythm,. Interval 136, QRS 70, QTC 452. No PA prolongation, no QTC prolongation, no ST or T-wave changes noted. Overall, this EKG is unremarkable Medical Decision Making - Medical Decision Making Was pt. sent in by a medical professional or institution (, PA, BLOCKMAN, urgent care, hospital, or halfway...) When possible be specific @ -No Did you speak to anyone other than the patient for history (EMS, parent, family, police, friend...)? What history was obtained from this source @ -No Did you review nursing and triage notes (agree or disagree)? Why? @ -I reviewed and agree with nursing and triage notes Were old charts reviewed (outside hosp., previous admission, EMS record, old EKG, old radiological studies, urgent care reports/EKG's, halfway records)? Report findings @ -Recent chart was reviewed, discharge summary shows that that patient was recently admitted for occult withdrawal Differential Diagnosis (chest pain, altered mental status, abdominal pain women, abdominal pain men, vaginal bleeding, musculoskeletal, weakness, fever, dyspnea, syncope, headache, dizziness, GI bleed, back pain, seizure, CVA, palpatations, mental health)? @ -not applicable EKG interpreted by me (3pts min.). @ -See above X-rays interpreted by me (1pt min.). @ -None done CT interpreted by me (1pt min.). @ -None done U/S interpreted by me (1pt. min.). @ -None done What testing was considered but not performed or refused? (CT, X-rays, U/S, labs)? Why? @ -None What meds were considered but not given or refused? Why? @ -None Did you discuss the management of the patient with other professionals (professionals i.e. , PA, BLOCKMAN, lab, RT, psych nurse, director of social work, insurance representative, teacher, occupational medicine officer, telehealth case manager)? Give summary @ -Labs and imaging clinical presentation discussed with Dr. Fontaine for admission Was smoking cessation discussed for >3mins.? @ -No Was critical care preformed (if so, how long)? @ -No Were there social determinants of health that impacted care today? How? (Homelessness, low income, unemployed, alcoholism, drug addiction, trans portation, low edu. Level, literacy, decrease access to med. care, alf, rehab)? @ -No Was there de-escalation of care discussed even if they declined (Discuss DNR or withdrawal of care, Hospice)? DNR status @ -No What co-morbidities impacted this encounter? (DM, HTN, Smoking, COPD, CAD, Cancer, CVA, ARF, Chemo, Hep., AIDS, mental health diagnosis, sleep apnea, morbid obesity)? @ -None Was patient admitted / discharged? Hospital course, mention meds given and route, prescriptions, significant lab abnormalities, going to OR and other pertinent info. @ -[id number] female presents to the emergency department with symptoms of alcohol withdrawal. Patient had a relapse. Vital signs shows a rate of 166. Patient very tremulous at the bedside. Patient treated with Ativan. She'll be admitted for inpatient treatment of alcohol withdrawal. Undiagnosed new problem with uncertain prognosis? @ -No Drug Therapy requiring intensive monitoring for toxicity (Heparin, Nitro, Insulin, Cardizem)? @ -No Were any procedures done? @ -No Diagnosis/symptom? Acute, or Chronic, or Acute on Chronic? Uncomplicated (without systemic symptoms) or Complicated (systemic symptoms)? @ -1. Alcohol withdrawal Side effects of treatment? @ -No Exacerbation, Progression, or Severe Exacerbation? @ -No Poses a threat to life or bodily function? How? (Chest pain, [place], [place], pneumonia, PE, COPD, DKA, ARF, appy, cholecystitis, CVA, Diverticulitis, Homicidal, Suicidal, threat to staff... and all critical care pts) @ -yes - Lab Data Result diagrams: 04/11/23 06:00 04/11/23 07:04 Lab Results 04/09/23 04/09/23 04/09/23 Range/Units 15:02 15:02 15:02 WBC 4.1 (3.8-10.6) k/uL RBC 4.30 (3.80-5.40) m/uL Hgb 14.2 (11.4-16.0) gm/dL Hct 41.6 (34.0-46.0) % MCV 96.9 (80.0-100.0) fL MCH 33.0 (25.0-35.0) pg MCHC 34.1 (31.0-37.0) g/dL RDW 15.4 (11.5-15.5) % Plt Count 78 L D (150-450) k/uL MPV 8.1 Neutrophils % (Manual) 79 % Lymphocytes % (Manual) 18 % Monocytes % (Manual) 3 % Neutrophils # (Manual) 3.24 (1.3-7.7) k/uL Lymphocytes # (Manual) 0.74 L (1.0-4.8) k/uL Monocytes # (Manual) 0.12 (0-1.0) k/uL Nucleated RBCs 0 (0-0) /100 WBC Manual Slide Review Performed Sodium 142 (137-145) mmol/L Potassium 4.2 (3.5-5.1) mmol/L Chloride 105 (98-107) mmol/L Carbon Dioxide 17 L (22-30) mmol/L Anion Gap 20 mmol/L BUN 8 (7-17) mg/dL Creatinine 0.70 (0.52-1.04) mg/dL Est GFR (CKD-EPI)AfAm >90 (>60 ml/min/1.73 sqM) Est GFR (CKD-EPI)NonAf >90 (>60 ml/min/1.73 sqM) Glucose 129 H (74-99) mg/dL Plasma Lactic Acid Mark 3.8 H* (0.7-2.0) mmol/L Calcium 9.3 (8.4-10.2) mg/dL Magnesium 1.0 L (1.6-2.3) mg/dL Total Bilirubin 2.4 H (0.2-1.3) mg/dL AST 98 H (14-36) U/L ALT 55 H (4-34) U/L Alkaline Phosphatase 68 (38-126) U/L Total Protein 8.0 (6.3-8.2) g/dL Albumin 4.8 (3.5-5.0) g/dL Serum Alcohol <10 mg/dL Disposition Clinical Impression: Alcohol withdrawal Disposition: ADMITTED IP TO THIS HOSP
[2023-04-09 15:11] LABS: HCT 41.6 % (34.0-46.0); HGB 14.2 gm/dL (11.4-16.0); MCHC 34.1 g/dL (31.0-37.0); MCV 96.9 fL (80.0-100.0); Mean Platelet Volume 8.1; RDW 15.4 % (11.5-15.5); WBC 4.1 k/uL (3.8-10.6)
[2023-04-09 15:37] LABS: ALT 55 U/L (4-34); AST 98 U/L (14-36); African American GFR (CKD) >90 (>60 ml/min/1.73 sqM); Albumin 4.8 g/dL (3.5-5.0); Alcohol <10 mg/dL; Alkaline Phosphatase 68 U/L (38-126); Anion Gap 20 mmol/L; Blood Urea Nitrogen 8 mg/dL (7-17); Calcium 9.3 mg/dL (8.4-10.2); Carbon Dioxide 17 mmol/L (22-30); Chloride 105 mmol/L (98-107); Glucose 129 mg/dL (74-99); Non-African American GFR(CKD) >90 (>60 ml/min/1.73 sqM); Potassium 4.2 mmol/L (3.5-5.1); Sodium 142 mmol/L (137-145); Total Bilirubin 2.4 mg/dL (0.2-1.3)
[2023-04-09] MEDS ORDERED: NALOXONE 0.4 MG/ML 1 ML VIAL IV PRN (15:38)
[2023-04-09] MEDS ORDERED: LORazepam 2 MG/ML INJ IV PRN ×2 (15:38)
[2023-04-09] MEDS ORDERED: THIAMINE 100 MG/ML 2 ML VIAL IM STA (15:38)
[2023-04-09] MEDS: MAGNESIUM SULFATE-D5W PMX 1 GM in DEXTROSE/WATER 1 100ML.BAG IVPB SCH ×2 (16:37→17:59)
[2023-04-09 17:21] LABS: Lymphocytes # (M) 0.74 k/uL (1.0-4.8); Monocytes # (M) 0.12 k/uL (0-1.0); Neutrophils # (M) 3.24 k/uL (1.3-7.7); Neutrophils % (M) 79 %; Nucleated Red Blood Cells 0 /100 WBC (0-0); Total Cells Counted 100
[2023-04-09] MEDS: SODIUM CHLORIDE 0.9% 1,000 ML IV SCH (18:00)
[2023-04-09] MEDS: LORazepam 2 MG/ML INJ IV PRN (21:24)
--- NOTE | 2023-04-09 22:37 | HP ---
HISTORY AND PHYSICAL CHIEF COMPLAINTS: Alcohol withdrawal symptoms. HISTORY OF PRESENT ILLNESS: This is a 68-year-old woman with a past medical history of multiple medical problems including GERD and hypertension, who was alcohol free for the last 5 years according to her. The patient had significant stressors, and the patient started drinking again drinking up to a fifth of alcohol. The patient apparently relapsed and came to [facility] with complaints of anxiety, some vomiting, and shaking tremors. The patient was admitted for further evaluation and treatment. There is no history of any fever rigors. PAST MEDICAL HISTORY: EtOH and hypertension. Rest of the history and rest of the chart are also reviewed. HOME MEDICATIONS: Reviewed include hydralazine. Doses and rest of the medications are noted. ALLERGIES: Klonopin. Rest of the allergies are noted. FAMILY HISTORY: History of dementia. SOCIAL HISTORY: History of alcohol, daily, heavy abuse. No history of smoking. REVIEW OF SYSTEMS: Fourteen-point review is negative except as mentioned earlier. PHYSICAL EXAMINATION: VITAL SIGNS: Pulse 66, blood pressure 173/93, respirations 25. HEENT: Conjunctivae are normal. NECK: No jugular venous distention. CARDIOVASCULAR: S1 and S2 muffled. RESPIRATORY: Breath sounds diminished at the bases. Few scattered rhonchi and crackles. ABDOMEN: Soft and nontender. LEGS: No edema. NERVOUS SYSTEM: Nonfocal. LABORATORY DATA: Reviewed. ASSESSMENT: 1. Acute alcoholism and alcohol withdrawal. 2. Hypomagnesemia. 3. Thrombocytopenia. 4. Hypertension. 5. History of pneumonia. 6. Multiple medical issues. RECOMMENDATIONS AND DISCUSSION: In this 68-year-old woman presented with multiple complex medical issues, we will monitor the patient closely. Recommend to continue the current medications. Continue the symptomatic treatment and CIWA protocol. Closely follow. agricultural service worker to evaluate the home situation. Recommend rehab. Discussed with the fiance at the bedside. Prognosis is guarded. See orders for further details. Further recommendations to follow. MMODL / IJN: [id number] /
[2023-04-10] MEDS: SODIUM CHLORIDE 0.9% 1,000 ML IV SCH (06:22)
[2023-04-10] MEDS: THIAMINE 100 MG TAB PO SCH ×2 (08:02→08:43)
[2023-04-10 08:23] LABS: Platelet Count 78 k/uL (150-450)
[2023-04-10 08:27] LABS: Appearance,Urine Clear (Clear); Bacteria,Urine Many /hpf; Bilirubin,Urine Negative (Negative); Blood,Urine Negative (Negative); Color,Urine Yellow; Glucose,Urine (UA) Negative (Negative); Hyaline Casts,Urine 1 /lpf (0-2); Ketones,Urine Negative (Negative); Leukocyte Esterase,Urine Moderate (Negative); Mucus,Urine Rare /hpf; Nitrite,Urine Positive (Negative); PH, Urine 7.5 (5.0-8.0); Protein,Urine Negative (Negative); RBC,Urine 3 /hpf (0-5); Squamous Epithelial Cell,Urine 1 /hpf (0-4); Urobilinogen,Urine <2.0 mg/dL (<2.0); WBC,Urine 27 /hpf (0-5)
[2023-04-10] MEDS ORDERED: LIDOCAINE 5% PATCH TOPICAL PRN (08:31)
[2023-04-10] MEDS: HEPARIN SODIUM,PORCINE/PF 5,000 UNIT/0.5 ML SYRINGE SQ SCH ×2 (08:41→20:29)
[2023-04-10] MEDS: PANTOPRAZOLE 40 MG/10 ML VIAL IVP SCH (08:42)
[2023-04-10] MEDS: amLODIPine 5 MG TAB PO SCH (08:42)
[2023-04-10] MEDS: METOPROLOL TARTRATE 25 MG TAB PO SCH ×2 (08:42→20:29)
[2023-04-10] MEDS: SERTRALINE 50 MG TAB PO SCH (08:42)
[2023-04-10] MEDS: ASPIRIN 81 MG PO SCH (08:42)
[2023-04-10] MEDS: hydrALAZINE HCL 50 MG TAB PO SCH ×2 (08:42→20:29)
[2023-04-10 09:41] LABS: Albumin 3.7 d/dL (3.8-4.9); Albumin/Globulin Ratio 1.61 Ratio (1.60-3.17); Bilirubin, Conjugated 0.51 mg/dL (0.20-0.40); Bilirubin,Unconjugated 0.89 mg/dL (0.20-1.00); Globulin 2.3 d/dL (1.6-3.3); Magnesium 1.7 mg/dL (1.5-2.4); Total Bilirubin 1.4 mg/dL (0.3-1.2)
[2023-04-10 09:44] LABS: Basophils # (A) 0.01 X 10*3/uL (0.00-0.10); Basophils % (A) 0.4 %; Eosinophils # (A) 0.02 X 10*3/uL (0.04-0.35); Eosinophils % (A) 0.9 %; HCT 34.2 % (37.2-46.3); HGB 11.7 d/dL (12.0-15.0); Immature Grans, Automated 0 %; Immature Platelet Fraction 4.8 % (1.1-6.1); Lymphocytes # (A) 0.97 X 10*3/uL (0.90-5.00); Lymphocytes % (A) 41.5 %; MCH 32.9 pg (27.0-32.0); MCHC 34.2 d/dL (32.0-37.0); MCV 96.1 FL (80.0-97.0); Mean Platelet Volume 10.5 FL (9.5-12.2); Monocytes # (A) 0.22 X 10*3/uL (0.20-1.00); Monocytes % (A) 9.4 %; NRBC Per 100 WBC 0 X 10*3/uL (0.00-0.01); Neutrophils # (A) 1.12 X 10*3/uL (1.80-7.70); Neutrophils % (A) 47.8 %; Platelet Count 63 X 10*3/uL (140-440); RBC 3.56 X 10*6/uL (4.10-5.20); RDW 15.6 % (11.5-14.5); WBC 2.34 X 10*3/uL (4.50-10.00)
[2023-04-10 10:44] VITALS: BMI 26.6
[2023-04-10] MEDS: NALTREXONE HCL 50 MG TAB PO SCH (11:24)
[2023-04-10] MEDS: MULTIVITAMINS, THERA 1 EACH TAB PO SCH (11:25)
--- NOTE | 2023-04-10 12:54 | P.PN ---
Subjective This is a pleasant 67 years old female with past medical history of hypertension, depression, alcohol withdrawal Patient presents because she is alcoholic and she wants to quit drinking, she states she drinks about 1/5 of liquor every day and her last drink was at 9 PM, and she does not want to drink anymore and she came to the hospital to help her quiting her drinking habits (she states that this time. A friend will help her not to go to liquor store when she is discharged) Patient was vomiting on admission, no more vomiting, no abdominal pain, but on exam she has RUQ tenderness, she had mild diarrhea yesterday and this morning. Did not eat much. She states she vomited once this morning and then 2 more times R1 but there was no blood and she has loose stool about 5 times this morning with rather is no blood in it. She denies abdominal pain She denies any urinary symptoms like dysuria or urgency. She denies headache weakness numbness or blurred vision. No slurred speech. She denies chest pain dyspnea or coughing. She denies illicit drugs. She complains from mild signs and symptoms of depression, she denies suicidal ideation. No homicidal ideation, no hallucination Patient blood pressure was slightly elevated, currently improved, Patient is afebrile and stress of Vitas looks stable. Labs showing WBC 2.3, hemoglobin 11.7, platelet count 63, liver enzymes improved. Objective - Vital Signs Vital signs: Vital Signs Temp 98.3 F 04/10/23 11:12 Pulse 94 04/10/23 11:12 Resp 16 04/10/23 11:12 BP 128/76 04/10/23 11:12 Pulse Ox 97 04/10/23 11:12 FiO2 Intake & Output 04/09/23 04/10/23 04/10/23 18:59 06:59 18:59 Intake Total 900 Balance 900 Weight 72.575 kg 72.575 kg Intake: Intake, IV Titration 900 Amount Sodium Chloride 0.9% 1, 900 000 ml @ 75 mls/hr IV . [id number] [facility] Rx#:[id number] Other: Voiding Method Bedside Commode Toilet # Voids 1 # Bowel Movements 1 - Exam GENERAL: The patient is alert and oriented x3, not in any acute distress. Well developed, well nourished. HEENT: Pupils are round and equally reacting to light. EOMI. No scleral icterus. No conjunctival pallor. Normocephalic, atraumatic. No pharyngeal erythema. No thyromegaly. CARDIOVASCULAR: S1 and S2 present. No murmurs, rubs, or gallops. PULMONARY: Chest is clear to auscultation, no wheezing , no crackles. -ABDOMEN: Soft, right upper quadrant tenderness, no rebound tenderness or guarding, nondistended, normoactive bowel sounds. No palpable organomegaly. MUSCULOSKELETAL: No joint swelling or deformity. EXTREMITIES: No cyanosis, clubbing, or pedal edema. NEUROLOGICAL: Gross neurological examination did not reveal any focal deficits. SKIN: No rashes. no petechiae. - Labs CBC & Chem 7: 04/10/23 06:14 04/09/23 15:02 Labs: Abnormal Lab Results - Last 24 Hours (Table) 04/09/23 04/09/23 04/09/23 Range/Units 15:02 15:02 15:02 WBC (4.50-10.00) X 10*3/uL RBC (4.10-5.20) X 10*6/uL Hgb (12.0-15.0) d/dL Hct (37.2-46.3) % MCH (27.0-32.0) pg RDW (11.5-14.5) % Plt Count 78 L D (150-450) k/uL Neutrophils # (1.80-7.70) X 10*3/uL Lymphocytes # (Manual) 0.74 L (1.0-4.8) k/uL Eosinophils # (0.04-0.35) X 10*3/uL Carbon Dioxide 17 L (22-30) mmol/L Glucose 129 H (74-99) mg/dL Plasma Lactic Acid Mark 3.8 H* (0.7-2.0) mmol/L Magnesium 1.0 L (1.6-2.3) mg/dL Total Bilirubin 2.4 H (0.2-1.3) mg/dL Conjugated Bilirubin (0.20-0.40) mg/dL AST 98 H (14-36) U/L ALT 55 H (4-34) U/L Total Protein (6.2-8.2) d/dL Albumin (3.8-4.9) d/dL Urine Nitrite (Negative) Ur Leukocyte Esterase (Negative) Urine WBC (0-5) /hpf Urine Bacteria (None) /hpf Urine Mucus (None) /hpf 04/10/23 04/10/23 04/10/23 Range/Units 06:14 06:14 08:05 WBC 2.34 L (4.50-10.00) X 10*3/uL RBC 3.56 L (4.10-5.20) X 10*6/uL Hgb 11.7 L (12.0-15.0) d/dL Hct 34.2 L (37.2-46.3) % MCH 32.9 H (27.0-32.0) pg RDW 15.6 H (11.5-14.5) % Plt Count 63 L (150-450) k/uL Neutrophils # 1.12 L (1.80-7.70) X 10*3/uL Lymphocytes # (Manual) (1.0-4.8) k/uL Eosinophils # 0.02 L (0.04-0.35) X 10*3/uL Carbon Dioxide (22-30) mmol/L Glucose (74-99) mg/dL Plasma Lactic Acid Mark (0.7-2.0) mmol/L Magnesium (1.6-2.3) mg/dL Total Bilirubin 1.4 H (0.2-1.3) mg/dL Conjugated Bilirubin 0.51 H (0.20-0.40) mg/dL AST 50 H (14-36) U/L ALT (4-34) U/L Total Protein 6.0 L (6.2-8.2) d/dL Albumin 3.7 L (3.8-4.9) d/dL Urine Nitrite Positive H (Negative) Ur Leukocyte Esterase Moderate H (Negative) Urine WBC 27 H (0-5) /hpf Urine Bacteria Many H (None) /hpf Urine Mucus Rare H (None) /hpf Assessment and Plan Assessment: Alcohol use disorder with alcohol withdrawal Gastroenteritis, possible alcoholic Alcoholic pancytopenia Hypertension, uncontrolled on admission History of depression, not an active issue Plan: Continue with CIWA protocol Continue with thiamine Check liver ultrasound. Advance diet as tolerated Labs and medication were reviewed.. Continue same treatment. Continue with symptomatic treatment. Resume home medication. Monitor labs and vitals. DVT and GI prophylaxis. Further recommendations as per clinical course of the patient DVT prophylaxis: Subcutaneous heparin GI Prophylaxis: Pepcid PT/OT: Pending Prognosis is guarded
--- NOTE | 2023-04-10 16:04 | US ---
EXAMINATION TYPE: US liver DATE OF EXAM: 04/10/2023 COMPARISON: NONE CLINICAL INDICATION: Female, 68 years old with history of RUQ pain ,alcoholic; pt fell on back 3 mariela hs prior, pain continues to radiate from rt post ribs to RUQ/epigastric area TECHNIQUE: Multiple sonographic images of the right upper quadrant are obtained. FINDINGS: EXAM MEASUREMENTS: Liver Length: 17.4 cm Gallbladder Wall: Surgically absent cm CBD: 0.53 cm Right Kidney: 10.2x4.8x4.8 cm [employer] NOTES: Pancreas: Obscured by bowel gas Liver: increased attenuation, enlarged Gallbladder: Surgically absent Evidence for sonographic Robertson's sign: No CBD: wnl Right Kidney: No hydronephrosis or masses seen Patient tender to transducer pressure IMPRESSION: 1. Postcholecystectomy. 2. Increased attenuation of the liver with mild hepatomegaly correlate for hepatocellular disease or hepatic steatosis.
[2023-04-10] MEDS ORDERED: IBUPROFEN 400 MG TAB PO PRN (16:08)
[2023-04-10] MEDS: FAMOTIDINE 20 MG/2 ML VIAL IV SCH (20:29)
[2023-04-11] MEDS: SODIUM CHLORIDE 0.9% 1,000 ML IV SCH ×2 (00:25→09:23)
[2023-04-11] MEDS: LORazepam 2 MG/ML INJ IV PRN (00:41)
[2023-04-11 02:31] VITALS: RESP 16
[2023-04-11 07:27] LABS: Prothrombin Time 10.9 sec (9.0-12.0)
[2023-04-11] MEDS: METOPROLOL TARTRATE 25 MG TAB PO SCH (09:22)
[2023-04-11] MEDS: PANTOPRAZOLE 40 MG/10 ML VIAL IVP SCH (09:22)
[2023-04-11] MEDS: FAMOTIDINE 20 MG/2 ML VIAL IV SCH (09:22)
[2023-04-11] MEDS: amLODIPine 5 MG TAB PO SCH ×2 (09:22→09:26)
[2023-04-11] MEDS: hydrALAZINE HCL 50 MG TAB PO SCH (09:22)
[2023-04-11] MEDS: ASPIRIN 81 MG PO SCH (09:22)
[2023-04-11] MEDS: THIAMINE 100 MG TAB PO SCH ×2 (09:22)
[2023-04-11] MEDS: HEPARIN SODIUM,PORCINE/PF 5,000 UNIT/0.5 ML SYRINGE SQ SCH (09:22)
[2023-04-11] MEDS: SERTRALINE 50 MG TAB PO SCH (09:22)
[2023-04-11] MEDS: NALTREXONE HCL 50 MG TAB PO SCH (09:25)
[2023-04-11 11:32] VITALS: BP 139/73; PULSE 68; TEMP 97.7
[2023-04-11] MEDS ORDERED: LEVOFLOXACIN 500 MG TAB PO SCH (12:00)
[2023-04-11 12:37] LABS: HGB 12.5 gm/dL (11.4-16.0); MCH 33.3 pg (25.0-35.0); MCV 100.9 fL (80.0-100.0); Macrocytosis Slight; Mean Platelet Volume 9.8; RBC 3.76 m/uL (3.80-5.40); RDW 15.4 % (11.5-15.5); WBC 2.7 k/uL (3.8-10.6)
[2023-04-11 12:50] LABS: Platelet Count 60 k/uL (150-450)
[2023-04-11] MEDS: MULTIVITAMINS, THERA 1 EACH TAB PO SCH (12:50)
[2023-04-11 13:32] LABS: BUN/Creat Ratio 7.29 Ratio (12.00-20.00); Blood Urea Nitrogen 5.1 mg/dL (9.0-27.0); Calcium 8.5 mg/dL (8.7-10.3); Carbon Dioxide 22.5 mmol/L (21.6-31.8); Chloride 103 mmol/L (96-109); Glucose 93 mg/dL (70-110); Magnesium 1.4 mg/dL (1.5-2.4); Potassium 3.7 mmol/L (3.5-5.5); Sodium 138 mmol/L (135-145)
[2023-04-11] MEDS ORDERED: POTASSIUM CHLORIDE ER 20 MEQ TAB.ER PO STA (14:38)
[2023-04-11] MEDS ORDERED: MAGNESIUM SULFATE-D5W PMX 1 GM in DEXTROSE/WATER 1 100ML.BAG IVPB SCH (14:45)
--- NOTE | 2023-04-12 00:11 | P.DS ---
Providers Date of admission: 04/09/23 15:39 Attending physician: Heather Fontaine Primary care physician: [facility] Course: Diagnoses: Alcohol use disorder with alcohol withdrawal Gastroenteritis, possible alcoholic Alcoholic pancytopenia Hypertension, uncontrolled on admission History of depression, not an active issue Hospital course: This is a pleasant 67 years old female with past medical history of hypertension, depression, alcohol withdrawal Patient presents because she is alcoholic and she wants to quit drinking, she states she drinks about 1/5 of liquor every day and her last drink was at 9 PM, and she does not want to drink anymore and she came to the hospital to help her quiting her drinking habits (she states that this time. A friend will help her not to go to liquor store when she is discharged) Patient was vomiting on admission, no more vomiting, no abdominal pain, but on exam she has RUQ tenderness, she had mild diarrhea yesterday and this morning. Did not eat much. Patient was started on CIWA protocol [place], she showed interval improvement, this morning she has minimal withdrawal symptoms she required only one dose. Morning of Ativan. Abdominal pain resolved, no more diarrhea and she tolerates diet well. She is complaining from dysuria, urine analysis is suspicious for infection, urine culture did not sent as usual, I offered for the patient to repeat urine analysis and urine Culture, patient declined because she does not want to wait for culture results, alternatives he was going to start the patient on Levaquin empirically with recommendation to follow-up outpatient her PCP Dr. jones in one week for reevaluation patient verbalized understanding and acceptance Patient was counseled to quit drinking alcohol and she agrees. Pancytopenia is a stable, elevated alcoholic liver enzymes trending down. Problems and management plan were discussed with the patient and he verbalized understanding and acceptance Patient was found stable and can be discharged home in guarded prognosis however he needs follow-up as an outpatient. Patient was instructed to follow up with PCP within one week and patient agrees Patient has recent history of rib fractures since last admission and she missed her appointment with Dr. Sterling as she tells me because she was hospitalized, she intends to follow up with him this coming week Physical exam Gen: patient is a AAOx3, no distress CVS: S1-S2, RRR, no murmur Lungs: B/L CTA, no wheezing Abdomen: soft, no distention, no tenderness, positive bowel sounds Extremity: no leg edema or induration Time spent more than 35 minutes Plan - Discharge Summary Discharge Rx Participant: No New Discharge Prescriptions: New Levofloxacin [Levaquin] 500 mg PO Q24H 3 Days #3 tab Magnesium Oxide [Mag-Ox] 400 mg PO TID 5 Days #15 tab Continue Acetaminophen Tab [Tylenol] 1,000 mg PO Q6H PRN PRN Reason: Pain Or Fever > 100.5 hydrALAZINE HCL [Apresoline] 50 mg PO BID #60 tab Aspirin 81 mg PO DAILY #30 tab chlordiazePOXIDE HCl [Librium] 10 mg PO HS 2 Days #3 capsule Metoprolol Tartrate [Lopressor] 25 mg PO BID #60 tab Thiamine [Vitamin B-1] 100 mg PO DAILY #30 tablet Folic Acid 1 mg PO DAILY@1200 #30 tab Naltrexone HCl [Revia] 50 mg PO DAILY 30 Days #30 tab Sertraline [Zoloft] 50 mg PO DAILY 30 Days #30 tab Multivitamins, Thera [Multivitamin (formulary)] 1 tab PO DAILY@1200 amLODIPine [Norvasc] 5 mg PO DAILY #30 tab Lidocaine 5% Patch [Lidoderm 5% Patch] 1 patch TOPICAL DAILY PRN #30 patch PRN Reason: Pain Changed Omeprazole 40 mg PO DAILY PRN 30 Days #30 cap PRN Reason: gerds Discharge Medication List Acetaminophen Tab [Tylenol] 1,000 mg PO Q6H PRN 01/30/23 [History] Aspirin 81 mg PO DAILY #30 tab 02/02/23 [Rx] Metoprolol Tartrate [Lopressor] 25 mg PO BID #60 tab 02/02/23 [Rx] Thiamine [Vitamin B-1] 100 mg PO DAILY #30 tablet 02/02/23 [Rx] hydrALAZINE HCL [Apresoline] 50 mg PO BID #60 tab 02/02/23 [Rx] Folic Acid 1 mg PO DAILY@1200 #30 tab 02/25/23 [Rx] Naltrexone HCl [Revia] 50 mg PO DAILY 30 Days #30 tab 02/25/23 [Rx] Sertraline [Zoloft] 50 mg PO DAILY 30 Days #30 tab 02/25/23 [Rx] Multivitamins, Thera [Multivitamin (formulary)] 1 tab PO DAILY@1200 03/17/23 [History] amLODIPine [Norvasc] 5 mg PO DAILY #30 tab 03/19/23 [Rx] chlordiazePOXIDE HCl [Librium] 10 mg PO HS 2 Days #3 capsule 03/19/23 [Rx] Lidocaine 5% Patch [Lidoderm 5% Patch] 1 patch TOPICAL DAILY PRN #30 patch 04/02/23 [Rx] Levofloxacin [Levaquin] 500 mg PO Q24H 3 Days #3 tab 04/11/23 [Rx] Magnesium Oxide [Mag-Ox] 400 mg PO TID 5 Days #15 tab 04/11/23 [Rx] Omeprazole 40 mg PO DAILY PRN 30 Days #30 cap 04/11/23 [Rx] Follow up Appointment(s)/Referral(s): Greg Jorgensen DO [Doctor of Osteopathic Medicine] - 1 Week (for rib fracture ) Imelda Levy MD [Primary Care Provider] - 1-2 days (call on thursday for follow up appt) Patient Instructions/Handouts: Omeprazole (By mouth), Levofloxacin (By mouth), Magnesium (By mouth) Activity/Diet/Wound Care/Special Instructions: heart healthy diet activity is restricted till you see your doctor Discharge/Stand Alone Forms: AA Meetings [place], Community Resources, Outpatient Counseling, In Substance Abuse Facilities Discharge Disposition: HOME SELF-CARE
[2023-04-12] MEDS ORDERED: MAGNESIUM OXIDE 400 MG TAB PO SCH (16:00)
== END 2023-04-11 16:20 | disposition home or self-care (01) | DRG 897 ==
LOC: EC 13:03 → 5NMEDONC 15:39
PROVIDERS: ADMIT Hospitalist; ATTEND Hospitalist
DX: F10.239 Alcohol dependence with withdrawal, unspecified (principal); D61.818 Other pancytopenia; K52.1 Toxic gastroenteritis and colitis; E83.42 Hypomagnesemia; F43.10 Post-traumatic stress disorder, unspecified; I10 Essential (primary) hypertension; T51.91XA Toxic effect of unspecified alcohol, accidental (unintentional), initial encounter; K21.9 Gastro-esophageal reflux disease without esophagitis; Z79.82 Long term (current) use of aspirin; Z87.01 Personal history of pneumonia (recurrent); Z90.710 Acquired absence of both cervix and uterus; Z88.8 Allergy status to other drugs, medicaments and biological substances
CPT/HCPCS: 36415; 76705; 80048; 80053; 80076; 80320; 81001; 83605; 83735; 85025; 85027; 85610; 85730; 93005; 96361; 96365; 96372; 96375; 99285